=== PATIENT | female | born 1970 | race Hispanic/Latino ===

== ENCOUNTER 2024-06-09 23:19 | Emergency (ER) | payer MEDICAID ==
[~2024-06-09 23:19] MED LIST: ALBU6.7H14 IH; ASPI-1443 PO; ATOR40TA71 PO; BUPR-49 PO; CALC-1121 PO; CETI10TA57 PO; FENO145T26 PO; GABA-531 PO; GLIP5TAB15 PO; IBUP-2070 PO; LOSA50TA64 PO; METF-444 PO; NAPR-1192 PO; QUET300T19 PO
--- NOTE | 2024-06-09 23:28 | ERN ---
General Chief Complaint: Abdominal Pain Stated Complaint: ABDOMINAL PAIN, KNEE PAIN, ITCHING TO HANDS Time Seen by MD: 23:22 History of Present Illness Initial Comments 54F, hx HTN & obesity, presents for bilateral flank pain beginning 2 hours ago. She reports she has been in her normal state of health when she had sudden onset of left upper flank and right flank pain. She reports severe pain that is waxing and waning. She called EMS. EMS reports stable vital signs. Patient denies vomiting. She reports some recent loose stools without blood or mucus. No fevers. No chest pain or shortness of breath. She also reports that a few hours ago she had a fall onto her right knee. There is some pain but she is ambulatory. Neurovascularly intact. Allergies: Coded Allergies: No Known Drug Allergies (Verified Allergy, Severe, 01/05/16) Home Meds Reported Medications Calcium Carb/Magnesium Hydrox (Rolaids Chewable Tablet) 1 Each Tab.chew, 1 TAB PO TID PRN for INDIGESTION, TAB.CHEW 01/05/16 Naproxen (Naproxen) 375 Mg Tablet, 375 MG PO BID 01/05/16 Albuterol Sulfate (Proventil Hfa) 6.7 Gm Hfa.aer.ad, 2 PUFF IH Q6H 01/05/16 Quetiapine Fumarate (Quetiapine Fumarate) 300 Mg Tablet, 300 MG PO HS 01/05/16 Glipizide (Glipizide) 5 Mg Tablet, 5 MG PO ACBKFST 01/05/16 Cetirizine HCl (Cetirizine HCl) 10 Mg Tablet, 10 MG PO DAILY 01/05/16 Atorvastatin Calcium (Atorvastatin Calcium) 40 Mg Tablet, 40 MG PO DAILY 01/05/16 Metformin HCl (Metformin HCl) 500 Mg Tablet, 500 MG PO BIDMEALS 01/05/16 Bupropion HCl (Bupropion Xl) 150 Mg Tab.er.24h, 150 MG PO DAILY 01/05/16 Ibuprofen (Ibuprofen) 600 Mg Tablet, 600 MG PO Q6H PRN for PAIN 01/05/16 Fenofibrate Nanocrystallized (Fenofibrate) 145 Mg Tablet, 145 MG PO DAILY, TAB 01/05/16 Gabapentin (Gabapentin) 300 Mg Capsule, 300 MG PO BID 01/05/16 Aspirin (Aspirin EC) 81 Mg Tablet.dr, 81 MG PO DAILY 01/05/16 Losartan Potassium (Losartan Potassium) 50 Mg Tablet, 50 MG PO DAILY 01/05/16 Past Medical History Past Medical History: Diabetes-Type II, High Cholesterol, Hypertension Past Surgical History: None ROS Dictation CONSTITUTIONAL: No chills, no fever, no weakness, no diaphoresis, no malaise. HEAD/FACE: No signs of trauma. EENT: No eye pain, no blurred vision, no tearing, no double vision, no ear pain, no ear discharge, no nose pain, no nasal congestion, no throat pain, no throat swelling, no mouth pain. RESPIRATORY: No cough, no orthopnea, no SOB, no stridor, no wheezing. CARDIOVASCULAR: No chest pain, no edema, no palpitations, no syncope. GASTROINTESTINAL/ABDOMINAL: Abdominal pain GENITOURINARY: No abnormal discharge, no dysuria, no frequent urination, no hematuria. No complaints of pain in the genitals. MUSCULOSKELETAL: Right knee pain INTEGUMENTARY: No change in color, no change in hair/nails, no dryness, no lesion, no lumps, no rash. NEUROLOGICAL/PSYCH: No anxiety, not depressed, no emotional problem, no headache, no numbness, no pre-existing deficit, no history of seizures, no tremors, no weakness. HEMATOLOGIC/LYMPHATIC: Not anemic, no history of blood clots, no apparent b leeding, no bruising, glands not swollen. All Systems Negative, Except as Noted. Physical Exam Physical Exam Dictation VITAL SIGNS: Reviewed. GENERAL APPEARANCE: Alert, oriented x3, no acute distress, obese. HEAD AND FACE: Non-traumatic. EYES: PERRL, pink conjunctivas, eyelid no trauma, anterior chamber clear. EARS: Pinnas intact and no signs of trauma or erythema. Ear canals clear and no discharge. TMs no erythema. NOSE: No discharge, no bleeding. OROPHARYNX: Mouth normal, teeth no caries, tongue pink. Pharynx clear, no erythema. Tonsils no exudates, no abscesses noted. Mucous membrane moist. NECK: Supple, non-tender, no thyromegaly, no masses, no JVD, no bruits. BREAST: Deferred. CHEST: No tenderness, no crepitus, no paradoxical movement, no retractions. LUNGS: Clear, well-ventilated, symmetric, no rales, no wheezing, no rhonchi, no stridor, good breath sounds bilaterally. HEART: Regular rate, regular rhythm, no murmur, no gallops. VASCULAR: No peripheral edema. ABDOMEN: Soft, positive bowel sounds, nondistended, no guarding, nontender, no rebound, no masses no hepatomegaly, no splenomegaly, no Caceres's sign, no hernias. RECTAL: Deferred. GENITAL: Deferred. NEUROLOGICAL: Normal speech, gross motor function intact, gross sensory function intact. MUSCULOSKELETAL: Neck nontender, full range of motion, back nontender, full ra nge of motion. EXTREMITIES: Nontender, full range of motion. SKIN: Color pink, dry, no turgor, no rash, no lacerations, no abrasions, no contusions. LYMPHATICS: Deferred. Results Laboratory and Microbiology Lab and Micro Result Laboratory Tests Test 06/09/24 23:34 06/09/24 23:39 White Blood Count 8.5 K/uL (4.8-10.8) Red Blood Count 4.79 MIL/uL (4.00-5.50) Hemoglobin 14.0 g/dL (12.0-16.0) Hematocrit 42.7 % (36-48) Mean Corpuscular Volume 89.1 fL (79-99) Mean Corpuscular Hemoglobin 29.2 pg (27.0-33.0) Mean Corpuscular Hemoglobin Concent 32.8 g/dL (32.0-36.0) Red Cell Distribution Width 14.8 % (11.0-15.5) Platelet Count 245 K/uL (130-400) Mean Platelet Volume 10.0 fL (7.5-10.5) Immature Granulocyte % (Auto) 0.4 % (0-1) Neutrophils (%) (Auto) 60.8 % (40.0-77.0) Lymphocytes (%) (Auto) 30.1 % (21.0-51.0) Monocytes (%) (Auto) 6.4 % (3.0-13.0) Eosinophils (%) (Auto) 2.1 % (0.0-8.0) Basophils (%) (Auto) 0.2 % (0.0-5.0) Neutrophils # (Auto) 5.2 K/uL (1.8-7.7) Lymphocytes # (Auto) 2.6 K/uL (1.0-4.8) Monocytes # (Auto) 0.5 K/uL (0.1-1.0) Eosinophils # (Auto) 0.18 K/uL (0.00-0.70) Basophils # (Auto) 0.02 K/uL (0.00-0.20) Absolute Immature Granulocyte (auto 0.03 K/uL (0-1) Nucleated Red Blood Cells 0.0 % (0.0-0.19) Sodium Level 133 mmol/L (136-145) L Potassium Level 3.9 mmol/L (3.5-5.1) Chloride Level 99 mmol/L (101-111) L Carbon Dioxide Level 27 mmol/L (21-32) Blood Urea Nitrogen 14 mg/dL (7-18) Creatinine 0.7 mg/dL (0.5-1.0) Glomerular Filtration Rate Calc 101 mL/min (>90) Random Glucose 276 mg/dL (70-105) H Total Calcium 9.7 mg/dL (8.5-10.1) Total Bilirubin 0.3 mg/dL (0.2-1.0) Direct Bilirubin 0.1 mg/dL (0.0-0.3) Aspartate Amino Transf (AST/SGOT) 9 U/L (10-37) L Alanine Aminotransferase (ALT/SGPT) 21 U/L (12-78) Alkaline Phosphatase 99 U/L (50-136) Troponin I High Sensitivity 5 ng/L (4-50) Total Protein 7.2 g/dL (6.0-8.3) Albumin 3.2 g/dL (3.5-5.0) L Lipase 61 U/L (16-77) Urine Color COLORLESS (YELLOW) Urine Appearance CLEAR (CLEAR) Urine pH 6.0 (5.0-8.0) Urine Specific [place] 1.005 (1.001-1.031) Urine Protein NEGATIVE mg/dL (NEGATIVE) Urine Glucose (UA) 500 mg/dL (NEGATIVE) H Urine Ketones NEGATIVE mg/dL (NEGATIVE) Urine Occult Blood NEGATIVE (NEGATIVE) Urine Nitrate NEGATIVE (NEGATIVE) Urine Bilirubin NEGATIVE mg/dL (NEGATIVE) Urine Urobilinogen 0.2 mg/dL (0.2-1.0) Urine Leukocyte Esterase 500 Pennie/uL (NEGATIVE) H Urine RBC 2-5 /HPF (0-1) H Urine WBC 26-50 /HPF (0-1) H Urine Squamous Epithelial Cells RARE /HPF (0-2) Urine Bacteria FEW /HPF (None Seen) MDM CC: Flank pain bilaterally, lower abdominal pain Historian: Patient Comorbidities: Hypertension and obesity Limitations by social determinants of health: None Initial differential diagnosis: Pyelo Nephritis, kidney stones, UTI, AAA, other Vital signs: Stable, remains stable in ER. CBC normal. BMP normal. Liver function tests normal. Glucose mildly elevated 276. Lipase normal. Urinalysis: Glucose, leuk esterase, WBCs. Concerned for infection. CT abdomen and pelvis unremarkable. My interpretation. X-ray shows some degenerative changes per my interpretation. Otherwise normal. Patient received 1 g of Rocephin here in the ER. 1 L of normal saline. Dose of Reglan. We will discharge with antibiotics recommended PCP follow up. Very low suspicion for SIRS or sepsis or life threats. ED Course Orders Procedure Category Date Status Time Cbc With Differential LAB 06/09/24 Complete 23:22 Troponin I High LAB 06/09/24 Complete Sensitivity 23:22 Urinalysis Profile LAB 06/09/24 Complete 23:22 Ct Abdomen/Pelvis CT 06/09/24 Resulted W/Contrast 23:22 12 Lead Ekg Tracing- EKG 06/09/24 Complete Technical 23:22 0.9%Nacl 1000ml (Ns PHA 06/09/24 Complete 1000ml) 23:30 Lipase LAB 06/09/24 Complete 23:22 Basic Metabolic Panel LAB 06/09/24 Complete 23:22 Hepatic Function Panel LAB 06/09/24 Complete 23:22 Metoclopramide 10 PHA 06/09/24 Complete Mg/2 Ml Vial (Reglan 1 23:30 Knee 3vws Rt RAD 06/09/24 Resulted 23:28 Culture Urine TRAN 06/09/24 In Process 23:50 Iohexol (Omnipaque) PHA 06/10/24 Complete 00:30 Ceftriaxone 1g Vial PHA 06/10/24 Complete (Rocephine 1g Inj) 01:00 Current Medications Medications (Trade) Dose Ordered Sig/Zach Route PRN Reason Start Time Stop Time Status Last Admin Dose Admin Ceftriaxone Sodium (ROCEphine 1G INJ) 1 gm ONCE ONCE IVPB 06/10/24 01:00 06/10/24 01:01 DC 06/10/24 00:55 Iohexol (Omnipaque) 35,000 mg STK-MED ONCE IV 06/10/24 00:30 06/10/24 00:30 DC Metoclopramide HCl (regLAN 10MG IV) 10 mg ONCE ONCE IVP 06/09/24 23:30 06/09/24 23:31 DC 06/09/24 23:53 Sodium Chloride 1,000 ml @ 0 mls/hr ONCE ONCE IV 06/09/24 23:30 06/09/24 23:31 DC 06/09/24 23:53 Vital Signs Date Time Temp Pulse Resp B/P (MAP) Pulse Ox O2 Delivery O2 Flow Rate FiO2 06/09/24 23:40 98.1 85 20 177/77 97 Room Air* 0 21 06/09/24 23:20 98.2 79 16 127/59 98 Room Air 0 DX & DISP Disposition: Discharge Departure Impression: Primary Impression: UTI (urinary tract infection) Additional Impression: Knee osteoarthritis Condition: Stable Scripts Cefpodoxime Proxetil (Cefpodoxime Proxetil) 100 Mg Tablet 1 TAB PO BID for 7 Days, #14 TAB 0 Refills Prov: MARIA G NOLAN DO 06/10/24 Meloxicam (Meloxicam) 15 Mg Tablet 15 MG PO DAILY PRN for PAIN for 10 Days, #10 TAB Prov: MARIA G NOLAN DO 06/10/24 Additional Instructions: You have a urinary tract infection. This is likely causing your symptoms. You also have osteoarthritis in your right knee. This may be causing your symptoms. Your blood work (CBC, BMP, liver function tests, lipase urinalysis) shows urinary tract infection. You also have mildly elevated blood glucose. Otherwise your lab work is normal. The knee x-ray shows osteoarthritis or degenerative changes. The CT scan of the abdomen and pelvis is unremarkable. You received 1 g of Rocephin, which is an antibiotic, here in the emergency depa rtment. You also received IV fluids and Reglan for abdominal discomfort. I have prescribed cefpodoxime, which is an antibiotic. Please take as prescribed. I have prescribed meloxicam to use as needed for the arthritis in her right knee. You can also wrapped the knee and use ice as needed. I recommend he follow up with her primary doctor for re-evaluation later this week. Referrals: MICHELLE TOVAR MD (PCP) MARIA G NOLAN DO Jun 09, 2024 23:28
--- NOTE | 2024-06-09 23:40 | EKG ---
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
[2024-06-09 23:42] LABS: BASOPHILS # (AUTO) 0.02 K/uL (0.00-0.20); BASOPHILS % (AUTO) 0.2 % (0.0-5.0); EOSINOPHILS # (AUTO) 0.18 K/uL (0.00-0.70); EOSINOPHILS % (AUTO) 2.1 % (0.0-8.0); HEMATOCRIT 42.7 % (36-48); IMMATURE GRANULOCYTE ABSOLUTE 0.03 K/uL (0-1); LYMPHOCYTES # (AUTO) 2.6 K/uL (1.0-4.8); LYMPHOCYTES % (AUTO) 30.1 % (21.0-51.0); MEAN CORPUSCULAR HEMOGLOBIN 29.2 pg (27.0-33.0); MEAN CORPUSCULAR HGB CONC 32.8 g/dL (32.0-36.0); MEAN CORPUSCULAR VOLUME 89.1 fL (79-99); MONOCYTES # (AUTO) 0.5 K/uL (0.1-1.0); MONOCYTES % (AUTO) 6.4 % (3.0-13.0); NEUTROPHILS # (AUTO) 5.2 K/uL (1.8-7.7); NEUTROPHILS % (AUTO) 60.8 % (40.0-77.0); PLATELET COUNT (AUTO) 245 K/uL (130-400); RED BLOOD CELL COUNT(AUTO) 4.79 MIL/uL (4.00-5.50); RED CELL DISTRIBUTION WIDTH 14.8 % (11.0-15.5); WHITE BLOOD COUNT (AUTO) 8.5 K/uL (4.8-10.8)
[2024-06-09 23:49] LABS: APPEARANCE,URINE CLEAR (CLEAR); BILIRUBIN,URINE NEGATIVE (NEGATIVE); COLOR,URINE COLORLESS (YELLOW); GLUCOSE, URINE (UA) 500 mg/dL (NEGATIVE); KETONES,URINE NEGATIVE (NEGATIVE); LEUKOCYTE ESTERASE ,URINE 500 Leu/uL (NEGATIVE); NITRATE,URINE NEGATIVE (NEGATIVE); OCCULT BLOOD,URINE NEGATIVE (NEGATIVE); PROTEIN,URINE NEGATIVE (NEGATIVE); UROBILINOGEN,URINE 0.2 mg/dL (0.2-1.0)
[2024-06-09 23:50] LABS: ADD UA MICROSCOPIC YES
[2024-06-09] MEDS: metoCLOPRAmide 10 MG/2 ML VIAL IVP ONE (23:53)
[2024-06-09] MEDS: 0.9%NACL 1000ML 1,000 ML IV ONE (23:53)
[2024-06-09 23:56] LABS: BACTERIA,URINE FEW /HPF (None Seen); MUCUS,URINE RARE LPF (None Seen); SQUAMOUS EPITHELIAL CELL,UR RARE /HPF (0-2); WBC,URINE 26-50 /HPF (0-1)
[2024-06-10] LABS: ALBUMIN 3.2 g/dL (3.5-5.0); BILIRUBIN,DIRECT 0.1 mg/dL (0.0-0.3); BILIRUBIN,TOTAL 0.3 mg/dL (0.2-1.0); CREATININE 0.7 mg/dL (0.5-1.0); POTASSIUM 3.9 mmol/L (3.5-5.1); TOTAL PROTEIN, SERUM 7.2 g/dL (6.0-8.3)
--- NOTE | 2024-06-10 00:06 | HMCIMG ---
KNEE 3VWS RT HISTORY: Status post fall COMPARISON: None TECHNIQUE: 3 images of left knee were obtained. FINDINGS: There is no acute displaced fracture or dislocation. Mild degenerative changes are seen. IMPRESSION: 1. Findings as described above.
[2024-06-10] MEDS ORDERED: IOHEXOL 350 MG/ML 100ML INFUS..BTL IV ONE (00:30)
[2024-06-10] MEDS: cefTRIAXone 1G VIAL IVPB ONE (00:55)
--- NOTE | 2024-06-10 01:13 | HMCIMG ---
CT ABDOMEN/PELVIS W/CONTRAST HISTORY: Abdominal pain COMPARISON: 07/18/2016 TECHNIQUE: Multiple sequential axial images of the abdomen and pelvis were obtained from the dome of the diaphragm through symphysis pubis. Patient was given 100 cc of Omnipaque through intravenous route. Oral contrast was not given. FINDINGS: No pleural effusion is seen bilaterally. There is no evidence of parenchymal disease or pulmonary nodule of the visualized lower lungs. Degenerative changes of the thoracolumbar spine are present. The heart is not enlarged. Gallbladder is not seen. Liver is enlarged measuring 22 cm. The liver, spleen, adrenal glands and pancreas are unremarkable. There is no evidence of hydronephrosis bilaterally. No evidence of renal stone is seen. Fecal material is seen in the colon. There are normal size retroperitoneal and mesenteric lymph nodes. No ascites is seen. No CT evidence of acute appendicitis is seen. Pelvic sidewalls are symmetric bilaterally. Bladder is poorly distended. IMPRESSION: 1. No acute findings. CT was performed with one or more following dose reduction techniques: automated exposure control, adjustment of the mA and kv according to patient's size, or use of a iterative reconstruction technique.
[2024-06-10] MEDS ORDERED: MELO-108 PO (01:47)
[2024-06-10] MEDS ORDERED: CEFP100T9 PO (01:47)
[2024-06-10 01:57] VITALS: BP 116/66; PULSE 85; RESP 20; TEMP 98.1; O2SAT 98
== END 2024-06-10 02:10 | disposition home or self-care (01) ==
LOC: EDH 23:19
DX: N39.0 Urinary tract infection, site not specified (principal); M17.11 Unilateral primary osteoarthritis, right knee; E11.9 Type 2 diabetes mellitus without complications; E66.9 Obesity, unspecified; E78.00 Pure hypercholesterolemia, unspecified; I10 Essential (primary) hypertension; Z79.82 Long term (current) use of aspirin; Z79.899 Other long term (current) drug therapy
CPT/HCPCS: 99285; 74177; 96361; 96375; 80076; 84484; 80048; 83690; 85025; 87086; 81001; 36415; 73562; 93005; 96365; J7030; J2765; J0696; Q9967

== ENCOUNTER 2024-07-29 19:57 | Emergency (ER) | payer MEDICAID ==
[~2024-07-29] VITALS: Ht 157.5 cm; Wt 127.0 kg
[~2024-07-29 19:57] MED LIST changes: +CEFP100T9 PO; +MELO-108 PO
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
[2024-07-29] MEDS: acetaMINOPHEN 500 MG TABLET PO ONE (20:44)
--- NOTE | 2024-07-29 20:58 | HMCIMG ---
ANKLE COMP 3VWS RT HISTORY: Ankle pain COMPARISON: None TECHNIQUE: 3 images of right ankle were obtained. FINDINGS: There is no acute displaced fracture or dislocation. There is soft tissue swelling. There is a calcaneal spur. Degenerative changes are seen. IMPRESSION: 1. Findings as described above.
--- NOTE | 2024-07-29 21:55 | HMCIMG ---
ELBOW COMP 3+VWS LT HISTORY: Elbow pain COMPARISON: None TECHNIQUE: 3 images of left elbow were obtained. FINDINGS: There is no acute displaced fracture or dislocation. Degenerative changes are seen. The study is limited due to poor positioning. IMPRESSION: 1. Findings as described above.
[2024-07-29] MEDS: ketOROlac 30MG VIAL (30MG/ML) IM ONE (21:56)
[2024-07-29] MEDS ORDERED: DICL20GE TP (22:01)
[2024-07-29 23:00] VITALS: BP 122/74; PULSE 92; RESP 16; TEMP 98; O2SAT 99
== END 2024-07-29 23:14 | disposition home or self-care (01) ==
LOC: EDH 19:57
DX: G89.29 Other chronic pain (principal); M25.571 Pain in right ankle and joints of right foot; M25.722 Osteophyte, left elbow; E11.9 Type 2 diabetes mellitus without complications; E78.00 Pure hypercholesterolemia, unspecified; I10 Essential (primary) hypertension; Z79.82 Long term (current) use of aspirin; Z79.899 Other long term (current) drug therapy
CPT/HCPCS: 99284; 73610; 73080; 96372; J1885

== ENCOUNTER 2024-08-14 00:20 | Emergency (ER) | payer MEDICAID ==
[~2024-08-14 00:20] MED LIST changes: +DICL20GE TP
[2024-08-14 00:30] VITALS: TEMP 98.3
[2024-08-14 01:17] LABS: BASOPHILS # (AUTO) 0.03 K/uL (0.00-0.20); BASOPHILS % (AUTO) 0.4 % (0.0-5.0); EOSINOPHILS # (AUTO) 0.28 K/uL (0.00-0.70); EOSINOPHILS % (AUTO) 3.4 % (0.0-8.0); HEMATOCRIT 43.7 % (36-48); IMMATURE GRANULOCYTE ABSOLUTE 0.04 K/uL (0-1); LYMPHOCYTES # (AUTO) 3.1 K/uL (1.0-4.8); LYMPHOCYTES % (AUTO) 37.3 % (21.0-51.0); MEAN CORPUSCULAR HEMOGLOBIN 29.7 pg (27.0-33.0); MEAN CORPUSCULAR HGB CONC 32.7 g/dL (32.0-36.0); MEAN CORPUSCULAR VOLUME 90.7 fL (79-99); MONOCYTES # (AUTO) 0.6 K/uL (0.1-1.0); NEUTROPHILS # (AUTO) 4.3 K/uL (1.8-7.7); NEUTROPHILS % (AUTO) 51.4 % (40.0-77.0); PLATELET COUNT (AUTO) 250 K/uL (130-400); RED BLOOD CELL COUNT(AUTO) 4.82 MIL/uL (4.00-5.50); RED CELL DISTRIBUTION WIDTH 14.5 % (11.0-15.5); WHITE BLOOD COUNT (AUTO) 8.3 K/uL (4.8-10.8)
[2024-08-14] MEDS: 0.9%NACL 1000ML 1,000 ML IV ONE (01:22)
[2024-08-14] MEDS: INSULIN humuLIN R 100 UNIT/ML 3ML IV ONE (01:23)
[2024-08-14 01:26] LABS: APPEARANCE,URINE CLEAR (CLEAR); BILIRUBIN,URINE NEGATIVE (NEGATIVE); COLOR,URINE YELLOW (YELLOW); GLUCOSE, URINE (UA) >=1000 mg/dL (NEGATIVE); KETONES,URINE 5 mg/dL (NEGATIVE); LEUKOCYTE ESTERASE ,URINE 250 Leu/uL (NEGATIVE); MUCUS,URINE RARE LPF (None Seen); NITRATE,URINE NEGATIVE (NEGATIVE); OCCULT BLOOD,URINE NEGATIVE (NEGATIVE); PROTEIN,URINE NEGATIVE (NEGATIVE); SQUAMOUS EPITHELIAL CELL,UR FEW /HPF (0-2); UROBILINOGEN,URINE 0.2 mg/dL (0.2-1.0)
[2024-08-14 01:30] LABS: CREATININE 0.7 mg/dL (0.5-1.0); POTASSIUM 4.4 mmol/L (3.5-5.1)
--- NOTE | 2024-08-14 01:38 | ERN ---
ED Note History of Present Illness Stated Complaint: C/O RASH AND ITCHYING TO HANDS AND GROIN AREA Chief Complaint: Skin Rash/Abscess Time Seen by MD: 00:44 Time Seen by Midlevel: 00:44 Dictation: The patient is a 54-year-old female with a history of hypertension, diabetes, bipolar who presents to the emergency department with complaints of itchiness in between her fingers and in her groin area onset 7:00 p.m.. Patient reports itchiness stopped in the ambulance. Denies any known allergens. Allergies: Coded Allergies: No Known Drug Allergies (Verified Allergy, Severe, 01/05/16) Home Meds Active Scripts Diclofenac Sodium (Voltaren Arthritis Pain) 1 % Gel..gram., 20 GM TP BID for 10 Days, #1 TUBE Prov:SANGEETA GUILLAUME MD 07/29/24 Cefpodoxime Proxetil (Cefpodoxime Proxetil) 100 Mg Tablet, 1 TAB PO BID for 7 Days, #14 TAB 0 Refills Prov:MARIA G NOLAN DO 06/10/24 Meloxicam (Meloxicam) 15 Mg Tablet, 15 MG PO DAILY PRN for PAIN for 10 Days, #10 TAB Prov:MARIA G NOLAN DO 06/10/24 Reported Medications Calcium Carb/Magnesium Hydrox (Rolaids Chewable Tablet) 1 Each Tab.chew, 1 TAB PO TID PRN for INDIGESTION, TAB.CHEW 01/05/16 Naproxen (Naproxen) 375 Mg Tablet, 375 MG PO BID 01/05/16 Albuterol Sulfate (Proventil Hfa) 6.7 Gm Hfa.aer.ad, 2 PUFF IH Q6H 01/05/16 Quetiapine Fumarate (Quetiapine Fumarate) 300 Mg Tablet, 300 MG PO HS 01/05/16 Glipizide (Glipizide) 5 Mg Tablet, 5 MG PO ACBKFST 01/05/16 Cetirizine HCl (Cetirizine HCl) 10 Mg Tablet, 10 MG PO DAILY 01/05/16 Atorvastatin Calcium (Atorvastatin Calcium) 40 Mg Tablet, 40 MG PO DAILY 01/05/16 Metformin HCl (Metformin HCl) 500 Mg Tablet, 500 MG PO BIDMEALS 01/05/16 Bupropion HCl (Bupropion Xl) 150 Mg Tab.er.24h, 150 MG PO DAILY 01/05/16 Ibuprofen (Ibuprofen) 600 Mg Tablet, 600 MG PO Q6H PRN for PAIN 01/05/16 Fenofibrate Nanocrystallized (Fenofibrate) 145 Mg Tablet, 145 MG PO DAILY, TAB 01/05/16 Gabapentin (Gabapentin) 300 Mg Capsule, 300 MG PO BID 01/05/16 Aspirin (Aspirin EC) 81 Mg Tablet.dr, 81 MG PO DAILY 01/05/16 Losartan Potassium (Losartan Potassium) 50 Mg Tablet, 50 MG PO DAILY 01/05/16 Past Medical History Past Medical History: Bipolar, Diabetes-Type II, High Cholesterol, Hypertension Additional Past Medical Hx: INSOMNIA Surgical History: Other Surgical History Other: HERNIA REPAIR RN Note Reviewed/Agreed w/PFSH: Yes Review of System Dictation Constitutional: Negative for fever,chills, and weight loss Eyes: Negative for injury, pain,redness, and discharge ENT: Negative for injury,pain or swelling Cardiovascular: Negative for chest pain, palpitations, and edema Respiratory: Negative for shortness of breath, cough, and wheezing, Abdomen/GI: Negative for abdominal pain, nausea, vomiting, diarrhea, and constipation Back: Negative for injury and pain : Negative for injury, bleeding and discharge MS/Extremity: Negative for injury and deformity Skin: Negative for rash, and discoloration positive for itchiness Neuro: Negative for headache, weakness, numbness, tingling, and seizure Psych: Negative for suicide ideation, homicidal ideation, and hallucinations Initial Vital Sign VS Vital Signs Date Time Temp Pulse Resp B/P (MAP) Pulse Ox O2 Delivery O2 Flow Rate FiO2 08/14/24 00:30 98.2 87 18 130/75 97 Room Air 0 08/14/24 00:57 21 Physical Exam Dictation Vital Signs reviewed General Appearance: Alert, oriented x 3, no acute distress, well developed, nourished. Head and Face: non-traumatic. Eyes: PERRL, pink conjunctivas, eyelid no trauma, anterior chamber with arcus senilis. Ears: Pinnas intact and no signs of trauma or erythema ear canals clear and no discharge TM no erythema Nose: No discharge, no bleeding. Oropharynx: Mouth normal, tongue pink. pharynx clear,no erythema, tonsils no exudates, no abscesses noted, mucous membrane moist Neck: Supple, non-tender, no thyromegaly, no masses, no JVD, no bruits Breast:Deferred Chest:No tenderness, no crepitus, no paradoxical movement, no retractions Lungs:Clear, well-ventilated, symmetric, no rales, no wheezing, no rhonchi, no stridor, good breath sounds bilaterally Heart: Regular rate, regular rhythm, no murmur, no gallops Vascular: no peripheral edema, Abdomen: Soft, positive bowel sounds, nondistended, no guarding, nontender, no rebound, no masses no hepatomegaly, no splenomegaly, no Caceres's sign, no hernias. 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 Multiple scabs noted to upper extremities and lower extremities, no draining about 0.5 cm in diameter. No obvious wounds in between fingers Lymphatic: Deferred Results (Laboratory/Radiology) Laboratory/Radiology Laboratory Tests Test 08/14/24 00:47 08/14/24 00:48 08/14/24 01:05 Urine Color YELLOW (YELLOW) Urine Appearance CLEAR (CLEAR) Urine pH 6.0 (5.0-8.0) Urine Specific [place] 1.023 (1.001-1.031) Urine Protein NEGATIVE mg/dL (NEGATIVE) Urine Glucose (UA) >=1000 mg/dL (NEGATIVE) H Urine Ketones 5 mg/dL (NEGATIVE) H Urine Occult Blood NEGATIVE (NEGATIVE) Urine Nitrate NEGATIVE (NEGATIVE) Urine Bilirubin NEGATIVE mg/dL (NEGATIVE) Urine Urobilinogen 0.2 mg/dL (0.2-1.0) Urine Leukocyte Esterase 250 Pennie/uL (NEGATIVE) H Urine RBC 2-5 /HPF (0-1) H Urine WBC 6-10 /HPF (0-1) H Urine Squamous Epithelial Cells FEW /HPF (0-2) Urine Bacteria None /HPF (None Seen) Whole Blood Glucose 326 MG/DL (70-110) H White Blood Count 8.3 K/uL (4.8-10.8) Red Blood Count 4.82 MIL/uL (4.00-5.50) Hemoglobin 14.3 g/dL (12.0-16.0) Hematocrit 43.7 % (36-48) Mean Corpuscular Volume 90.7 fL (79-99) Mean Corpuscular Hemoglobin 29.7 pg (27.0-33.0) Mean Corpuscular Hemoglobin Concent 32.7 g/dL (32.0-36.0) Red Cell Distribution Width 14.5 % (11.0-15.5) Platelet Count 250 K/uL (130-400) Mean Platelet Volume 10.4 fL (7.5-10.5) Immature Granulocyte % (Auto) 0.5 % (0-1) Neutrophils (%) (Auto) 51.4 % (40.0-77.0) Lymphocytes (%) (Auto) 37.3 % (21.0-51.0) Monocytes (%) (Auto) 7.0 % (3.0-13.0) Eosinophils (%) (Auto) 3.4 % (0.0-8.0) Basophils (%) (Auto) 0.4 % (0.0-5.0) Neutrophils # (Auto) 4.3 K/uL (1.8-7.7) Lymphocytes # (Auto) 3.1 K/uL (1.0-4.8) Monocytes # (Auto) 0.6 K/uL (0.1-1.0) Eosinophils # (Auto) 0.28 K/uL (0.00-0.70) Basophils # (Auto) 0.03 K/uL (0.00-0.20) Absolute Immature Granulocyte (auto 0.04 K/uL (0-1) Nucleated Red Blood Cells 0.0 % (0.0-0.19) Sodium Level 136 mmol/L (136-145) Potassium Level 4.4 mmol/L (3.5-5.1) Chloride Level 101 mmol/L (101-111) Carbon Dioxide Level 28 mmol/L (21-32) Blood Urea Nitrogen 19 mg/dL (7-18) H Creatinine 0.7 mg/dL (0.5-1.0) Glomerular Filtration Rate Calc 101 mL/min (>90) Random Glucose 343 mg/dL (70-105) H Total Calcium 9.2 mg/dL (8.5-10.1) Total Bilirubin 0.4 mg/dL (0.2-1.0) Direct Bilirubin 0.1 mg/dL (0.0-0.3) Aspartate Amino Transf (AST/SGOT) 12 U/L (10-37) Alanine Aminotransferase (ALT/SGPT) 26 U/L (12-78) Alkaline Phosphatase 92 U/L (50-136) Troponin I High Sensitivity 6 ng/L (4-50) Total Protein 6.5 g/dL (6.0-8.3) Albumin 3.1 g/dL (3.5-5.0) L Lipase 47 U/L (16-77) Labs Reviewed?: Yes EKG: (+) NSR, (+) rhythm (Sinus rhythm) EKG Comment: EKG 08/14/2024 0156 ventricular rate 80, regular rate and rhythm, normal sinus rhythm, no STEMI, low voltage ED Course ED Course Orders Procedure Category Date Status Time Cbc With Differential LAB 08/14/24 Complete 00:59 0.9%Nacl 1000ml (Ns PHA 08/14/24 Complete 1000ml) 01:00 Basic Metabolic Panel LAB 08/14/24 Complete 00:59 Insulin Regular, PHA 08/14/24 Complete Human 3ml (Humulin R 01:00 Pelvic Exam Set Up CPOE 08/14/24 Transmitted (Er) 00:59 Urinalysis LAB 08/14/24 Complete W/Microscopic 00:47 Culture Urine TRAN 08/14/24 In Process 01:26 Diphenhydramine Hcl PHA 08/14/24 Complete (Benadryl Inj) 02:00 Ceftriaxone 1g Vial PHA 08/14/24 Complete (Rocephine 1g Inj) 02:00 12 Lead Ekg Tracing- EKG 08/14/24 Logged Technical 01:52 Acetaminophen 500mg PHA 08/14/24 Complete Tab (Tylenol 500mg T 02:00 Lipase LAB 08/14/24 Complete 01:52 Hepatic Function Panel LAB 08/14/24 Complete 01:52 Troponin I High LAB 08/14/24 Complete Sensitivity 01:52 Famotidine 20mg Vial PHA 08/14/24 Complete (Pepcid 20mg Vial) 02:00 Current Medications Medications (Trade) Dose Ordered Sig/Zach Route PRN Reason Start Time Stop Time Status Last Admin Dose Admin Acetaminophen (TYLenol 500MG TAB) 1,000 mg ONCE ONCE PO 08/14/24 02:00 08/14/24 02:01 DC 12/12/24 02:19 Ceftriaxone Sodium (ROCEphine 1G INJ) 1 gm ONCE ONCE IVPB 08/14/24 02:00 08/14/24 02:01 DC 08/14/24 02:15 Diphenhydramine HCl (BENAdryl INJ) 25 mg ONCE ONCE IV 08/14/24 02:00 08/14/24 02:01 DC 08/14/24 02:17 Famotidine (Pepcid 20mg Vial) 20 mg ONCE ONCE IV 08/14/24 02:00 08/14/24 02:01 DC 08/14/24 02:14 Insulin Human Regular (humuLIN R 100 UNIT/ML 3ML) 5 unit ONCE ONCE IV 08/14/24 01:00 08/14/24 01:02 DC 08/14/24 01:23 Sodium Chloride 1,000 ml @ 0 mls/hr ONCE ONCE IV 08/14/24 01:00 08/14/24 01:02 DC 08/14/24 01:22 Vital Signs Date Time Temp Pulse Resp B/P (MAP) Pulse Ox O2 Delivery O2 Flow Rate FiO2 08/14/24 00:57 84 18 129/70 97 Room Air* 0 21 08/14/24 00:30 98.2 87 18 130/75 97 Room Air 0 Medical Decision Making MDM The patient is a 54-year-old female with a history of hypertension, diabetes, bipolar who presents to the emergency department with complaints of itchiness in between her fingers and in her groin area onset 7:00 p.m.. Patient reports itchiness stopped in the ambulance. Denies any known allergens. Upon exami nation of pelvic exam patient reported she has mid right and left side abdominal pain that is worse with movement. Patient inconsistent with the history reports that is has been going on for a month. Reports occasional nonbloody diarrhea. Denies any nausea, vomiting, chest pain. CBC showed no leukocytosis, no anemia, chemistry showed hyperglycemia with no DKA. Patient was treated with the insulin and fluids, negative lipase, normal liver enzymes, negative troponin, normal renal function, urinalysis positive for UTI. Patient was treated with the Rocephin. Patient continues in no distress. On physical examination abdomen is soft and nontender to palpation. Patient will be discharged to follow up with PCP. Differential diagnosis: UTI, pancreatitis, gastroenteritis, scabies, hives, ACS, allergic reaction Need for hospitalization: Patient does not meet criteria for hospitalization. There are no social concerns with this patient. DX & DISP Disposition: Discharge Departure Impression: Primary Impression: Scabies Additional Impressions: UTI (urinary tract infection), Uncontrolled diabetes mellitus with hyperglycemia, Abdominal pain, Diarrhea Condition: Stable Scripts Permethrin (Permethrin) 5 % Cream..g. 1 APPL TP ONCE for 1 Day, #60 GM 0 Refills massage into skin from head to soles of feet one time, leave on for 8-14 hours then remove by thorough washing Prov: NIDIA GONZALES 08/14/24 Nitrofurantoin Monohyd/M-Cryst (Macrobid 100 mg Capsule) 100 Mg Capsule 1 CAP PO BID for 5 Days, #10 CAP 0 Refills Prov: NIDIA GONZALES 08/14/24 Additional Instructions: Please follow up with pcp in 1-2 days, take medications as prescribed. If symptoms worsen or dont improve please return to ER or visit PCP for possible dermatology referral. FOLLOW-UP WITH PRIMARY CARE PROVIDER IN 1 TO 2 DAYS. TAKE MEDICATIONS D IRECTED HERE IN THE EMERGENCY ROOM. OKAY TO CONTINUE HOME MEDICATIONS UNLESS OTHERWISE DISCUSSED DURING YOUR VISIT IN THE EMERGENCY ROOM TODAY. RETURN TO YOUR NEAREST EMERGENCY ROOM IF SYMPTOMS WORSEN OR IF THERE IS NO IMPROVEMENT. CALL 911 IF YOU NEED IMMEDIATE ASSISTANCE. TAKE TYLENOL OR MOTRIN [id number] NEEDED AND IF NO CONTRAINDICATIONS ARE PRESENT. INCREASE ORAL HYDRATION. A WOUND CULTURE OR URINE CULTURE WAS ORDERED HERE IN THE EMERGENCY ROOM DEPARTMENT PLEASE FOLLOW-UP WITH PRIMARY CARE PROVIDER AND ADVISE THEM TO GET REPEAT PORTS FROM OUR FACILITY. IF YOU HAD ANY JENNIE WRAP/SPLINTS THAT WERE APPLIED HERE, PLEASE DO NOT REMOVE THEM UNTIL YOU SEE YOUR PRIMARY CARE OR SPECIALTY. Referrals: JAKE CASON MD (PCP) Time of Disposition: 02:41 I have reviewed the case, and I agree with, Diagnosis and Plan CHRISTIANNIDIA COPE Aug 14, 2024 01:38
[2024-08-14] MEDS: FAMOTIDINE 20MG VIAL IV ONE (02:14)
[2024-08-14] MEDS: cefTRIAXone 1G VIAL IVPB ONE (02:15)
[2024-08-14] MEDS: DiphenhydrAMINE HCL 50 MG/ML VIAL IV ONE (02:17)
[2024-08-14] MEDS: acetaMINOPHEN 500 MG TABLET PO ONE (02:19)
[2024-08-14 02:27] LABS: ALBUMIN 3.1 g/dL (3.5-5.0); BILIRUBIN,DIRECT 0.1 mg/dL (0.0-0.3); BILIRUBIN,TOTAL 0.4 mg/dL (0.2-1.0); TOTAL PROTEIN, SERUM 6.5 g/dL (6.0-8.3)
[2024-08-14] MEDS ORDERED: PERM60CR4 TP (02:48)
[2024-08-14] MEDS ORDERED: NITR100C4 PO (02:48)
[2024-08-14 03:09] VITALS: BP 129/72; PULSE 79; RESP 18; O2SAT 96
--- NOTE | 2024-08-14 07:43 | EKG ---
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
== END 2024-08-14 03:52 | disposition home or self-care (01) ==
LOC: EDH 00:20
DX: B86 Scabies (principal); E11.65 Type 2 diabetes mellitus with hyperglycemia; N39.0 Urinary tract infection, site not specified; Z98.890 Other specified postprocedural states; E78.00 Pure hypercholesterolemia, unspecified; I10 Essential (primary) hypertension; F31.9 Bipolar disorder, unspecified; Z79.1 Long term (current) use of non-steroidal anti-inflammatories (NSAID); Z79.82 Long term (current) use of aspirin; Z79.899 Other long term (current) drug therapy; R19.7 Diarrhea, unspecified
CPT/HCPCS: 99284; 96365; 96375; 96361; 80076; 84484; 80048; 83690; 85025; 87086; 82948 ×2; 81001; 36415; 93005; J1815; J1200; J3490; J7030; J0696

== ENCOUNTER 2024-10-13 03:43 | Emergency (ER) | payer MEDICAID ==
[~2024-10-13] VITALS: Ht 157.5 cm; Wt 140.2 kg
[~2024-10-13 03:43] MED LIST changes: +NITR100C4 PO; +PERM60CR4 TP
--- NOTE | 2024-10-13 03:58 | ERN ---
ED Note History of Present Illness Stated Complaint: ABDOMINAL PAIN Chief Complaint: Abdominal Pain Time Seen by MD: 03:49 Dictation: This is a 54-year-old extremely obese female who came in via EMS for abdominal pain she stated that it started around midnight mostly in the upper abdomen throughout. She complains of nausea but no vomitings diarrhea hematemesis or melena. Her last bowel movement was earlier today. Stated that she did not eat anything because of the pain and she has not slept all night. No other family members are sick she denied any fevers chills or rigors. Temperature 98.2 pulse 87 respirations 16 blood pressure 119/55 with a pulse oximetry of 94% on room air Her chronic medical problems include diabetes mellitus type 2, hypertension, hypercholesterolemia and bipolar disorder Allergies: Coded Allergies: No Known Drug Allergies (Verified Allergy, Severe, 01/05/16) Home Meds Active Scripts Permethrin (Permethrin) 5 % Cream..g., 1 APPL TP ONCE for 1 Day, #60 GM 0 Refills massage into skin from head to soles of feet one time, leave on for 8-14 hours then remove by thorough washing Prov:NIDIA GONZALES [facility] 08/14/24 Nitrofurantoin Monohyd/M-Cryst (Macrobid 100 mg Capsule) 100 Mg Capsule, 1 CAP PO BID for 5 Days, #10 CAP 0 Refills Prov:NIDIA GONZALES [facility] 08/14/24 Diclofenac Sodium (Voltaren Arthritis Pain) 1 % Gel..gram., 20 GM TP BID for 10 Days, #1 TUBE Prov:SANGEETA GUILLAUME MD 07/29/24 Cefpodoxime Proxetil (Cefpodoxime Proxetil) 100 Mg Tablet, 1 TAB PO BID for 7 Days, #14 TAB 0 Refills Prov:MARIA G NOLAN DO 06/10/24 Meloxicam (Meloxicam) 15 Mg Tablet, 15 MG PO DAILY PRN for PAIN for 10 Days, #10 TAB Prov:MARIA G NOLAN DO 06/10/24 Reported Medications Calcium Carb/Magnesium Hydrox (Rolaids Chewable Tablet) 1 Each Tab.chew, 1 TAB PO TID PRN for INDIGESTION, TAB.CHEW 01/05/16 Naproxen (Naproxen) 375 Mg Tablet, 375 MG PO BID 01/05/16 Albuterol Sulfate (Proventil Hfa) 6.7 Gm Hfa.aer.ad, 2 PUFF IH Q6H 01/05/16 Quetiapine Fumarate (Quetiapine Fumarate) 300 Mg Tablet, 300 MG PO HS 01/05/16 Glipizide (Glipizide) 5 Mg Tablet, 5 MG PO ACBKFST 01/05/16 Cetirizine HCl (Cetirizine HCl) 10 Mg Tablet, 10 MG PO DAILY 01/05/16 Atorvastatin Calcium (Atorvastatin Calcium) 40 Mg Tablet, 40 MG PO DAILY 01/05/16 Metformin HCl (Metformin HCl) 500 Mg Tablet, 500 MG PO BIDMEALS 01/05/16 Bupropion HCl (Bupropion Xl) 150 Mg Tab.er.24h, 150 MG PO DAILY 01/05/16 Ibuprofen (Ibuprofen) 600 Mg Tablet, 600 MG PO Q6H PRN for PAIN 01/05/16 Fenofibrate Nanocrystallized (Fenofibrate) 145 Mg Tablet, 145 MG PO DAILY, TAB 01/05/16 Gabapentin (Gabapentin) 300 Mg Capsule, 300 MG PO BID 01/05/16 Aspirin (Aspirin EC) 81 Mg Tablet.dr, 81 MG PO DAILY 01/05/16 Losartan Potassium (Losartan Potassium) 50 Mg Tablet, 50 MG PO DAILY 01/05/16 Past Medical History Past Medical History: Bipolar, Diabetes-Type II, High Cholesterol, Hypertension Additional Past Medical Hx: INSOMNIA Surgical History: Other Surgical History Other: HERNIA REPAIR Family History: Negative Social History: Smokers (Half a pack per day) History: Not Applicable RN Note Reviewed/Agreed w/PFSH: Yes Review of System Dictation Constitutional: Negative for fever,chills, and weight loss Eyes: Negative for injury, pain,redness, and discharge ENT: Negative for injury,pain or swelling Cardiovascular: Negative for chest pain, palpitations, and edema Respiratory: Negative for shortness of breath, cough, and wheezing, Abdomen/GI: Positive for abdominal pain, nausea, denied vomiting, diarrhea, and constipation Back: Negative for injury and pain : Negative for injury, bleeding and discharge MS/Extremity: Negative for injury and deformity Skin: Negative for rash, and discoloration Neuro: Negative for headache, weakness, numbness, tingling, and seizure Psych: Negative for suicide ideation, homicidal ideation, and hallucinations Initial Vital Sign VS Vital Signs Date Time Temp Pulse Resp B/P (MAP) Pulse Ox O2 Delivery O2 Flow Rate FiO2 10/13/24 03:44 98.2 87 16 119/55 94 Room Air 0 10/13/24 04:48 21 Physical Exam Dictation General: awake, alert, NAD extremely obese Head/Face: Normocephalic, atraumatic Eyes: PERRL, EOMI, vision at baseline ENT: oral cavity clear, TMs clear, no signs of infection Neck: Trachea midline, supple, no nuchal rigidity Cardiovascular: RRR, normal S1/S2, No MRGs, no JVD Respiratory: CTAB, no respiratory distress, No rales or wheezes Abdomen: Soft, mild tenderness in the upper abdomen r, very obese, normal bowel sounds, no guarding or rebound. Skin: Warm, dry, normal turgor, no rash MS/Extremity: Pulses equal, no cyanosis, neurovascular intact, FROM Neuro: COAx4, GCS 15, strength 5/5, CN 2-12 intact, normal cerebellar exam, normal gait, Psych: Normal behavior, mood, and affect normal Extremities-trace edema without any palpable cords, Homans sign is negative Results (Laboratory/Radiology) Laboratory/Radiology Laboratory Tests Test 10/13/24 04:48 10/13/24 05:04 10/13/24 05:44 White Blood Count 8.3 K/uL (4.8-10.8) Red Blood Count 5.07 MIL/uL (4.00-5.50) Hemoglobin 15.4 g/dL (12.0-16.0) Hematocrit 45.0 % (36-48) Mean Corpuscular Volume 88.8 fL (79-99) Mean Corpuscular Hemoglobin 30.4 pg (27.0-33.0) Mean Corpuscular Hemoglobin Concent 34.2 g/dL (32.0-36.0) Red Cell Distribution Width 14.0 % (11.0-15.5) Platelet Count 248 K/uL (130-400) Mean Platelet Volume 10.6 fL (7.5-10.5) H Immature Granulocyte % (Auto) 0.4 % (0-1) Neutrophils (%) (Auto) 63.4 % (40.0-77.0) Lymphocytes (%) (Auto) 28.3 % (21.0-51.0) Monocytes (%) (Auto) 5.7 % (3.0-13.0) Eosinophils (%) (Auto) 2.0 % (0.0-8.0) Basophils (%) (Auto) 0.2 % (0.0-5.0) Neutrophils # (Auto) 5.3 K/uL (1.8-7.7) Lymphocytes # (Auto) 2.4 K/uL (1.0-4.8) Monocytes # (Auto) 0.5 K/uL (0.1-1.0) Eosinophils # (Auto) 0.17 K/uL (0.00-0.70) Basophils # (Auto) 0.02 K/uL (0.00-0.20) Absolute Immature Granulocyte (auto 0.03 K/uL (0-1) Nucleated Red Blood Cells 0.0 % (0.0-0.19) Sodium Level 138 mmol/L (136-145) Potassium Level 4.0 mmol/L (3.5-5.1) Chloride Level 100 mmol/L (101-111) L Carbon Dioxide Level 26 mmol/L (21-32) Blood Urea Nitrogen 8 mg/dL (7-18) Creatinine 0.5 mg/dL (0.5-1.0) Glomerular Filtration Rate Calc 110 mL/min (>90) Random Glucose 318 mg/dL (70-105) H Total Calcium 8.8 mg/dL (8.5-10.1) Lipase 22 U/L (16-77) Urine Color YELLOW (YELLOW) Urine Appearance CLOUDY (CLEAR) H Urine pH 5.5 (5.0-8.0) Urine Specific [place] 1.041 (1.001-1.031) Urine Protein 10 mg/dL (NEGATIVE) H Urine Glucose (UA) >=1000 mg/dL (NEGATIVE) H Urine Ketones 40 mg/dL (NEGATIVE) H Urine Occult Blood MODERATE (NEGATIVE) H Urine Nitrate NEGATIVE (NEGATIVE) Urine Bilirubin NEGATIVE mg/dL (NEGATIVE) Urine Urobilinogen 0.2 mg/dL (0.2-1.0) Urine Leukocyte Esterase 500 Pennie/uL (NEGATIVE) H Urine RBC 51-100 /HPF (0-1) H Urine WBC 51-100 /HPF (0-1) H Urine Squamous Epithelial Cells FEW /HPF (0-2) Urine Bacteria MANY /HPF (None Seen) Whole Blood Glucose 347 MG/DL (70-110) H Labs Reviewed?: Yes CT Scan Comment: CT ABDOMEN AND PELVIS WITHOUT CONTRAST THE LIVER SPLEEN AND PANCREAS AND RIGHT KIDNEY ARE NORMAL WITH THE EXCEPTION OF A MALROTATED RIGHT KIDNEY, NONOBSTRUCTIVE MICRO NEPHROLITHIASIS NOTED LEFT KIDNEY, PROBABLE BILATERAL ADRENAL ADENOMA PRESENT MEASURING UP TO 2.2 CM ON THE LEFT, STATUS POST CHOLECYSTECTOMY, SMALL AND LARGE BOWEL AND THE APPENDIX ARE NORMAL, ED Course ED Course Orders Procedure Category Date Status Time Cbc With Differential LAB 10/13/24 Complete 03:59 Urinalysis Profile LAB 10/13/24 Complete 03:59 Morphine 4mg Syg PHA 10/13/24 Complete (Morphine 4mg Syg) 04:00 Ondansetron 4mg Inj PHA 10/13/24 Complete (Zofran 4mg Inj) 04:00 Famotidine 20mg Vial PHA 10/13/24 Complete (Pepcid 20mg Vial) 04:00 Lipase LAB 10/13/24 Complete 03:59 Basic Metabolic Panel LAB 10/13/24 Complete 03:59 Insulin Regular, PHA 10/13/24 Complete Human 3ml (Humulin R 06:00 Ct Abdomen/Pelvis W/O CT 10/13/24 Taken Contrast 05:44 Culture Urine TRAN 10/13/24 In Process 05:53 Ketorolac PHA 10/13/24 Complete Tromethamine 15mg/Ml 08:30 Nystatin 15 Gm Powder PHA 10/13/24 Complete (Nystop 15 Gm Powd 08:30 Current Medications Medications (Trade) Dose Ordered Sig/Zach Route PRN Reason Start Time Stop Time Status Last Admin Dose Admin Famotidine (Pepcid 20mg Vial) 20 mg ONCE ONCE IV 10/13/24 04:00 10/13/24 04:03 DC 10/13/24 04:54 Insulin Human Regular (humuLIN R 100 UNIT/ML 3ML) 12 unit ONCE ONCE SQ 10/13/24 06:00 10/13/24 06:01 DC 10/13/24 05:51 Ketorolac Tromethamine (toRADol) 15 mg ONCE ONCE IV 10/13/24 08:30 10/13/24 08:31 DC 10/13/24 08:09 Morphine Sulfate (morPHINE 4MG SYG) 4 mg ONCE ONCE IVP 10/13/24 04:00 10/13/24 04:03 DC 10/13/24 04:55 Nystatin (NystOP 15 GM POWDER) 1 APPLICATION ONCE ONCE TP 10/13/24 08:30 10/13/24 08:31 DC Ondansetron HCl (zoFRAN 4MG INJ) 4 mg ONCE ONCE IVP 10/13/24 04:00 10/13/24 04:03 DC 10/13/24 04:54 Vital Signs Date Time Temp Pulse Resp B/P (MAP) Pulse Ox O2 Delivery O2 Flow Rate FiO2 10/13/24 08:13 98.1 82 18 131/80 98 Room Air* 0 21 10/13/24 05:55 70 17 118/76 95 Room Air* 0 21 10/13/24 04:48 98.4 77 18 125/72 94 Room Air* 0 21 10/13/24 03:44 98.2 87 16 119/55 94 Room Air 0 We will perform diagnostic labs, advanced imaging and administer medications according to the patient's complaint. Once the results are available, will review and personally interpreted the labs to rule out any acute life- threatening emergency the trach require immediate intervention and treatment. I will then re-evaluate the patient after treatment and diagnostic exams have return to determine whether the patient requires any further testing, can safely be discharged home or need further admission to hospital for additional t reatment and evaluation. Medical Decision Making MDM MDM: DIFFERENTIAL DIAGNOSIS: ABDOMINAL PAIN, HYPERGLYCEMIA, GASTRITIS, GASTROENTERITIS, APPENDICITIS PATIENT IS A 54-YEAR-OLD FEMALE COMING IN TO BE EVALUATED FOR ABDOMINAL PAIN. LABORATORY WORKUP POSITIVE FOR ELEVATED GLUCOSE. CT DID NOT DISCLOSE ACUTE FINDINGS. WILL BE DISCHARGED STABLE CONDITION PAIN-FREE Problem List Problem List: (1) Abdominal pain (2) Uncontrolled diabetes mellitus with hyperglycemia DX & DISP Disposition: Discharge Departure Impression: Primary Impression: Abdominal pain Additional Impression: Uncontrolled diabetes mellitus with hyperglycemia Condition: Stable Additional Instructions: Patient and the caregiver have been informed of all the diagnostic tests and the imaging conducted during the today's visit to the emergency room and has verbalized understanding of the results I have personally reviewed and interpreted all diagnostic exams performed here in the ER today as well as the vital signs documented by the nursing staff. The patient is now being discharged to home and should follow up with the primary care physician or the specialist as directed by the ER staff. Follow-up with primary care provider in 1 to 2 days. Take medications as directed here in the emergency room. Okay to continue home medications unless otherwise discussed during your visit in the emergency room today. Return to your nearest emergency room if symptoms worsen or if there is no improvement. Call 911 if you need immediate assistance. Take Tylenol or Motrin over-the- counter as needed and if no contraindications are present. Increase oral hydration. A wound culture or urine culture was ordered here in the emergency room department please follow-up with primary care provider and advise them to get repeat ports from our facility. If you had any [place] wrap/splints that were applied here, please do not remove them until you see your primary care or specialty. Referrals: JAKE CASON MD (PCP) Time of Disposition: 09:06 ORLIN REDMAN MD Oct 13, 2024 03:57 SANGEETA GUILLAUME MD Oct 13, 2024 09:07
--- NOTE | 2024-10-13 04:43 | NUR ---
PT CARE ASSUMED AT THIS TIME
[2024-10-13] MEDS: ondanSETRON 4MG INJ IVP ONE (04:54)
[2024-10-13] MEDS: FAMOTIDINE 20MG VIAL IV ONE (04:54)
[2024-10-13] MEDS: morPHINE 4 MG SYG IVP ONE (04:55)
[2024-10-13 05:00] LABS: BASOPHILS # (AUTO) 0.02 K/uL (0.00-0.20); BASOPHILS % (AUTO) 0.2 % (0.0-5.0); EOSINOPHILS # (AUTO) 0.17 K/uL (0.00-0.70); IMMATURE GRANULOCYTE ABSOLUTE 0.03 K/uL (0-1); LYMPHOCYTES # (AUTO) 2.4 K/uL (1.0-4.8); LYMPHOCYTES % (AUTO) 28.3 % (21.0-51.0); MEAN CORPUSCULAR HEMOGLOBIN 30.4 pg (27.0-33.0); MEAN CORPUSCULAR HGB CONC 34.2 g/dL (32.0-36.0); MEAN CORPUSCULAR VOLUME 88.8 fL (79-99); MONOCYTES # (AUTO) 0.5 K/uL (0.1-1.0); MONOCYTES % (AUTO) 5.7 % (3.0-13.0); NEUTROPHILS # (AUTO) 5.3 K/uL (1.8-7.7); NEUTROPHILS % (AUTO) 63.4 % (40.0-77.0); PLATELET COUNT (AUTO) 248 K/uL (130-400); RED BLOOD CELL COUNT(AUTO) 5.07 MIL/uL (4.00-5.50); WHITE BLOOD COUNT (AUTO) 8.3 K/uL (4.8-10.8)
[2024-10-13 05:31] LABS: CREATININE 0.5 mg/dL (0.5-1.0)
[2024-10-13 05:49] LABS: APPEARANCE,URINE CLOUDY (CLEAR); BILIRUBIN,URINE NEGATIVE (NEGATIVE); COLOR,URINE YELLOW (YELLOW); GLUCOSE, URINE (UA) >=1000 mg/dL (NEGATIVE); KETONES,URINE 40 mg/dL (NEGATIVE); LEUKOCYTE ESTERASE ,URINE 500 Leu/uL (NEGATIVE); NITRATE,URINE NEGATIVE (NEGATIVE); OCCULT BLOOD,URINE MODERATE (NEGATIVE); PH,URINE 5.5 (5.0-8.0); PROTEIN,URINE 10 mg/dL (NEGATIVE); UROBILINOGEN,URINE 0.2 mg/dL (0.2-1.0)
[2024-10-13] MEDS: INSULIN humuLIN R 100 UNIT/ML 3ML SQ ONE (05:51)
[2024-10-13 05:53] LABS: ADD UA MICROSCOPIC YES
[2024-10-13 05:57] LABS: BACTERIA,URINE MANY /HPF (None Seen); MUCUS,URINE RARE LPF (None Seen); RBC,URINE 51-100 /HPF (0-1); SQUAMOUS EPITHELIAL CELL,UR FEW /HPF (0-2); WBC,URINE 51-100 /HPF (0-1)
--- NOTE | 2024-10-13 06:04 | NUR ---
PT LEFT TO CT AT THIS TIME. PT SHOWS NO SIGNS OF DISTRESS.
--- NOTE | 2024-10-13 06:25 | NUR ---
PT BACK FROM CT AT THIS TIME
--- NOTE | 2024-10-13 07:09 | NUR ---
REPORT GIVEN TO CHRISTOPHER GRAHAM AT THIS TIME
[2024-10-13] MEDS: ketOROlac 15MG/ML VIAL (15MG/ML) IV ONE (08:09)
[2024-10-13 08:13] VITALS: BP 131/80; PULSE 82; RESP 18; TEMP 98.1; O2SAT 98
[2024-10-13] MEDS ORDERED: CEPH500B PO (09:47)
[2024-10-13] MEDS: NYSTatin 15 GM POWDER TP ONE ×2 (09:56→09:57)
[2024-10-13] MEDS: cePHALexin 500 MG CAPSULE PO ONE (10:05)
--- NOTE | 2024-10-13 10:10 | HMCIMG ---
CT ABDOMEN/PELVIS W/O CONTRAST HISTORY: Diffuse abdominal pain COMPARISON: 06/10/2024 TECHNIQUE: Multiple sequential axial images of the abdomen and pelvis were obtained from the dome of the diaphragm through symphysis pubis. Patient was not given contrast through intravenous route. Oral contrast was not given. FINDINGS: No pleural effusion is seen bilaterally. There is no evidence of parenchymal disease or pulmonary nodule of the visualized lower lungs. Degenerative changes of the thoracolumbar spine are present. The heart is not enlarged. Liver measured 22 cm. Postcholecystectomy changes are seen. There is right adrenal adenoma measuring 14 mm. There is left adrenal adenoma measuring 11 mm. The liver, spleen, pancreas are unremarkable. There is no evidence of hydronephrosis bilaterally. Small bilateral renal pelvic stones with the largest measuring 3 mm. Fecal material is seen in the colon. There are normal size retroperitoneal and mesenteric lymph nodes. No ascites is seen. No CT evidence of acute appendicitis seen. Pelvic sidewalls are symmetric bilaterally. Bladder is moderately distended. IMPRESSION: 1. Bilateral adrenal adenoma. Bilateral renal pelvic stones without hydronephrosis. No ascites. CT was performed with one or more following dose reduction techniques: automated exposure control, adjustment of the mA and kv according to patient's size, or use of a iterative reconstruction technique.
== END 2024-10-13 10:13 | disposition home or self-care (01) ==
LOC: EDH 03:43
DX: R10.84 Generalized abdominal pain (principal); E11.65 Type 2 diabetes mellitus with hyperglycemia; E78.00 Pure hypercholesterolemia, unspecified; F17.210 Nicotine dependence, cigarettes, uncomplicated; I10 Essential (primary) hypertension; F31.9 Bipolar disorder, unspecified; Z79.1 Long term (current) use of non-steroidal anti-inflammatories (NSAID); Z79.82 Long term (current) use of aspirin; Z79.899 Other long term (current) drug therapy; Z98.890 Other specified postprocedural states
CPT/HCPCS: 99285; 74176; 96374; 96375; 80048; 83690; 85025; 87086; 82948; 81001; 36415; 96372; J1815; J1885; J3490; J2405; J2270

== ENCOUNTER 2024-10-16 23:33 | Inpatient (IN) | payer MEDICAID ==
[~2024-10-16] VITALS: Ht 157.5 cm; Wt 136.1 kg
[~2024-10-16 23:33] MED LIST changes: +CEPH500B PO
--- NOTE | 2024-10-16 23:42 | ERN ---
ED Note History of Present Illness Stated Complaint: NAUSEA/VOMITING/ DIARRHEA Chief Complaint: Nausea,Vomiting,Diarrhea Time Seen by MD: 23:39 Dictation: This is a 54-year-old extremely obese female who came in via EMS for abdominal pain She complains of nausea vomitings diarrhea denies hematemesis or melena. Her last bowel movement was earlier today. She was seen in the emergency room on 10/13/2024 for same complaints due to extreme obesity suboptimal exam a CT scan of the abdomen and pelvis was done. This showed small nonobstructing renal pelvic stones but no bowel abnormalities. No other family members are sick she denied any fevers chills or rigors. Temperature 98 pulse 83 respirations 16 blood pressure 142/75 with a pulse oximetry of 95% on room air Her chronic medical problems include diabetes mellitus type 2, hypertension, hypercholesterolemia and bipolar disorder Allergies: Coded Allergies: No Known Drug Allergies (Verified Allergy, Severe, 01/05/16) Home Meds Active Scripts Cephalexin Monohydrate (Keflex) 500 Mg Cap, 1 CAP PO BID for 10 Days, #20 CAP 0 Refills Prov:SANGEETA GUILLAUME MD 10/13/24 Permethrin (Permethrin) 5 % Cream..g., 1 APPL TP ONCE for 1 Day, #60 GM 0 Refills massage into skin from head to soles of feet one time, leave on for 8-14 hours then remove by thorough washing Prov:NIDIA GONZALES [facility] 08/14/24 Nitrofurantoin Monohyd/M-Cryst (Macrobid 100 mg Capsule) 100 Mg Capsule, 1 CAP PO BID for 5 Days, #10 CAP 0 Refills Prov:NIDIA GONZALES [employer] 08/14/24 Diclofenac Sodium (Voltaren Arthritis Pain) 1 % Gel..gram., 20 GM TP BID for 10 Days, #1 TUBE Prov:SANGEETA GUILLAUME MD 07/29/24 Cefpodoxime Proxetil (Cefpodoxime Proxetil) 100 Mg Tablet, 1 TAB PO BID for 7 Days, #14 TAB 0 Refills Prov:MARIA G NOLAN DO 06/10/24 Meloxicam (Meloxicam) 15 Mg Tablet, 15 MG PO DAILY PRN for PAIN for 10 Days, #10 TAB Prov:MARIA G NOLAN DO 06/10/24 Reported Medications Calcium Carb/Magnesium Hydrox (Rolaids Chewable Tablet) 1 Each Tab.chew, 1 TAB PO TID PRN for INDIGESTION, TAB.CHEW 01/05/16 Naproxen (Naproxen) 375 Mg Tablet, 375 MG PO BID 01/05/16 Albuterol Sulfate (Proventil Hfa) 6.7 Gm Hfa.aer.ad, 2 PUFF IH Q6H 01/05/16 Quetiapine Fumarate (Quetiapine Fumarate) 300 Mg Tablet, 300 MG PO HS 01/05/16 Glipizide (Glipizide) 5 Mg Tablet, 5 MG PO ACBKFST 01/05/16 Cetirizine HCl (Cetirizine HCl) 10 Mg Tablet, 10 MG PO DAILY 01/05/16 Atorvastatin Calcium (Atorvastatin Calcium) 40 Mg Tablet, 40 MG PO DAILY 01/05/16 Metformin HCl (Metformin HCl) 500 Mg Tablet, 500 MG PO BIDMEALS 01/05/16 Bupropion HCl (Bupropion Xl) 150 Mg Tab.er.24h, 150 MG PO DAILY 01/05/16 Ibuprofen (Ibuprofen) 600 Mg Tablet, 600 MG PO Q6H PRN for PAIN 01/05/16 Fenofibrate Nanocrystallized (Fenofibrate) 145 Mg Tablet, 145 MG PO DAILY, TAB 01/05/16 Gabapentin (Gabapentin) 300 Mg Capsule, 300 MG PO BID 01/05/16 Aspirin (Aspirin EC) 81 Mg Tablet.dr, 81 MG PO DAILY 01/05/16 Losartan Potassium (Losartan Potassium) 50 Mg Tablet, 50 MG PO DAILY 01/05/16 Past Medical History Past Medical History: Bipolar, Diabetes-Type II, High Cholesterol, Hypertension Additional Past Medical Hx: INSOMNIA Surgical History: Other Surgical History Other: HERNIA REPAIR Family History: Negative Social History: Smokers History: Not Applicable RN Note Reviewed/Agreed w/PFSH: Yes Review of System Dictation Constitutional: Negative for fever,chills, and weight loss Eyes: Negative for injury, pain,redness, and discharge ENT: Negative for injury,pain or swelling Cardiovascular: Negative for chest pain, palpitations, and edema Respiratory: Negative for shortness of breath, cough, and wheezing, Abdomen/GI: Positive for abdominal pain, nausea, vomiting, diarrhea, denies constipation Back: Negative for injury and pain : Negative for injury, bleeding and discharge MS/Extremity: Negative for injury and deformity Skin: Negative for rash, and discoloration Neuro: Negative for headache, weakness, numbness, tingling, and seizure Psych: Negative for suicide ideation, homicidal ideation, and hallucinations Initial Vital Sign VS Vital Signs Date Time Temp Pulse Resp B/P (MAP) Pulse Ox O2 Delivery O2 Flow Rate FiO2 10/16/24 23:34 98.1 83 16 142/75 95 Room Air 0 Physical Exam Dictation General: awake, alert, NAD elderly obese lady Head/Face: Normocephalic, atraumatic Eyes: PERRL, EOMI, vision at baseline ENT: oral cavity clear, TMs clear, no signs of infection Neck: Trachea midline, supple, no nuchal rigidity Cardiovascular: RRR, normal S1/S2, No MRGs, no JVD Respiratory: CTAB, no respiratory distress, No rales or wheezes Abdomen: Soft, obese diffusely tender, normal bowel sounds, no guarding or rebound. Skin: Warm, dry, normal turgor, no rash MS/Extremity: Pulses equal, no cyanosis, neurovascular intact, FROM Neuro: COAx4, GCS 15, strength 5/5, CN 2-12 intact, normal cerebellar exam, normal gait, Psych: Normal behavior, mood, and affect normal Extremities-trace edema without any palpable cords, Homans sign is negative Results (Laboratory/Radiology) Laboratory/Radiology Laboratory Tests Test 10/17/24 00:35 White Blood Count 6.4 K/uL (4.8-10.8) Red Blood Count 5.27 MIL/uL (4.00-5.50) Hemoglobin 15.9 g/dL (12.0-16.0) Hematocrit 47.5 % (36-48) Mean Corpuscular Volume 90.1 fL (79-99) Mean Corpuscular Hemoglobin 30.2 pg (27.0-33.0) Mean Corpuscular Hemoglobin Concent 33.5 g/dL (32.0-36.0) Red Cell Distribution Width 14.2 % (11.0-15.5) Platelet Count 197 K/uL (130-400) Mean Platelet Volume 10.5 fL (7.5-10.5) Immature Granulocyte % (Auto) 0.5 % (0-1) Neutrophils (%) (Auto) 54.9 % (40.0-77.0) Lymphocytes (%) (Auto) 32.7 % (21.0-51.0) Monocytes (%) (Auto) 10.2 % (3.0-13.0) Eosinophils (%) (Auto) 1.4 % (0.0-8.0) Basophils (%) (Auto) 0.3 % (0.0-5.0) Neutrophils # (Auto) 3.5 K/uL (1.8-7.7) Lymphocytes # (Auto) 2.1 K/uL (1.0-4.8) Monocytes # (Auto) 0.7 K/uL (0.1-1.0) Eosinophils # (Auto) 0.09 K/uL (0.00-0.70) Basophils # (Auto) 0.02 K/uL (0.00-0.20) Absolute Immature Granulocyte (auto 0.03 K/uL (0-1) Nucleated Red Blood Cells 0.0 % (0.0-0.19) Sodium Level 133 mmol/L (136-145) L Potassium Level 4.4 mmol/L (3.5-5.1) Chloride Level 99 mmol/L (101-111) L Carbon Dioxide Level 25 mmol/L (21-32) Blood Urea Nitrogen 9 mg/dL (7-18) Creatinine 0.5 mg/dL (0.5-1.0) Glomerular Filtration Rate Calc 110 mL/min (>90) Random Glucose 309 mg/dL (70-105) H Total Calcium 8.4 mg/dL (8.5-10.1) L Labs Reviewed?: Yes CT Scan Comment: PATIENT: CHANELL FAIR MR#: [id number] : 1970 SEX: F AGE: 54 LOCATION: [facility] ORDER 3 STATUS: REG REPORT#: [id number] SERVICE 3 REASON: diffuse abdominal pain ORDERING PHYSICIAN: ORLIN REDMAN MD PROCEDURE: ABD PEL WO - CT ABDOMEN/PELVIS W/O CONTRAST CT ABDOMEN/PELVIS W/O CONTRAST HISTORY: Diffuse abdominal pain COMPARISON: 06/10/2024 TECHNIQUE: Multiple sequential axial images of the abdomen and pelvis were obtained from the dome of the diaphragm through symphysis pubis. Patient was not given contrast through intravenous route. Oral contrast was not given. FINDINGS: No pleural effusion is seen bilaterally. There is no evidence of parenchymal disease or pulmonary nodule of the visualized lower lungs. Degenerative changes of the thoracolumbar spine are present. The heart is not enlarged. Liver measured 22 cm. Postcholecystectomy changes are seen. There is right adrenal adenoma measuring 14 mm. There is left adrenal adenoma measuring 11 mm. The liver, spleen, pancreas are unremarkable. There is no evidence of hydronephrosis bilaterally. Small bilateral renal pelvic stones with the largest measuring 3 mm. Fecal material is seen in the colon. There are normal size retroperitoneal and mesenteric lymph nodes. No ascites is seen. No CT evidence of acute appendicitis seen. Pelvic sidewalls are symmetric bilaterally. Bladder is moderately distended. IMPRESSION: 1. Bilateral adrenal adenoma. Bilateral renal pelvic stones without hydronephrosis. No ascites. CT was performed with one or more following dose reduction techniques: automated exposure control, adjustment of the mA and kv according to patient's size, or use of a iterative reconstruction technique. DICTATED BY: VIRGEN RODRIGUEZ MD DATE: 10/13/24 0817 ELECTRONICALLY SIGNED BY: VIRGEN RODRIGUEZ MD DATE: 10/13/24 1010 ED Course ED Course Orders Procedure Category Date Status Time Ondansetron 4mg Inj PHA 10/17/24 Complete (Zofran 4mg Inj) 00:00 Ketorolac PHA 10/17/24 Complete Tromethamine 30mg/Ml 00:00 Cbc With Differential LAB 10/17/24 Complete 00:37 Basic Metabolic Panel LAB 10/17/24 Complete 00:37 Edm Admit Bridge Order ADM 10/17/24 Transmitted 01:09 Admit Orders ADM 10/17/24 Transmitted 01:09 Ceftriaxone 1g Vial PHA 10/17/24 Transmitted (Rocephine 1g Inj) 01:30 Current Medications Medications (Trade) Dose Ordered Sig/Zach Route PRN Reason Start Time Stop Time Status Last Admin Dose Admin Ketorolac Tromethamine (toRADol) 30 mg ONCE ONCE IVP 10/17/24 00:00 10/17/24 00:01 DC 10/17/24 00:39 Ondansetron HCl (zoFRAN 4MG INJ) 4 mg ONCE ONCE IVP 10/17/24 00:00 10/17/24 00:01 DC 10/17/24 00:39 Vital Signs Date Time Temp Pulse Resp B/P (MAP) Pulse Ox O2 Delivery O2 Flow Rate FiO2 10/16/24 23:34 98.1 83 16 142/75 95 Room Air 0 We will administer medications according to the patient's complaint. Once the results are available, will review and personally interpreted the labs to rule out any acute life-threatening emergency the trach require immediate intervention and treatment. I will then re-evaluate the patient after treatment and diagnostic exams have return to determine whether the patient requires any further testing, can safely be discharged home or need further admission to hospital for additional treatment and evaluation. With ongoing symptoms, UTI, recommended that she be admitted to the hospital for a GI evaluation. She is agreeable 1:15 a.m.-patient accepted by [facility]-level provider for hospitalist group to be admitted to Dr. Olson Medical Decision Making MDM MDM: Differential diagnosis: Ongoing abdominal pain diffusely, nausea vomitings and diarrhea--diabetic gastroparesis, gastritis, medication related side effects Rationale: Tests considered and ordered secondary to shared decision making include: labs, ECG and radiology Previous outside records reviewed: Old ER visits. Risk of complication and/or morbidity or mortality of patient management: None Medications-Per medication reconciliation Need for hospitalization: Patient does meet criteria for hospitalization. Need for emergency major/minor surgery: No There are no social concerns with this patient. Prescription drug management Prescriptions will include symptomatic care Patient's prior external medical records from other ER visits were reviewed by me as indicated. Prior testing and results from previous visits were reviewed. Prior tests were taken into account with medical decision making and resource utilization, independent historian/historians were used to obtain complete medical history. I independently interpreted the test that were performed, results were reviewed by me and considered findings on radiology if ordered. Medical management and examination interpretation discussions were had by me with other qualified healthcare professionals as indicated for the patient's care. Problem List Problem List: (1) Abdominal pain (2) Uncontrolled diabetes mellitus with hyperglycemia (3) UTI (urinary tract infection) (4) Nausea vomiting and diarrhea DX & DISP Disposition: Inpatient Decision to Admit Time: 00:15 Departure Impression: Primary Impression: Abdominal pain Additional Impressions: Uncontrolled diabetes mellitus with hyperglycemia, UTI (urinary tract infection), Nausea vomiting and diarrhea Condition: Stable Additional Instructions: Patient and the caregiver have been informed of all the diagnostic tests and the imaging conducted during the today's visit to the emergency room and has verbalized understanding of the results I have personally reviewed and interpreted all diagnostic exams performed here in the ER today as well as the vital signs documented by the nursing staff. The patient is now being discharged to home and should follow up with the primary care physician or the specialist as directed by the ER staff. Follow-up with primary care provider in 1 to 2 days. Take medications as directed here in the emergency room. Okay to continue home medications unless otherwise discussed during your visit in the emergency room today. Return to your nearest emergency room if symptoms worsen or if there is no improvement. Call 911 if you need immediate assistance. Take Tylenol or Motrin [id number] nter as needed and if no contraindications are present. Increase oral hydration. A wound culture or urine culture was ordered here in the emergency room department please follow-up with primary care provider and advise them to get repeat ports from our facility. If you had any [place] wrap/splints that were applied here, please do not remove them until you see your primary care or s ty. Referrals: JAKE CASON MD (PCP) ORLIN REDMAN MD Oct 16, 2024 23:42
[2024-10-17] VITALS (13 sets, daily range): BP systolic 114–157; BP diastolic 54–82; PULSE 66–92; RESP 17–22; TEMP 97.6–98.3; O2SAT 93–97
[2024-10-17] MEDS: ketOROlac 30MG VIAL (30MG/ML) IVP ONE (00:39)
[2024-10-17] MEDS: ondanSETRON 4MG INJ IVP ONE (00:39)
[2024-10-17 00:43] LABS: BASOPHILS # (AUTO) 0.02 K/uL (0.00-0.20); BASOPHILS % (AUTO) 0.3 % (0.0-5.0); EOSINOPHILS # (AUTO) 0.09 K/uL (0.00-0.70); EOSINOPHILS % (AUTO) 1.4 % (0.0-8.0); HEMATOCRIT 47.5 % (36-48); IMMATURE GRANULOCYTE ABSOLUTE 0.03 K/uL (0-1); LYMPHOCYTES # (AUTO) 2.1 K/uL (1.0-4.8); LYMPHOCYTES % (AUTO) 32.7 % (21.0-51.0); MEAN CORPUSCULAR HEMOGLOBIN 30.2 pg (27.0-33.0); MEAN CORPUSCULAR HGB CONC 33.5 g/dL (32.0-36.0); MEAN CORPUSCULAR VOLUME 90.1 fL (79-99); MONOCYTES # (AUTO) 0.7 K/uL (0.1-1.0); MONOCYTES % (AUTO) 10.2 % (3.0-13.0); NEUTROPHILS # (AUTO) 3.5 K/uL (1.8-7.7); NEUTROPHILS % (AUTO) 54.9 % (40.0-77.0); PLATELET COUNT (AUTO) 197 K/uL (130-400); RED BLOOD CELL COUNT(AUTO) 5.27 MIL/uL (4.00-5.50); RED CELL DISTRIBUTION WIDTH 14.2 % (11.0-15.5); WHITE BLOOD COUNT (AUTO) 6.4 K/uL (4.8-10.8)
[2024-10-17 01:04] LABS: CREATININE 0.5 mg/dL (0.5-1.0); POTASSIUM 4.4 mmol/L (3.5-5.1)
[2024-10-17] MEDS: cefTRIAXone 1G VIAL IVPB ONE (02:32)
[2024-10-17] MEDS: 0.9%NACL 1000ML 1,000 ML IV SCH (02:32)
--- NOTE | 2024-10-17 02:51 | HP ---
[facility] HISTORY [facility] PHYSICAL Date of Service: Oct 17, 2024 Time of Service: 02:09 PCP: Kurt Woods HISTORY OF PRESENT ILLNESS: This is 54 years old female with past medical history of diabetes, hypertension, bipolar disorder and hyperlipidemia who was brought by EMS to the ED for complaints of abdominal pain associated with nausea,vomiting and diarrhea.which started yesterday.Patient also reports she has dark vomitus and her stool is very watery and she started having subjective fever and chills today.Patient al so reports she is unable to keep anything down so she decided to come to the ED .Patent reports she was here last 10/13 2024 for complaints of abdominal; painand was found she has UTI and was sent home on Antibiotic. Seen and examined patient in the ER awake,alert and coherent.Patient continue to complain of abdominal pain7/10 pain level.Patient denies sore throat,cough,chest pain,palpitation and shortness of breath. Latest vital signs temperature 98.1, heart rate 76, respiration 22, blood pressure 124/41 saturation 96% on room air. Labs: CBC is normal. Sodium 133, potassium 4.4 chloride 99, glucose 309 total calcium 8.4. There was a CT abdomen and pelvis without contrast done on October 13, 2024 which revealed bilateral adrenal adenoma. Bilateral renal pelvic stones without hydronephrosis. No ascites. While in the ER patient received Rocephin 1 g IV, Toradol 30 mg IV and Zofran 4 mg IV. We will admit patient for further medical management. REVIEW OF SYSTEMS CONSTITUTIONAL: Complained of fever and chills Denies fevers, chills, or night sweats. No unintentional weight loss reported. NEUROLOGICAL: Denies headache, amaurosis fugax, motor weakness, sensory def icit, vertigo/spinning sensation, gait abnormalities, or tremors. ENT: No hearing loss, otalgia, otorrhea, rhinitis, rhinorrhea, hoarseness, or sore throat. CARDIOVASCULAR: Denies any exertional angina, dyspnea on exertion, orthopnea, paroxysmal nocturnal dyspnea, palpitations, life-threatening arrhythmias, claudication. PULMONARY: Denies any shortness of breath, cough, phlegm/sputum, hemoptysis, pleuritic chest pain. SLEEP: Denies morning headaches, daytime somnolence or napping. Denies difficulty falling asleep, staying asleep, waking from sleep. Denies knowledge of snoring. GASTROINTESTINAL: Complained of abdominal pain, nausea and vomiting and diarrhea Denies any type of dysphagia to either liquids or solids. Denies pyrosis, early satiety, constipation, or changes in stool consistency or caliber. Denies coffee-ground emesis, hematemesis, hematochezia, or melanotic stools. GENITOURINARY: Denies frequency, urgency, nocturia, hematuria or incontinence (Storage/Irritative symptoms.) Low urinary stream, straining to void, urinary intermittency or hesitancy, splitting of the voiding stream, terminal dribbling. ENDOCRINOLOGIC: Denies polyuria, polydipsia, polyphagia or heat/cold intolerances. HEMATOLOGIC: Denies thrombophilia/previous clots, or coagulopathy/bleeding disorders. ONCOLOGIC: Denies personal history of malignancy. DERMATOLOGIC: Denies rashes or pruritus. PSYCHIATRIC: Denies any suicidal or homicidal ideation. Denies hallucinations. PAST MEDICAL HISTORY: [ diabetes, hypertension, bipolar disorder and hyperlipidemia] PAST SURGICAL HISTORY: [ Umbilical hernia repair and hysterectomy ] PAST SOCIAL HISTORY: [ Patient lives alone. Patient denies alcohol tobacco and recreational drug use ] FAMILY HISTORY: [ Stroke, hypertension and diabetes ] Coded Allergies: No Known Drug Allergies (Verified Allergy, Severe, 01/05/16) PHYSICAL EXAM GENERAL APPEARANCE: The patient is awake, alert, and oriented, in no acute cardiopulmonary distress. NEUROLOGICAL: Cranial nerves II-XII grossly intact. Motor is 5/5 in bilateral upper and lower extremities proximal to distal. No sensory deficits. HEENT: Face is symmetric. Pupils are equal and reactive. Extraocular movements are intact. NECK: Supple. No JVD. No thyromegaly. No submental, submandibular, pre- /postauricular, occipital or supraclavicular lymphadenopathy. CHEST: Normal chest expansion. No Telemetry. LUNGS: Absence of any rales, rhonchi or any wheezing. CARDIOVASCULAR: Regular. S1 and S2 normal. No appreciable rubs, murmurs or gallops. ABDOMEN: Abdominal tenderness around mid abdomen on palpation Soft and nondistended. There is no rebound, voluntary guarding, or rigidity. : Deferred. No Smith. EXTREMITIES: Non-edematous and not cyanotic. No clubbing. Good capillary refill. SKIN: No skin breakdown. Vital Sign (Last 24 Hours) 2/13/25 23:55 Temp 98.1 Pulse 76 Resp 22 B/P (MAP) 124/41 Pulse Ox 96 O2 Delivery Room Air* O2 Flow Rate 0 FiO2 21 LABS: Laboratory: Test 10/17/24 00:35 Range/Units White Blood Count 6.4 4.8-10.8 K/uL Red Blood Count 5.27 4.00-5.50 MIL/uL Hemoglobin 15.9 12.0-16.0 g/dL Hematocrit 47.5 36-48 % Mean Corpuscular Volume 90.1 79-99 fL Mean Corpuscular Hemoglobin 30.2 27.0-33.0 pg Mean Corpuscular Hemoglobin Concent 33.5 32.0-36.0 g/dL Red Cell Distribution Width 14.2 11.0-15.5 % Platelet Count 197 130-400 K/uL Mean Platelet Volume 10.5 7.5-10.5 fL Immature Granulocyte % (Auto) 0.5 0-1 % Neutrophils (%) (Auto) 54.9 40.0-77.0 % Lymphocytes (%) (Auto) 32.7 21.0-51.0 % Monocytes (%) (Auto) 10.2 3.0-13.0 % Eosinophils (%) (Auto) 1.4 0.0-8.0 % Basophils (%) (Auto) 0.3 0.0-5.0 % Neutrophils # (Auto) 3.5 1.8-7.7 K/uL Lymphocytes # (Auto) 2.1 1.0-4.8 K/uL Monocytes # (Auto) 0.7 0.1-1.0 K/uL Eosinophils # (Auto) 0.09 0.00-0.70 K/uL Basophils # (Auto) 0.02 0.00-0.20 K/uL Absolute Immature Granulocyte (auto 0.03 0-1 K/uL Nucleated Red Blood Cells 0.0 0.0-0.19 % Sodium Level 133 L 136-145 mmol/L Potassium Level 4.4 3.5-5.1 mmol/L Chloride Level 99 L 101-111 mmol/L Carbon Dioxide Level 25 21-32 mmol/L Blood Urea Nitrogen 9 7-18 mg/dL Creatinine 0.5 0.5-1.0 mg/dL Glomerular Filtration Rate Calc 110 >90 mL/min Random Glucose 309 H 70-105 mg/dL Total Calcium 8.4 L 8.5-10.1 mg/dL DIAGNOSTICS / RADIOLOGY: [ ] ASSESSMENT: Hyperglycemia secondary to uncontrolled diabetesPOA Acute urinary tract infection POA Suspected Diabetic gastroparesis POA Hyponatremia POA Morbid obesity POA Hypertension POA Hyperlipidemia POA PLAN: We will admit patient in medical surgical floor We will keep patient nothing by mouth We will start NS @ 75 ml / hr x1 bag and re evaluate We will start patient on Rocephin 1 g IV b.i.d. for empiric coverage We will start on Protonix 40 mg IV daily for GI prophylaxis We will replace electrolytes as needed per protocol We will start on insulin sliding scale AC & HS with hypoglycemia protocol We will add prn medication for fever,pain,cough and nausea We will reconcile home meds once medlist available We will seek gastroenterology consultation We will request stool panel and fecal occult blood We will request labs in am Further orders to follow depending on above results Case discussed with attending physician and came up with above treatment and plan of care. ADVANCED CARE PLANNING 1. Which of the following were discussed? Hospice Care - No Therapeutic options - Yes Advance Directives - No Other discussions - 2. Discussed with who? Patient 3. Voluntary nature of this service was explained to the patient? Yes 4. Amount of time spent - ___22____ 5. Reviewed by Physician? (if this service was performed by NPP) Yes Patient seen and examined by me. Agree with note by [employer] VAULT CLERK SEE ADDITIONAL ORDERS PER CHART DISCUSSED WITH NURSING STAFF MILAD GARCIA Oct 17, 2024 02:51
[2024-10-17] MEDS ORDERED: PoTASSium chloRIDE 20MEQ/100ML 100 ML IV PRN ×2 (03:00→22:30)
[2024-10-17] MEDS ORDERED: GLUCAGON 1MG KIT 1 MG ML IM PRN (03:00)
[2024-10-17] MEDS ORDERED: MAGNESIUM 2GM PREMIX 50ML 50 ML IV PRN ×2 (03:00→15:00)
[2024-10-17] MEDS ORDERED: DEXTROSE 50%-WATER 50 ML DISP.SYRIN IV PRN (03:00)
[2024-10-17] MEDS ORDERED: METF750T46 PO (03:50)
[2024-10-17] MEDS ORDERED: ESCI20TA38 PO (03:50)
[2024-10-17] MEDS ORDERED: ATOR10TA69 PO (03:50)
[2024-10-17] MEDS ORDERED: TRIA1CAP88 PO (03:50)
[2024-10-17] MEDS ORDERED: TRAZ-185 PO (03:50)
[2024-10-17] MEDS ORDERED: QUET400T13 PO (03:50)
[2024-10-17] MEDS ORDERED: GLIM4TAB36 PO (03:50)
[2024-10-17] MEDS ORDERED: PIOG45TA64 PO (03:50)
--- NOTE | 2024-10-17 03:57 | NUR ---
REPORT GIVEN TO VANESSA GRAHAM
[2024-10-17] MEDS: ketOROlac 15MG/ML VIAL (15MG/ML) IV ONE (04:15)
[2024-10-17] MEDS: INSULIN humuLIN R 100 UNIT/ML 3ML SQ SCH ×3 (04:16→23:47)
--- NOTE | 2024-10-17 04:30 | NUR ---
NEW ADMISSION ADMITTED A 54 YR OLD FEMALE FOR UNCONTROLLED DM AND ABDOMINAL PAIN. ALERT AND ORIENTED X 3, LIVES BY HERSELF, STATED THAT SHE GETS PROVIDED SERVICES 3 HRS PER DAY TO HELP HER WITH BATHS, HOUSE CLEANING AND COOKING. ALSO STATED THAT SHE HASN'T TAKEN HER MEDS FOR 2 MONTHS NOW. PT WITH BIPOLAR DISORDER. SOME ANXIETY UPON ADMISSION. REINFORCED INSTRUCTIONS ON THE NEED TO COLLECT STOOLS FOR CULTURE, CDIFF PLUS PCR, VERBALIZED UNDERSTANDING. REINFORCED NPO STATUS AND PENDING CONSULT WITH GI MD, DR. PEREZ FOR THE ABDOMINAL ISSUES. STARTED WITH IVF OF NS INFUSED AT 75 CC/HR PER ORDER. BLOOD SUGAR AT 279, COVERED WITH 6 UNITS OF REGULAR INSULIN. NO ABDOMINAL PAIN AT THIS TIME, NO NAUSEA AND VOMITING. VITAL SIGNS STABLE. HOME MEDS RECONCILED.
[2024-10-17 06:32] LABS: BASOPHILS # (AUTO) 0.01 K/uL (0.00-0.20); BASOPHILS % (AUTO) 0.2 % (0.0-5.0); EOSINOPHILS # (AUTO) 0.11 K/uL (0.00-0.70); EOSINOPHILS % (AUTO) 2.2 % (0.0-8.0); HEMATOCRIT 44.9 % (36-48); IMMATURE GRANULOCYTE ABSOLUTE 0.02 K/uL (0-1); LYMPHOCYTES # (AUTO) 2.2 K/uL (1.0-4.8); LYMPHOCYTES % (AUTO) 45.3 % (21.0-51.0); MEAN CORPUSCULAR HEMOGLOBIN 29.6 pg (27.0-33.0); MEAN CORPUSCULAR HGB CONC 32.7 g/dL (32.0-36.0); MEAN CORPUSCULAR VOLUME 90.3 fL (79-99); MONOCYTES # (AUTO) 0.6 K/uL (0.1-1.0); MONOCYTES % (AUTO) 11.5 % (3.0-13.0); NEUTROPHILS % (AUTO) 40.4 % (40.0-77.0); PLATELET COUNT (AUTO) 211 K/uL (130-400); RED BLOOD CELL COUNT(AUTO) 4.97 MIL/uL (4.00-5.50); RED CELL DISTRIBUTION WIDTH 14.2 % (11.0-15.5)
[2024-10-17 06:54] LABS: ALBUMIN 2.8 g/dL (3.5-5.0); BILIRUBIN,DIRECT 0.1 mg/dL (0.0-0.3); BILIRUBIN,TOTAL 0.3 mg/dL (0.2-1.0); CREATININE 0.5 mg/dL (0.5-1.0); POTASSIUM 3.6 mmol/L (3.5-5.1); THYROID STIMULATING HORMONE 2.66 uIU/mL (0.36-3.74); TOTAL PROTEIN, SERUM 6.1 g/dL (6.0-8.3)
[2024-10-17] MEDS ORDERED: INSULIN humuLIN R 100 UNIT/ML 3ML SQ SCH ×2 (07:30→21:00)
[2024-10-17 07:58] LABS: HEMOGLOBIN A1C 10.7 % (4.0-6.0)
[2024-10-17] MEDS: PANTOPrazole 40 MG/VIAL IVP SCH (08:16)
[2024-10-17] MEDS: cefTRIAXone 1G VIAL IVPB SCH (08:17)
--- NOTE | 2024-10-17 08:20 | CONS ---
GASTROENTEROLOGY CONSULTATION NOTE Date of Consultation: Oct 17, 2024 Time of Consultation: 08:20 History of Present Illness: [ ] This is a 54-year-old female who is known to services with past medical history of diabetes, hypertension, bipolar disorder, hyperlipidemia who was brought in due to abdominal pain, nausea, vomiting and diarrhea. Patient does have a history of diarrhea which she underwent colonoscopy many years ago which was negative. She is pending stool panel here. CT abdomen and pelvis with fecal material in the colon. She had a KUB today revealing mild small bowel dilation. Review of Systems: CONSTITUTIONAL: No malaise or change in sensation of wellbeing. ENMT: No rhinorrhea, otorrhea, sinus pain, ear ache. CARDIOVASCULAR: No angina, palpitations, orthopnea or paroxysmal dyspnea. RESPIRATORY: No SOB. GASTROINTESTINAL: No abdominal pain, nausea, vomiting, diarrhea, hematemesis, melena or change in the patient's habitual bowel movements consistency/number. GENITOURINARY: No dysuria, hematuria or change in bladder continence. MUSCULOSKELETAL: No new muscle pain or decrease in muscular strength. No new joint swelling, redness or tenderness. SKIN: No new rash. Past Medical History: PAST MEDICAL HISTORY: [ diabetes, hypertension, bipolar disorder and hyperlipidemia] PAST SURGICAL HISTORY: [ Umbilical hernia repair and hysterectomy ] PAST SOCIAL HISTORY: [ Patient lives alone. Patient denies alcohol tobacco and recreational drug use ] FAMILY HISTORY: [ Stroke, hypertension and diabetes ] Coded Allergies: No Known Drug Allergies (Verified Allergy, Severe, 01/05/16) Coded Allergies: No Known Drug Allergies (Verified Allergy, Severe, 01/05/16) Physical Exam: GEN: Awake, alert, oriented in person, time and place, and in no acute distress. HEENT: No sinus tenderness. Tympanic membranes were not examined. No rhinorrhea. Oral pharyngeal mucosa is pink, moist and within normal limits. Neck is supple with no cervical lymphadenopathy, thyromegaly or JVD. CHEST: Inspection, palpation and percussion of the chest were unremarkable. Lung auscultation revealed normal breath sounds bilaterally. CARDIAC: PMI is within normal limits. Heart sounds are regular. Normal S1, S2. No gallop or murmur. ABD: Soft, non-tender and not distended. No peritoneal signs on palpation. No organomegaly. Normal bowel sounds. EXT: No cyanosis or clubbing. No edema. SKIN: Intact. No rashes. JOINTS: No evidence of synovitis or acute arthritis. NEURO: Alert and oriented to name, place and person. Cranial nerve examination is unremarkable. No focal motor deficits. Normal speech. Gait is normal. Strength is normal. Vital Sign (Last 24 Hours) 10/17/24 10/17/24 05:00 08:13 Temp 98.2 Pulse 74 Resp 22 B/P (MAP) 114/61 Pulse Ox 93 O2 Delivery Room Air* O2 Flow Rate 0 FiO2 21 Intake & Output (last 24hrs) 10/16/24 10/16/24 10/17/24 15:00 23:00 07:00 Intake Total 400.0 ml Balance 400.0 ml Laboratory: [ ] Laboratory: Test 10/17/24 06:26 10/17/24 06:01 10/17/24 04:15 Range/Units White Blood Count 5.0 4.8-10.8 K/uL Red Blood Count 4.97 4.00-5.50 MIL/uL Hemoglobin 14.7 12.0-16.0 g/dL Hematocrit 44.9 36-48 % Mean Corpuscular Volume 90.3 79-99 fL Mean Corpuscular Hemoglobin 29.6 27.0-33.0 pg Mean Corpuscular Hemoglobin Concent 32.7 32.0-36.0 g/dL Red Cell Distribution Width 14.2 11.0-15.5 % Platelet Count 211 130-400 K/uL Mean Platelet Volume 10.0 7.5-10.5 fL Immature Granulocyte % (Auto) 0.4 0-1 % Neutrophils (%) (Auto) 40.4 40.0-77.0 % Lymphocytes (%) (Auto) 45.3 21.0-51.0 % Monocytes (%) (Auto) 11.5 3.0-13.0 % Eosinophils (%) (Auto) 2.2 0.0-8.0 % Basophils (%) (Auto) 0.2 0.0-5.0 % Neutrophils # (Auto) 2.0 1.8-7.7 K/uL Lymphocytes # (Auto) 2.2 1.0-4.8 K/uL Monocytes # (Auto) 0.6 0.1-1.0 K/uL Eosinophils # (Auto) 0.11 0.00-0.70 K/uL Basophils # (Auto) 0.01 0.00-0.20 K/uL Absolute Immature Granulocyte (auto 0.02 0-1 K/uL Nucleated Red Blood Cells 0.0 0.0-0.19 % Sodium Level 136 136-145 mmol/L Potassium Level 3.6 3.5-5.1 mmol/L Chloride Level 100 L 101-111 mmol/L Carbon Dioxide Level 28 21-32 mmol/L Blood Urea Nitrogen 11 7-18 mg/dL Creatinine 0.5 0.5-1.0 mg/dL Glomerular Filtration Rate Calc 110 >90 mL/min Random Glucose 275 H 70-105 mg/dL Hemoglobin A1c 10.7 H 4.0-6.0 % Estimated Average Glucose (eAG) 260 H 70-126 mg/dL Total Calcium 8.2 L 8.5-10.1 mg/dL Total Bilirubin 0.3 0.2-1.0 mg/dL Direct Bilirubin 0.1 0.0-0.3 mg/dL Aspartate Amino Transf (AST/SGOT) 21 10-37 U/L Alanine Aminotransferase (ALT/SGPT) 34 12-78 U/L Alkaline Phosphatase 93 50-136 U/L Total Protein 6.1 6.0-8.3 g/dL Albumin 2.8 L 3.5-5.0 g/dL Triglycerides Level 111 30-200 mg/dL Cholesterol Level 108 <200 mg/dL LDL Cholesterol 60 0-99 mg/dL HDL Cholesterol 38 35-85 mg/dL Thyroid Stimulating Hormone (TSH) 2.66 0.36-3.74 uIU/mL Whole Blood Glucose 297 H 70-110 MG/DL Stool Occult Blood NEGATIVE NEGATIVE Current Medications Medications (Trade) Dose Ordered Sig/Zach Route PRN Reason Start Time Stop Time Status Last Admin Dose Admin Ceftriaxone Sodium 1 gm/ Sodium Chloride 50 ml @ 100 mls/hr BID IV 10/17/24 09:00 10/17/24 02:26 DC Ceftriaxone Sodium (ROCEphine 1G INJ) 1 gm BID IVPB 10/17/24 09:00 10/27/24 08:59 10/17/24 08:17 1 GM Dextrose (D50w) 50 ml AD PRN IV HYPOGLYCEMIA PROTOCOL 10/17/24 03:00 11/16/24 02:59 Glucagon (Glucagon 1mg Kit) 1 mg AD PRN IM HYPOGLYCEMIA PROTOCOL 10/17/24 03:00 11/16/24 02:59 Insulin Human Regular (humuLIN R 100 UNIT/ML 3ML) INSULIN SLIDING SCAL... ACHS SQ 10/17/24 04:30 11/16/24 04:29 10/17/24 06:47 6 UNIT Insulin Human Regular (humuLIN R 100 UNIT/ML 3ML) INSULIN SLIDING SCAL... ACHS SQ 10/17/24 07:30 10/17/24 04:08 DC Magnesium Sulfate 50 ml @ 0 mls/hr PROTOCOL PRN IV OTHER [SEE ORDER COMMENTS] 10/17/24 03:00 11/16/24 02:59 Ondansetron HCl (zoFRAN 4MG INJ) 4 mg Q6H PRN IV NAUSEA/VOMITING 10/17/24 02:30 11/16/24 02:29 Pantoprazole Sodium (PROTonix 40MG INJ) 40 mg DAILY IVP 10/17/24 09:00 11/16/24 08:59 10/17/24 08:16 40 MG Potassium Chloride 100 ml @ 50 mls/hr AD PRN IV POTASSIUM PROTOCOL 10/17/24 03:00 11/16/24 02:59 Sodium Chloride 1,000 ml @ 75 mls/hr [id number] IV 10/17/24 02:30 11/16/24 02:29 10/17/24 02:32 75 MLS/HR Diagnostics / Radiology: [COPY/PASTE HERE IF NO REPORTS PLEASE DELETE SECTION] Assessment: Diarrhea Abdominal pain Abnormal imaging revealing small bowel dilation Plan: Patient has long-standing hx of diarrhea with negative workup Diarrhea likely related to bile-acid diarrhea Start trial of cholestyramine if diarrhea persists; however, monitor kub first due to concern for small bowel dilation Consider surgery consult Daily kub Continue GI prophylaxis Avoid NSAIDs Antireflux measures Monitor H&H and transfuse as needed Call with questions, concerns or change in clinical status Patient to follow-up at clinic post discharge Thank you for this consult FADI BECKER Oct 17, 2024 08:20
[2024-10-17] MEDS ORDERED: cefTRIAXone 1G VIAL 1 GM in 0.9%NACL 50ML 50 ML IV SCH (09:00)
--- NOTE | 2024-10-17 09:16 | NUR ---
SPOKE WITH RN, CESARIO WILL CALL WHEN PT READY FOR CT
[2024-10-17] MEDS ORDERED: IOHEXOL 350 MG/ML 100ML INFUS..BTL IV ONE (09:49)
--- NOTE | 2024-10-17 11:04 | HMCIMG ---
CT ABDOMEN/PELVIS W/WO CONTRAS HISTORY: Diarrhea COMPARISON: 10/13/2024 TECHNIQUE: Multiple sequential axial images of the abdomen and pelvis were obtained from the dome of the diaphragm through symphysis pubis. Patient was given 100 cc of Omnipaque through intravenous route. Oral contrast was not given. FINDINGS: No pleural effusion is seen bilaterally. There is no evidence of parenchymal disease or pulmonary nodule of the visualized lower lungs. Degenerative changes of the thoracolumbar spine are present. The heart is not enlarged. Liver measured 22 cm. Spleen measured 12 cm. Postcholecystectomy changes are seen. The liver, spleen, adrenal glands and pancreas are unremarkable. There is no evidence of hydronephrosis bilaterally. No evidence of renal stone is seen. Fecal material is seen in the colon. There are normal size retroperitoneal and mesenteric lymph nodes. No ascites is seen. Atherosclerotic changes are present. Pelvic sidewalls are symmetric bilaterally. Bladder is poorly distended. IMPRESSION: 1. No acute findings. CT was performed with one or more following dose reduction techniques: automated exposure control, adjustment of the mA and kv according to patient's size, or use of a iterative reconstruction technique.
--- NOTE | 2024-10-17 14:18 | NUR ---
This greeting card writer has a conversation about her recent bowel habits. According to her she had loose stools before coming to the hospital. As of Sunday she has not had a bowel movement. This greeting card writer updated Dr. Jonas [phone] of this update. Iv fluids will discntinued and the diet may be advanced as tolerated. He is also planing an starting PO Tylenol for pain, no NSAIDs.
--- NOTE | 2024-10-17 14:29 | PN ---
[facility] PROGRESS NOTE Date of Service: Oct 17, 2024 Time of Service: 14:23 SUBJECTIVE: This is 54 years old female with past medical history of diabetes, hypertension, bipolar disorder and hyperlipidemia who was brought by EMS to the ED for complaints of abdominal pain associated with nausea,vomiting and diarrhea.which started yesterday.Patient also reports she has dark vomitus and her stool is very watery and she started having subjective fever and chills today.Patient also reports she is unable to keep anything down so she decided to come to the ED .Patent reports she was here last 10/13 2024 for complaints of abdominal; painand was found she has UTI and was sent home on Antibiotic. Seen and examined patient in the ER awake,alert and coherent.Patient continue to complain of abdominal pain7/10 pain level.Patient denies sore throat,cough,chest pain,palpitation and shortness of breath. Latest vital signs temperature 98.1, heart rate 76, respiration 22, blood pressure 124/41 saturation 96% on room air. Labs: CBC is normal. Sodium 133, potassium 4.4 chloride 99, glucose 309 total calcium 8.4. There was a CT abdomen and pelvis without contrast done on October 13, 2024 which revealed bilateral adrenal adenoma. Bilateral renal pelvic stones without hydronephrosis. No ascites. While in the ER patient received Rocephin 1 g IV, Toradol 30 mg IV and Zofran 4 mg IV. We will admit patient for further medical management. 10/17/2024 The patient is a poor historian and provides an inconsistent account of symptoms. She initially reports persistent diarrhea for a few weeks but later states she sometimes does not have a bowel movement for up to 6 days before. Also endorses unintentional weight loss and poor oral intake over the past several weeks. On bedside examination the patient states that her abdominal discomfort slightly improved. But stools have early satiety nausea vomiting. On physical examination her blood pressure is 157/82 mmHg. The patient appears ill and dehydrated. And the abdominal examination has mild diffuse tenderness. Her electrolytes revealed a chloride of 100 that is slow and a glucose 2that is increased and HbA1c is 10.7 elevated stool occult blood test is negative and CT abdomen pelvis no acute findings. The patient is closely monitored and endocrinology gastroenterology consult has been placed and a nuclear emptying gastric emptying study has been ordered to evaluate for gastroparesis based on her chronic diabetes mellitus and poor management.Abdominal x-ray revealed mild small bowel dilation. REVIEW OF SYSTEMS CONSTITUTIONAL: Complained of fever and chills Denies fevers, chills, or night sweats. No unintentional weight loss reported. NEUROLOGICAL: Denies headache, amaurosis fugax, motor weakness, sensory deficit, vertigo/spinning sensation, gait abnormalities, or tremors. ENT: No hearing loss, otalgia, otorrhea, rhinitis, rhinorrhea, hoarseness, or sore throat. CARDIOVASCULAR: Denies any exertional angina, dyspnea on exertion, orthopnea, paroxysmal nocturnal dyspnea, palpitations, life-threatening arrhythmias, claudication. PULMONARY: Denies any shortness of breath, cough, phlegm/sputum, hemoptysis, pleuritic chest pain. SLEEP: Denies morning headaches, daytime somnolence or napping. Denies difficulty falling asleep, staying asleep, waking from sleep. Denies knowledge of snoring. GASTROINTESTINAL: Complained of abdominal pain, nausea and vomiting and diarrhea Denies any type of dysphagia to either liquids or solids. Denies pyrosis, early satiety, constipation, or changes in stool consistency or caliber. Denies coffee-ground emesis, hematemesis, hematochezia, or melanotic stools. GENITOURINARY: Denies frequency, urgency, nocturia, hematuria or incontinence (Storage/Irritative symptoms.) Low urinary stream, straining to void, urinary intermittency or hesitancy, splitting of the voiding stream, terminal dribbling. ENDOCRINOLOGIC: Denies polyuria, polydipsia, polyphagia or heat/cold intolerances. HEMATOLOGIC: Denies thrombophilia/previous clots, or coagulopathy/bleeding disorders. ONCOLOGIC: Denies personal history of malignancy. DERMATOLOGIC: Denies rashes or pruritus. PSYCHIATRIC: Denies any suicidal or homicidal ideation. Denies hallucinations. PHYSICAL EXAM GENERAL APPEARANCE: The patient is awake, alert, and oriented, in no acute cardiopulmonary distress. NEUROLOGICAL: Cranial nerves II-XII grossly intact. Motor is 5/5 in bilateral upper and lower extremities proximal to distal. No sensory deficits. HEENT: Face is symmetric. Pupils are equal and reactive. Extraocular movements are intact. NECK: Supple. No JVD. No thyromegaly. No submental, submandibular, pre- /postauricular, occipital or supraclavicular lymphadenopathy. CHEST: Normal chest expansion. No Telemetry. LUNGS: Absence of any rales, rhonchi or any wheezing. CARDIOVASCULAR: Regular. S1 and S2 normal. No appreciable rubs, murmurs or gallops. ABDOMEN: Abdominal tenderness around mid abdomen on palpation Soft and nondistended. There is no rebound, voluntary guarding, or rigidity. : Deferred. No Smith. EXTREMITIES: Non-edematous and not cyanotic. No clubbing. Good capillary refill. SKIN: No skin breakdown. Vital Signs (last 8hr) Date Time Temp Pulse Resp B/P (MAP) Pulse Ox O2 Delivery O2 Flow Rate FiO2 10/17/24 12:12 97.5 66 17 157/82 93 Room Air 10/17/24 08:13 98.2 74 22 114/61 93 LABS: Laboratory: Test 10/17/24 11:50 10/17/24 06:26 10/17/24 04:15 Range/Units Whole Blood Glucose 216 H 70-110 MG/DL White Blood Count 5.0 4.8-10.8 K/uL Red Blood Count 4.97 4.00-5.50 MIL/uL Hemoglobin 14.7 12.0-16.0 g/dL Hematocrit 44.9 36-48 % Mean Corpuscular Volume 90.3 79-99 fL Mean Corpuscular Hemoglobin 29.6 27.0-33.0 pg Mean Corpuscular Hemoglobin Concent 32.7 32.0-36.0 g/dL Red Cell Distribution Width 14.2 11.0-15.5 % Platelet Count 211 130-400 K/uL Mean Platelet Volume 10.0 7.5-10.5 fL Immature Granulocyte % (Auto) 0.4 0-1 % Neutrophils (%) (Auto) 40.4 40.0-77.0 % Lymphocytes (%) (Auto) 45.3 21.0-51.0 % Monocytes (%) (Auto) 11.5 3.0-13.0 % Eosinophils (%) (Auto) 2.2 0.0-8.0 % Basophils (%) (Auto) 0.2 0.0-5.0 % Neutrophils # (Auto) 2.0 1.8-7.7 K/uL Lymphocytes # (Auto) 2.2 1.0-4.8 K/uL Monocytes # (Auto) 0.6 0.1-1.0 K/uL Eosinophils # (Auto) 0.11 0.00-0.70 K/uL Basophils # (Auto) 0.01 0.00-0.20 K/uL Absolute Immature Granulocyte (auto 0.02 0-1 K/uL Nucleated Red Blood Cells 0.0 0.0-0.19 % Sodium Level 136 136-145 mmol/L Potassium Level 3.6 3.5-5.1 mmol/L Chloride Level 100 L 101-111 mmol/L Carbon Dioxide Level 28 21-32 mmol/L Blood Urea Nitrogen 11 7-18 mg/dL Creatinine 0.5 0.5-1.0 mg/dL Glomerular Filtration Rate Calc 110 >90 mL/min Random Glucose 275 H 70-105 mg/dL Hemoglobin A1c 10.7 H 4.0-6.0 % Estimated Average Glucose (eAG) 260 H 70-126 mg/dL Total Calcium 8.2 L 8.5-10.1 mg/dL Total Bilirubin 0.3 0.2-1.0 mg/dL Direct Bilirubin 0.1 0.0-0.3 mg/dL Aspartate Amino Transf (AST/SGOT) 21 10-37 U/L Alanine Aminotransferase (ALT/SGPT) 34 12-78 U/L Alkaline Phosphatase 93 50-136 U/L Total Protein 6.1 6.0-8.3 g/dL Albumin 2.8 L 3.5-5.0 g/dL Triglycerides Level 111 30-200 mg/dL Cholesterol Level 108 <200 mg/dL LDL Cholesterol 60 0-99 mg/dL HDL Cholesterol 38 35-85 mg/dL Thyroid Stimulating Hormone (TSH) 2.66 0.36-3.74 uIU/mL Stool Occult Blood NEGATIVE NEGATIVE Current Medications Medications (Trade) Dose Ordered Sig/Zach Route PRN Reason Start Time Stop Time Status Last Admin Dose Admin Ceftriaxone Sodium 1 gm/ Sodium Chloride 50 ml @ 100 mls/hr BID IV 10/17/24 09:00 10/17/24 02:26 DC Ceftriaxone Sodium (ROCEphine 1G INJ) 1 gm BID IVPB 10/17/24 09:00 10/27/24 08:59 10/17/24 08:17 1 GM Dextrose (D50w) 50 ml AD PRN IV HYPOGLYCEMIA PROTOCOL 10/17/24 03:00 11/16/24 02:59 Glucagon (Glucagon 1mg Kit) 1 mg AD PRN IM HYPOGLYCEMIA PROTOCOL 10/17/24 03:00 11/16/24 02:59 Insulin Human Regular (humuLIN R 100 UNIT/ML 3ML) INSULIN SLIDING SCAL... ACHS SQ 10/17/24 04:30 11/16/24 04:29 10/17/24 12:27 3 UNIT Insulin Human Regular (humuLIN R 100 UNIT/ML 3ML) INSULIN SLIDING SCAL... ACHS SQ 10/17/24 07:30 10/17/24 04:08 DC Magnesium Sulfate 50 ml @ 0 mls/hr PROTOCOL PRN IV OTHER [SEE ORDER COMMENTS] 10/17/24 03:00 11/16/24 02:59 Ondansetron HCl (zoFRAN 4MG INJ) 4 mg Q6H PRN IV NAUSEA/VOMITING 10/17/24 02:30 11/16/24 02:29 Pantoprazole Sodium (PROTonix 40MG INJ) 40 mg DAILY IVP 10/17/24 09:00 11/16/24 08:59 10/17/24 08:16 40 MG Potassium Chloride 100 ml @ 50 mls/hr AD PRN IV POTASSIUM PROTOCOL 10/17/24 03:00 11/16/24 02:59 Sodium Chloride 1,000 ml @ 75 mls/hr [id number] IV 10/17/24 02:30 11/16/24 02:29 10/17/24 02:32 75 MLS/HR DIAGNOSTICS / RADIOLOGY: [ ] PATIENT: CHANELL FAIR MR#: [id number] : 1970 SEX: F AGE: 54 LOCATION: [facility] ORDER [id number] STATUS: ADM IN REPORT#: [id number] SERVICE [id number] REASON: diarrhea ORDERING PHYSICIAN: FADI BECKER PROCEDURE: ABD PELWWO - CT ABDOMEN/PELVIS W/WO CONTRAS CT ABDOMEN/PELVIS W/WO CONTRAS HISTORY: Diarrhea COMPARISON: 10/13/2024 TECHNIQUE: Multiple sequential axial images of the abdomen and pelvis were obtained from the dome of the diaphragm through symphysis pubis. Patient was given 100 cc of Omnipaque through intravenous route. Oral contrast was not given. FINDINGS: No pleural effusion is seen bilaterally. There is no evidence of parenchymal disease or pulmonary nodule of the visualized lower lungs. Degenerative changes of the thoracolumbar spine are present. The heart is not enlarged. Liver measured 22 cm. Spleen measured 12 cm. Postcholecystectomy changes are seen. The liver, spleen, adrenal glands and pancreas are unremarkable. There is no evidence of hydronephrosis bilaterally. No evidence of renal stone is seen. Fecal material is seen in the colon. There are normal size retroperitoneal and mesenteric lymph nodes. No ascites is seen. Atherosclerotic changes are present. Pelvic sidewalls are symmetric bilaterally. Bladder is poorly distended. IMPRESSION: 1. No acute findings. ASSESSMENT: Hyperglycemia secondary to uncontrolled diabetesPOA Acute urinary tract infection POA Suspected Diabetic gastroparesis POA Partial small bowel obstruction SBO, POA Acute gastrointestinal dysmotility POA UNINTENTIONAL WEIGHT LOSS POA Hyponatremia POA Morbid obesity POA Hypertension POA Hyperlipidemia POA PLAN: We will admit patient in medical surgical floor We will keep patient nothing by mouth Sliding scale insulin a.c. and HS Gastric emptying study for delayed motility. Endocrinology consult has been placed for additional workup and poorly controlled diabetes mellitus. Zofran4 mg IV q.8h p.r.n. for nausea. Monitor sodium q.12h for electrolyte management. Electrolyte replacement per protocol. Stool studies for ova parasites C diff and occult blood has been ordered. Abdominal x-ray to evaluate for ileus. We will start NS @ 75 ml / hr x1 bag and re evaluate We will start patient on Rocephin 1 g IV b.i.d. for empiric coverage Repeat urine culture and sensitivity. We will start on Protonix 40 mg IV daily for GI prophylaxis Repeat abdominal x-ray in 12-24 hours to assess for progression of SBO. Serial abdominal exams q.4h and monitor for worsening pain, distention and peritoneal signs. We will add prn medication for fever,pain,cough and nausea Reconciled home medication. We will seek gastroenterology consultation Tylenol IV p.r.n. is being administered for patient's pain We will request labs in am Further orders to follow depending on above results Case discussed with attending physician and came up with above treatment and plan of care. ATTESTATION BY PHYSICIAN I have seen and examined the patient. I reviewed the documentation, medical decision making, and treatment plan as noted by the mid-level provider above. I agree with the findings and plan of care. Garrick Menjivar MD, RAGHAVA R MD Oct 17, 2024 14:29
[2024-10-17] MEDS ORDERED: ALBUTEROL SULFATE IH SCH (15:00)
[2024-10-17] MEDS ORDERED: CALCIUM CARB 500MG CHEW TAB PO PRN (15:00)
[2024-10-17] MEDS ORDERED: ALBUTEROL 0.083% 2.5 MG/3 ML INH IH SCH (15:00)
--- NOTE | 2024-10-17 15:42 | HMCIMG ---
ABD 1VW HISTORY: Gastroparesis COMPARISON: None FINDINGS: A frontal projection of the abdomen was obtained. Mild small bowel dilatation is seen. Fecal material is seen in the colon. Degenerative changes of the thoracolumbar spine are noted. IMPRESSION: 1. Mild small bowel dilatation.
[2024-10-17 16:17] LABS: BASOPHILS # (AUTO) 0.02 K/uL (0.00-0.20); BASOPHILS % (AUTO) 0.4 % (0.0-5.0); EOSINOPHILS # (AUTO) 0.14 K/uL (0.00-0.70); EOSINOPHILS % (AUTO) 2.7 % (0.0-8.0); HEMATOCRIT 43.6 % (36-48); IMMATURE GRANULOCYTE ABSOLUTE 0.02 K/uL (0-1); LYMPHOCYTES # (AUTO) 2.2 K/uL (1.0-4.8); LYMPHOCYTES % (AUTO) 41.8 % (21.0-51.0); MEAN CORPUSCULAR HEMOGLOBIN 29.6 pg (27.0-33.0); MEAN CORPUSCULAR HGB CONC 32.3 g/dL (32.0-36.0); MEAN CORPUSCULAR VOLUME 91.4 fL (79-99); MONOCYTES # (AUTO) 0.5 K/uL (0.1-1.0); MONOCYTES % (AUTO) 10.2 % (3.0-13.0); NEUTROPHILS # (AUTO) 2.3 K/uL (1.8-7.7); NEUTROPHILS % (AUTO) 44.5 % (40.0-77.0); PLATELET COUNT (AUTO) 186 K/uL (130-400); RED BLOOD CELL COUNT(AUTO) 4.77 MIL/uL (4.00-5.50); RED CELL DISTRIBUTION WIDTH 14.1 % (11.0-15.5); WHITE BLOOD COUNT (AUTO) 5.2 K/uL (4.8-10.8)
[2024-10-17 16:36] LABS: ALBUMIN 2.6 g/dL (3.5-5.0); BILIRUBIN,TOTAL 0.2 mg/dL (0.2-1.0); CREATININE 0.6 mg/dL (0.5-1.0); POTASSIUM 3.6 mmol/L (3.5-5.1); TOTAL PROTEIN, SERUM 5.9 g/dL (6.0-8.3)
--- NOTE | 2024-10-17 16:45 | NUR ---
DCP Pt awake, alert, oriented x3 lives alone in an apartment and has ramp available. Pt uses a walker when ambulating and has provider services and goes to [facility]. She anticipates discharge is for home Addendum: 10/17/24 at 1648 by EDDY ANAND RN CM Amended: Links added.
[2024-10-17] MEDS: ALBUTEROL 0.083% 2.5 MG/3 ML INH IH SCH (18:47)
[2024-10-17] MEDS: atorVAStatin 10 MG TABLET PO SCH (21:10)
[2024-10-17] MEDS: GABAPENTIN 300 MG CAPSULE PO SCH (21:10)
[2024-10-17] MEDS: trAZOdone HCL 50 MG TAB PO SCH (21:10)
[2024-10-17] MEDS: queTIAPine fuMARate 100 MG TAB PO SCH (21:11)
[2024-10-17] MEDS: PoTASSium chloRIDE 20MEQ ER 20 MEQ ERTAB PO ONE (22:29)
[2024-10-17] MEDS ORDERED: PoTASSium chl 10% ELIXIR 20MEQ 20 MEQ/15 ML UDCUP PO PRN (22:30)
[2024-10-17] MEDS: PoTASSium chloRIDE 20MEQ ER 20 MEQ ERTAB PO PRN (23:57)
[2024-10-18] VITALS (13 sets, daily range): BP systolic 106–139; BP diastolic 56–67; PULSE 61–83; RESP 16–22; TEMP 97.4–98.9; O2SAT 95–98
[2024-10-18 06:37] LABS: BASOPHILS # (AUTO) 0.01 K/uL (0.00-0.20); BASOPHILS % (AUTO) 0.2 % (0.0-5.0); EOSINOPHILS # (AUTO) 0.17 K/uL (0.00-0.70); EOSINOPHILS % (AUTO) 3.7 % (0.0-8.0); HEMATOCRIT 44.1 % (36-48); IMMATURE GRANULOCYTE ABSOLUTE 0.01 K/uL (0-1); LYMPHOCYTES # (AUTO) 2.3 K/uL (1.0-4.8); LYMPHOCYTES % (AUTO) 50.9 % (21.0-51.0); MEAN CORPUSCULAR HEMOGLOBIN 29.6 pg (27.0-33.0); MEAN CORPUSCULAR HGB CONC 32.4 g/dL (32.0-36.0); MEAN CORPUSCULAR VOLUME 91.3 fL (79-99); MONOCYTES # (AUTO) 0.4 K/uL (0.1-1.0); MONOCYTES % (AUTO) 9.7 % (3.0-13.0); NEUTROPHILS # (AUTO) 1.6 K/uL (1.8-7.7); NEUTROPHILS % (AUTO) 35.3 % (40.0-77.0); PLATELET COUNT (AUTO) 200 K/uL (130-400); RED BLOOD CELL COUNT(AUTO) 4.83 MIL/uL (4.00-5.50); RED CELL DISTRIBUTION WIDTH 14.2 % (11.0-15.5); WHITE BLOOD COUNT (AUTO) 4.5 K/uL (4.8-10.8)
[2024-10-18 06:53] LABS: ALBUMIN 2.6 g/dL (3.5-5.0); BILIRUBIN,TOTAL 0.3 mg/dL (0.2-1.0); CREATININE 0.4 mg/dL (0.5-1.0); POTASSIUM 3.9 mmol/L (3.5-5.1); TOTAL PROTEIN, SERUM 5.7 g/dL (6.0-8.3)
--- NOTE | 2024-10-18 07:04 | CONS ---
CONSULT NOTE: endocrinology consult chief complaint: nausea and vomiting reason for consult: uncontrolled dm-2 Date of Service: Oct 18, 2024 HISTORY OF PRESENT ILLNESS: This is 54 years old female with past medical history of diabetes, hypertension, bipolar disorder and hyperlipidemia who was brought by EMS to the ED for complaints of abdominal pain associated with nausea,vomiting and diarrhea. Patient also reports she has dark vomitus and her stool is very watery and she started having subjective fever and chills today.Patient also reports she is unable to keep anything down so she decided to come to the ED .Patent reports she was here last 10/13 2024 for complaints of abdominal; pain and was found she has UTI and was sent home on Antibiotic. Latest vital signs temperature 98.1, heart rate 76, respiration 22, blood pressure 124/41 saturation 96% on room air. Labs: CBC is normal. Sodium 133, potassium 4.4 chloride 99, glucose 309 total calcium 8.4. There was a CT abdomen and pelvis without contrast done on October 13, 2024 which revealed bilateral adrenal adenoma. Bilateral renal pelvic stones without hydronephrosis. No ascites. hba1c 10.7%, she has dm-2 for many years. she takes only metformin 1000 mg bid at home. REVIEW OF SYSTEMS CONSTITUTIONAL: Complained of fever and chills Denies fevers, chills, or night sweats. No unintentional weight loss reported. NEUROLOGICAL: Denies headache, amaurosis fugax, motor weakness, sensory deficit, vertigo/spinning sensation, gait abnormalities, or tremors. ENT: No hearing loss, otalgia, otorrhea, rhinitis, rhinorrhea, hoarseness, or sore throat. CARDIOVASCULAR: Denies any exertional angina, dyspnea on exertion, orthopnea, paroxysmal nocturnal dyspnea, palpitations, life-threatening arrhythmias, c laudication. PULMONARY: Denies any shortness of breath, cough, phlegm/sputum, hemoptysis, pleuritic chest pain. SLEEP: Denies morning headaches, daytime somnolence or napping. Denies difficulty falling asleep, staying asleep, waking from sleep. Denies knowledge of snoring. GASTROINTESTINAL: Complained of abdominal pain, nausea and vomiting and diarrhea Denies any type of dysphagia to either liquids or solids. Denies pyrosis, early satiety, constipation, or changes in stool consistency or caliber. Denies coffee-ground emesis, hematemesis, hematochezia, or melanotic stools. GENITOURINARY: Denies frequency, urgency, nocturia, hematuria or incontinence (Storage/Irritative symptoms.) Low urinary stream, straining to void, urinary intermittency or hesitancy, splitting of the voiding stream, terminal dribbling. ENDOCRINOLOGIC: Denies polyuria, polydipsia, polyphagia or heat/cold intolerances. HEMATOLOGIC: Denies thrombophilia/previous clots, or coagulopathy/bleeding disorders. ONCOLOGIC: Denies personal history of malignancy. DERMATOLOGIC: Denies rashes or pruritus. PSYCHIATRIC: Denies any suicidal or homicidal ideation. Denies hallucinations. PAST MEDICAL HISTORY: [ diabetes, hypertension, bipolar disorder and hyperlipidemia] PAST SURGICAL HISTORY: [ Umbilical hernia repair and hysterectomy ] PAST SOCIAL HISTORY: [ Patient lives alone. Patient denies alcohol tobacco and recreational drug use ] FAMILY HISTORY: [ Stroke, hypertension and diabetes ] Coded Allergies: No Known Drug Allergies (Verified Allergy, Severe, 01/05/16) PHYSICAL EXAM GENERAL APPEARANCE: The patient is awake, alert, and oriented, in no acute cardiopulmonary distress. NEUROLOGICAL: Cranial nerves II-XII grossly intact. Motor is 5/5 in bilateral upper and lower extremities proximal to distal. No sensory deficits. HEENT: Face is symmetric. Pupils are equal and reactive. Extraocular movements are intact. NECK: Supple. No JVD. No thyromegaly. No submental, submandibular, pre- /postauricular, occipital or supraclavicular lymphadenopathy. CHEST: Normal chest expansion. No Telemetry. LUNGS: Absence of any rales, rhonchi or any wheezing. CARDIOVASCULAR: Regular. S1 and S2 normal. No appreciable rubs, murmurs or gallops. ABDOMEN: Soft and nondistended. There is no rebound, voluntary guarding, or rigidity. : Deferred. No Smith. EXTREMITIES: Non-edematous and not cyanotic. No clubbing. Good capillary ref ill. SKIN: No skin breakdown. ASSESSMENT: Hyperglycemia secondary to uncontrolled diabetes POA hba1c 10.7% hba1c 10.7%, she has dm-2 for many years. she takes only metformin 1000 mg bid at home. glucose runs greater than 200 mg/dl. Acute urinary tract infection POA Suspected Diabetic gastroparesis POA Hyponatremia POA Morbid obesity POA Hypertension POA Hyperlipidemia POA PLAN: start lantus 25 units daily start regular insulin 5 units qac before meals start medium dose ssi monitor glucose qx6 hourly patient will need insulin at discharge. thanks for allowing me to particpate in patient care and will continue fo follow up. Vital Signs 10/17/24 10/17/24 10/18/24 20:00 23:28 03:41 Temp 97.9 Pulse 83 Resp 22 B/P (MAP) 115/67 Pulse Ox 93 O2 Delivery Room Air O2 Flow Rate 0 FiO2 21 Hematology Labs: Test 10/18/24 06:12 Range/Units White Blood Count 4.5 L 4.8-10.8 K/uL Red Blood Count 4.83 4.00-5.50 MIL/uL Hemoglobin 14.3 12.0-16.0 g/dL Hematocrit 44.1 36-48 % Mean Corpuscular Volume 91.3 79-99 fL Mean Corpuscular Hemoglobin 29.6 27.0-33.0 pg Mean Corpuscular Hemoglobin Concent 32.4 32.0-36.0 g/dL Red Cell Distribution Width 14.2 11.0-15.5 % Platelet Count 200 130-400 K/uL Mean Platelet Volume 10.1 7.5-10.5 fL Immature Granulocyte % (Auto) 0.2 0-1 % Neutrophils (%) (Auto) 35.3 L 40.0-77.0 % Lymphocytes (%) (Auto) 50.9 21.0-51.0 % Monocytes (%) (Auto) 9.7 3.0-13.0 % Eosinophils (%) (Auto) 3.7 0.0-8.0 % Basophils (%) (Auto) 0.2 0.0-5.0 % Neutrophils # (Auto) 1.6 L 1.8-7.7 K/uL Lymphocytes # (Auto) 2.3 1.0-4.8 K/uL Monocytes # (Auto) 0.4 0.1-1.0 K/uL Eosinophils # (Auto) 0.17 0.00-0.70 K/uL Basophils # (Auto) 0.01 0.00-0.20 K/uL Absolute Immature Granulocyte (auto 0.01 0-1 K/uL Nucleated Red Blood Cells 0.0 0.0-0.19 % Chemistry Labs: Test 10/18/24 06:12 10/18/24 05:14 10/17/24 06:26 Range/Units Sodium Level 143 136-145 mmol/L Potassium Level 3.9 3.5-5.1 mmol/L Chloride Level 109 101-111 mmol/L Carbon Dioxide Level 28 21-32 mmol/L Blood Urea Nitrogen 7 7-18 mg/dL Creatinine 0.4 L 0.5-1.0 mg/dL Glomerular Filtration Rate Calc 116 >90 mL/min Random Glucose 235 H 70-105 mg/dL Total Calcium 8.4 L 8.5-10.1 mg/dL Magnesium Level 2.00 1.80-2.40 mg/dL Total Bilirubin 0.3 # 0.2-1.0 mg/dL Aspartate Amino Transf (AST/SGOT) 24 10-37 U/L Alanine Aminotransferase (ALT/SGPT) 31 12-78 U/L Alkaline Phosphatase 87 50-136 U/L Total Protein 5.7 L 6.0-8.3 g/dL Albumin 2.6 L 3.5-5.0 g/dL Whole Blood Glucose 227 H 70-110 MG/DL Hemoglobin A1c 10.7 H 4.0-6.0 % Estimated Average Glucose (eAG) 260 H 70-126 mg/dL Direct Bilirubin 0.1 0.0-0.3 mg/dL Triglycerides Level 111 30-200 mg/dL Cholesterol Level 108 <200 mg/dL LDL Cholesterol 60 0-99 mg/dL HDL Cholesterol 38 35-85 mg/dL Thyroid Stimulating Hormone (TSH) 2.66 0.36-3.74 uIU/mL Current Medications Medications (Trade) Dose Ordered Sig/Zach Route Start Time Stop Time Status Last Admin Dose Admin Albuterol Sulfate (Proventil 0.083% 2.5mg/3ml) 2.5 mg Q6H IH 10/17/24 15:00 10/17/24 15:47 DC Albuterol Sulfate (Proventil 0.083% 2.5mg/3ml) 2.5 mg [id number] IH 10/17/24 18:00 11/16/24 14:59 10/17/24 23:25 2.5 MG Aspirin (Aspirin 81mg Ec Tab) 81 mg DAILY PO 10/18/24 09:00 11/17/24 08:59 Atorvastatin Calcium (LIPItor 10MG) 40 mg HS PO 2/14/25 21:00 11/16/24 20:59 10/17/24 21:10 40 MG Ceftriaxone Sodium 1 gm/ Sodium Chloride 50 ml @ 100 mls/hr BID IV 10/17/24 09:00 10/17/24 02:26 DC Ceftriaxone Sodium (ROCEphine 1G INJ) 1 gm BID IVPB 10/17/24 09:00 10/27/24 08:59 10/17/24 21:10 1 GM Citalopram Hydrobromide (CeleXA 20MG TAB) 40 mg DAILY PO 10/18/24 09:00 11/17/24 08:59 Gabapentin (NEURontin 300 MG CAP) 300 mg BID PO 10/17/24 21:00 11/16/24 20:59 10/17/24 21:10 300 MG Insulin Human Regular (humuLIN R 100 UNIT/ML 3ML) INSULIN SLIDING SCAL... ACHS SQ 10/17/24 04:30 10/17/24 19:21 DC 10/17/24 16:31 7 UNIT Insulin Human Regular (humuLIN R 100 UNIT/ML 3ML) INSULIN SLIDING SCAL... ACHS SQ 10/17/24 07:30 10/17/24 04:08 DC Insulin Human Regular (humuLIN R 100 UNIT/ML 3ML) INSULIN SLIDING SCAL... ACHS SQ 10/17/24 16:30 10/17/24 19:16 DC 10/17/24 16:35 7 UNIT Insulin Human Regular (humuLIN R 100 UNIT/ML 3ML) INSULIN SLIDING SCAL... ACHS SQ 10/17/24 21:00 10/17/24 21:52 DC Insulin Human Regular (humuLIN R 100 UNIT/ML 3ML) INSULIN SLIDING SCAL... ACHS SQ 10/18/24 07:30 10/17/24 22:49 DC Insulin Human Regular (humuLIN R 100 UNIT/ML 3ML) INSULIN SLIDING SCAL... Q6H6 SQ 10/18/24 00:00 10/17/24 22:49 DC Insulin Human Regular (humuLIN R 100 UNIT/ML 3ML) INSULIN SLIDING SCAL... Q6H6 SQ 10/18/24 00:00 11/16/24 20:59 10/18/24 06:00 6 UNIT Losartan Potassium (CozAAR 50 mg TAB) 50 mg DAILY PO 10/18/24 09:00 11/17/24 08:59 Miscellaneous Medication (Albuterol Sulfate (Proventil Hfa)) 2 puff Q6H IH 10/17/24 15:00 10/17/24 14:49 DC Pantoprazole Sodium (PROTonix 40MG INJ) 40 mg DAILY IVP 10/17/24 09:00 11/16/24 08:59 10/17/24 08:16 40 MG Quetiapine Fumarate (SEROquel 100 mg TAB) 400 mg HS PO 10/17/24 21:00 11/16/24 20:59 10/17/24 21:11 400 MG Sodium Chloride 1,000 ml @ 75 mls/hr [id number] IV 10/17/24 02:30 11/16/24 02:29 10/17/24 23:46 75 MLS/HR Trazodone HCl (DesyREL/OlepTRO) 50 mg HS PO 10/17/24 21:00 11/16/24 20:59 10/17/24 21:10 50 MG DEEPTHI REICH MD Oct 18, 2024 07:04
--- NOTE | 2024-10-18 07:10 | NUR ---
The patient si received with report. She is in no distress and is resting in bed with IV fluids infusing by PIV. The call edgar is left in reach and the bed is in a low position. She is encouraged to call for any of her needs.
[2024-10-18] MEDS ORDERED: INSULIN humuLIN R 100 UNIT/ML 3ML SQ SCH ×2 (07:30)
[2024-10-18] MEDS: INSULIN humuLIN R 100 UNIT/ML 3ML SQ SCH (07:30)
--- NOTE | 2024-10-18 08:56 | HMCIMG ---
Exam Type: ABD 1VW Clinical Information: Small-bowel obstruction Comparison: None Findings: Abdomen demonstrates no evidence of pathologic calcification or soft tissue mass. There are no radiopacities to suggest calculous disease. The intestinal gas pattern is within normal limits without evidence of dilatation to suggest obstruction or adynamic ileus. The bony structures are unremarkable. IMPRESSION: Normal abdomen.
[2024-10-18] MEDS: ASPIRIN 81 MG EC TAB PO SCH (09:00)
[2024-10-18] MEDS: citaLOPram 20 MG TABLET PO SCH (09:00)
[2024-10-18] MEDS: LoSARTan 50 MG TABLET PO SCH (09:00)
[2024-10-18] MEDS: INSULIN GLARgine 100 UNITS/ML 10 ML VIAL SQ SCH (09:08)
--- NOTE | 2024-10-18 16:15 | PN ---
[facility] PROGRESS NOTE Date of Service: Oct 18, 2024 Time of Service: 16:14 SUBJECTIVE: This is 54 years old female with past medical history of diabetes, hypertension, bipolar disorder and hyperlipidemia who was brought by EMS to the ED for complaints of abdominal pain associated with nausea,vomiting and diarrhea.which started yesterday.Patient also reports she has dark vomitus and her stool is very watery and she started having subjective fever and chills today.Patient also reports she is unable to keep anything down so she decided to come to the ED .Patent reports she was here last 10/13 2024 for complaints of abdominal; painand was found she has UTI and was sent home on Antibiotic. Seen and examined patient in the ER awake,alert and coherent.Patient continue to complain of abdominal pain7/10 pain level.Patient denies sore throat,cough,chest pain,palpitation and shortness of breath. Latest vital signs temperature 98.1, heart rate 76, respiration 22, blood pressure 124/41 saturation 96% on room air. Labs: CBC is normal. Sodium 133, potassium 4.4 chloride 99, glucose 309 total calcium 8.4. There was a CT abdomen and pelvis without contrast done on October 13, 2024 which revealed bilateral adrenal adenoma. Bilateral renal pelvic stones without hydronephrosis. No ascites. While in the ER patient received Rocephin 1 g IV, Toradol 30 mg IV and Zofran 4 mg IV. We will admit patient for further medical management. 10/17/2024 The patient is a poor historian and provides an inconsistent account of symptoms. She initially reports persistent diarrhea for a few weeks but later states she sometimes does not have a bowel movement for up to 6 days before. Also endorses unintentional weight loss and poor oral intake over the past several weeks. On bedside examination the patient states that her abdominal discomfort slightly improved. But stools have early satiety nausea vomiting. On physical examination her blood pressure is 157/82 mmHg. The patient appears ill and dehydrated. And the abdominal examination has mild diffuse tenderness. Her electrolytes revealed a chloride of 100 that is slow and a glucose 2that is increased and HbA1c is 10.7 elevated stool occult blood test is negative and CT abdomen pelvis no acute findings. The patient is closely monitored and endocrinology gastroenterology consult has been placed and a nuclear emptying gastric emptying study has been ordered to evaluate for gastroparesis based on her chronic diabetes mellitus and poor management.Abdominal x-ray revealed mild small bowel dilation. 10/18/24 patient reports improvement in her nausea. She is down for her gastric emptying study today. She does report some constipation and p.r.n. laxatives will be used. We will recheck her labs REVIEW OF SYSTEMS CONSTITUTIONAL: Complained of fever and chills Denies fevers, chills, or night sweats. No unintentional weight loss reported. NEUROLOGICAL: Denies headache, amaurosis fugax, motor weakness, sensory deficit, vertigo/spinning sensation, gait abnormalities, or tremors. ENT: No hearing loss, otalgia, otorrhea, rhinitis, rhinorrhea, hoarseness, or sore throat. CARDIOVASCULAR: Denies any exertional angina, dyspnea on exertion, orthopnea, paroxysmal nocturnal dyspnea, palpitations, life-threatening arrhythmias, claudication. PULMONARY: Denies any shortness of breath, cough, phlegm/sputum, hemoptysis, pleuritic chest pain. SLEEP: Denies morning headaches, daytime somnolence or napping. Denies difficulty falling asleep, staying asleep, waking from sleep. Denies knowledge of snoring. GASTROINTESTINAL: Complained of abdominal pain, nausea and vomiting and diarrhea Denies any type of dysphagia to either liquids or solids. Denies pyrosis, early satiety, constipation, or changes in stool consistency or caliber. Denies coffee-ground emesis, hematemesis, hematochezia, or melanotic stools. GENITOURINARY: Denies frequency, urgency, nocturia, hematuria or incontinence (Storage/Irritative symptoms.) Low urinary stream, straining to void, urinary intermittency or hesitancy, splitting of the voiding stream, terminal dribbling. ENDOCRINOLOGIC: Denies polyuria, polydipsia, polyphagia or heat/cold intolerances. HEMATOLOGIC: Denies thrombophilia/previous clots, or coagulopathy/bleeding disorders. ONCOLOGIC: Denies personal history of malignancy. DERMATOLOGIC: Denies rashes or pruritus. PSYCHIATRIC: Denies any suicidal or homicidal ideation. Denies hallucinations. PHYSICAL EXAM GENERAL APPEARANCE: The patient is awake, alert, and oriented, in no acute cardiopulmonary distress. NEUROLOGICAL: Cranial nerves II-XII grossly intact. Motor is 5/5 in bilateral upper and lower extremities proximal to distal. No sensory deficits. HEENT: Face is symmetric. Pupils are equal and reactive. Extraocular movements are intact. NECK: Supple. No JVD. No thyromegaly. No submental, submandibular, pre- /postauricular, occipital or supraclavicular lymphadenopathy. CHEST: Normal chest expansion. No Telemetry. LUNGS: Absence of any rales, rhonchi or any wheezing. CARDIOVASCULAR: Regular. S1 and S2 normal. No appreciable rubs, murmurs or gallops. ABDOMEN: Abdominal tenderness around mid abdomen on palpation Soft and nondistended. There is no rebound, voluntary guarding, or rigidity. : Deferred. No Smith. EXTREMITIES: Non-edematous and not cyanotic. No clubbing. Good capillary refill. SKIN: No skin breakdown. Vital Signs (last 8hr) Date Time Temp Pulse Resp B/P (MAP) Pulse Ox O2 Delivery O2 Flow Rate FiO2 10/18/24 16:03 99.0 74 17 139/58 96 Room Air 10/18/24 11:46 97.3 61 17 116/61 95 Room Air 10/18/24 11:21 65 18 10/18/24 10:12 97 Room Air* 0 21 LABS: Laboratory: Test 10/18/24 16:06 10/18/24 06:12 10/17/24 06:26 10/17/24 04:15 Range/Units Whole Blood Glucose 188 H 70-110 MG/DL White Blood Count 4.5 L 4.8-10.8 K/uL Red Blood Count 4.83 4.00-5.50 MIL/uL Hemoglobin 14.3 12.0-16.0 g/dL Hematocrit 44.1 36-48 % Mean Corpuscular Volume 91.3 79-99 fL Mean Corpuscular Hemoglobin 29.6 27.0-33.0 pg Mean Corpuscular Hemoglobin Concent 32.4 32.0-36.0 g/dL Red Cell Distribution Width 14.2 11.0-15.5 % Platelet Count 200 130-400 K/uL Mean Platelet Volume 10.1 7.5-10.5 fL Immature Granulocyte % (Auto) 0.2 0-1 % Neutrophils (%) (Auto) 35.3 L 40.0-77.0 % Lymphocytes (%) (Auto) 50.9 21.0-51.0 % Monocytes (%) (Auto) 9.7 3.0-13.0 % Eosinophils (%) (Auto) 3.7 0.0-8.0 % Basophils (%) (Auto) 0.2 0.0-5.0 % Neutrophils # (Auto) 1.6 L 1.8-7.7 K/uL Lymphocytes # (Auto) 2.3 1.0-4.8 K/uL Monocytes # (Auto) 0.4 0.1-1.0 K/uL Eosinophils # (Auto) 0.17 0.00-0.70 K/uL Basophils # (Auto) 0.01 0.00-0.20 K/uL Absolute Immature Granulocyte (auto 0.01 0-1 K/uL Nucleated Red Blood Cells 0.0 0.0-0.19 % Sodium Level 143 136-145 mmol/L Potassium Level 3.9 3.5-5.1 mmol/L Chloride Level 109 101-111 mmol/L Carbon Dioxide Level 28 21-32 mmol/L Blood Urea Nitrogen 7 7-18 mg/dL Creatinine 0.4 L 0.5-1.0 mg/dL Glomerular Filtration Rate Calc 116 >90 mL/min Random Glucose 235 H 70-105 mg/dL Total Calcium 8.4 L 8.5-10.1 mg/dL Magnesium Level 2.00 1.80-2.40 mg/dL Total Bilirubin 0.3 # 0.2-1.0 mg/dL Aspartate Amino Transf (AST/SGOT) 24 10-37 U/L Alanine Aminotransferase (ALT/SGPT) 31 12-78 U/L Alkaline Phosphatase 87 50-136 U/L Total Protein 5.7 L 6.0-8.3 g/dL Albumin 2.6 L 3.5-5.0 g/dL Hemoglobin A1c 10.7 H 4.0-6.0 % Estimated Average Glucose (eAG) 260 H 70-126 mg/dL Direct Bilirubin 0.1 0.0-0.3 mg/dL Triglycerides Level 111 30-200 mg/dL Cholesterol Level 108 <200 mg/dL LDL Cholesterol 60 0-99 mg/dL HDL Cholesterol 38 35-85 mg/dL Thyroid Stimulating Hormone (TSH) 2.66 0.36-3.74 uIU/mL Stool Occult Blood NEGATIVE NEGATIVE Current Medications Medications (Trade) Dose Ordered Sig/Zach Route PRN Reason Start Time Stop Time Status Last Admin Dose Admin Albuterol Sulfate (Proventil 0.083% 2.5mg/3ml) 2.5 mg Q6H IH 10/17/24 15:00 10/17/24 15:47 DC Albuterol Sulfate (Proventil 0.083% 2.5mg/3ml) 2.5 mg [id number] IH 10/17/24 18:00 11/16/24 14:59 10/18/24 11:21 2.5 MG Aspirin (Aspirin 81mg Ec Tab) 81 mg DAILY PO 10/18/24 09:00 11/17/24 08:59 Atorvastatin Calcium (LIPItor 10MG) 40 mg HS PO 10/17/24 21:00 11/16/24 20:59 10/17/24 21:10 40 MG Calcium Carbonate (Tums 500 Mg Chew Tab) 1 tab TID PRN PO INDIGESTION 10/17/24 15:00 11/16/24 14:59 Ceftriaxone Sodium 1 gm/ Sodium Chloride 50 ml @ 100 mls/hr BID IV 10/17/24 09:00 10/17/24 02:26 DC Ceftriaxone Sodium (ROCEphine 1G INJ) 1 gm BID IVPB 10/17/24 09:00 10/27/24 08:59 10/18/24 09:00 1 GM Citalopram Hydrobromide (CeleXA 20MG TAB) 40 mg DAILY PO 10/18/24 09:00 11/17/24 08:59 Dextrose (D50w) 50 ml AD PRN IV HYPOGLYCEMIA PROTOCOL 10/17/24 03:00 11/16/24 02:59 Gabapentin (NEURontin 300 MG CAP) 300 mg BID PO 10/17/24 21:00 11/16/24 20:59 10/17/24 21:10 300 MG Glucagon (Glucagon 1mg Kit) 1 mg AD PRN IM HYPOGLYCEMIA PROTOCOL 10/17/24 03:00 11/16/24 02:59 Insulin Glargine (LANtus 100 UNITS/ML 10 ML VIAL) 25 units DAILY SQ 10/18/24 09:00 11/17/24 08:59 10/18/24 09:08 25 UNITS Insulin Human Regular (humuLIN R 100 UNIT/ML 3ML) 5 unit TIDAC SQ 10/18/24 07:30 11/17/24 07:29 Insulin Human Regular (humuLIN R 100 UNIT/ML 3ML) INSULIN SLIDING SCAL... ACHS SQ 10/17/24 04:30 10/17/24 19:21 DC 10/17/24 16:31 7 UNIT Insulin Human Regular (humuLIN R 100 UNIT/ML 3ML) INSULIN SLIDING SCAL... ACHS SQ 10/17/24 07:30 10/17/24 04:08 DC Insulin Human Regular (humuLIN R 100 UNIT/ML 3ML) INSULIN SLIDING SCAL... ACHS SQ 10/17/24 16:30 10/17/24 19:16 DC 10/17/24 16:35 7 UNIT Insulin Human Regular (humuLIN R 100 UNIT/ML 3ML) INSULIN SLIDING SCAL... ACHS SQ 10/17/24 21:00 10/17/24 21:52 DC Insulin Human Regular (humuLIN R 100 UNIT/ML 3ML) INSULIN SLIDING SCAL... ACHS SQ 10/18/24 07:30 10/17/24 22:49 DC Insulin Human Regular (humuLIN R 100 UNIT/ML 3ML) INSULIN SLIDING SCAL... Q6H6 SQ 10/18/24 00:00 10/17/24 22:49 DC Insulin Human Regular (humuLIN R 100 UNIT/ML 3ML) INSULIN SLIDING SCAL... Q6H6 SQ 10/18/24 00:00 11/16/24 20:59 10/18/24 12:24 6 UNIT Losartan Potassium (CozAAR 50 mg TAB) 50 mg DAILY PO 10/18/24 09:00 11/17/24 08:59 Magnesium Sulfate 50 ml @ 0 mls/hr PROTOCOL PRN IV OTHER [SEE ORDER COMMENTS] 10/17/24 03:00 11/16/24 02:59 Magnesium Sulfate 50 ml @ 0 mls/hr PROTOCOL PRN IV Diarrhea 10/17/24 15:00 11/16/24 14:59 Miscellaneous Medication (Albuterol Sulfate (Proventil Hfa)) 2 puff Q6H IH 10/17/24 15:00 10/17/24 14:49 DC Ondansetron HCl (zoFRAN 4MG INJ) 4 mg Q6H PRN IV NAUSEA/VOMITING 10/17/24 02:30 11/16/24 02:29 Pantoprazole Sodium (PROTonix 40MG INJ) 40 mg DAILY IVP 10/17/24 09:00 11/16/24 08:59 10/18/24 10:07 40 MG Polyethylene Glycol (MIRalax 3350 17 GM POWD.PACK) 17 gm DAILY PO 10/19/24 09:00 11/18/24 08:59 Potassium Chloride 100 ml @ 50 mls/hr AD PRN IV POTASSIUM PROTOCOL 10/17/24 03:00 11/16/24 02:59 Potassium Chloride 100 ml @ 100 mls/hr AD PRN IV POTASSIUM PROTOCOL 10/17/24 22:30 11/16/24 22:29 Potassium Chloride (K-Dur/Klor-Con 20meq) 20 meq AD PRN PO POTASSIUM PROTOCOL 10/17/24 22:30 11/16/24 22:29 10/17/24 23:57 20 MEQ Potassium Chloride (KCl 10% Elixir 20meq/15ml) 20 meq AD PRN PO POTASSIUM PROTOCOL 10/17/24 22:30 11/16/24 22:29 Quetiapine Fumarate (SEROquel 100 mg TAB) 400 mg HS PO 10/17/24 21:00 11/16/24 20:59 10/17/24 21:11 400 MG Sodium Chloride 1,000 ml @ 75 mls/hr [id number] IV 10/17/24 02:30 11/16/24 02:29 10/17/24 23:46 75 MLS/HR Trazodone HCl (DesyREL/OlepTRO) 50 mg HS PO 10/17/24 21:00 11/16/24 20:59 10/17/24 21:10 50 MG DIAGNOSTICS / RADIOLOGY: [ ] ASSESSMENT: Hyperglycemia secondary to uncontrolled diabetesPOA Acute urinary tract infection POA Suspected Diabetic gastroparesis POA Partial small bowel obstruction SBO, POA Acute gastrointestinal dysmotility POA UNINTENTIONAL WEIGHT LOSS POA Hyponatremia POA Morbid obesity POA Hypertension POA Hyperlipidemia POA PLAN: We will admit patient in medical surgical floor We will keep patient nothing by mouth Sliding scale insulin a.c. and HS Gastric emptying study for delayed motility. Endocrinology consult has been placed for additional workup and poorly controlled diabetes mellitus. Zofran4 mg IV q.8h p.r.n. for nausea. Monitor sodium q.12h for electrolyte management. Electrolyte replacement per protocol. Stool studies for ova parasites C diff and occult blood has been ordered. Abdominal x-ray to evaluate for ileus. We will start NS @ 75 ml / hr x1 bag and re evaluate We will start patient on Rocephin 1 g IV b.i.d. for empiric coverage Repeat urine culture and sensitivity. We will start on Protonix 40 mg IV daily for GI prophylaxis Repeat abdominal x-ray in 12-24 hours to assess for progression of SBO. Serial abdominal exams q.4h and monitor for worsening pain, distention and peritoneal signs. We will add prn medication for fever,pain,cough and nausea Reconciled home medication. We will seek gastroenterology consultation Tylenol IV p.r.n. is being administered for patient's pain We will request labs in am Further orders to follow depending on above results Case discussed with attending physician and came up with above treatment and plan of care. ZARA ESCUDERO MD Oct 18, 2024 16:15
[2024-10-18] MEDS ORDERED: LACTULOSE 20 GM/30 ML UDCUP PO PRN (19:00)
--- NOTE | 2024-10-18 21:48 | HMCIMG ---
NM GASTRIC EMPTYING STUDY HISTORY: Diabetic gastroparesis TECHNIQUE: 1.5 mCi of technetium 99 sulfur colloid was administered with scrambled egg.Sequential images were obtained and the gastric emptying calculated. FINDINGS: There is physiologic radiotracer activity in the stomach. Radiotracer activity is also seen in the small bowel. The linear fit T1/2 is 72 minutes. (Normal T1/2 is 90 min or less). IMPRESSION: No evidence of gastroparesis.
[2024-10-19] VITALS (12 sets, daily range): BP systolic 114–125; BP diastolic 55–65; PULSE 60–81; RESP 18–20; TEMP 97.3–98.1; O2SAT 95–97
[2024-10-19] MEDS: ondanSETRON 4MG INJ IV PRN (03:18)
[2024-10-19] MEDS: INSULIN humuLIN R 100 UNIT/ML 3ML SQ SCH ×2 (07:30→19:51)
[2024-10-19] MEDS: polyETHYLene GLYCol 3350 17 GM POWD.PACK PO SCH (08:31)
[2024-10-19] MEDS: INSULIN GLARgine 100 UNITS/ML 10 ML VIAL SQ SCH (08:43)
[2024-10-19 14:39] LABS: BASOPHILS # (AUTO) 0.01 K/uL (0.00-0.20); BASOPHILS % (AUTO) 0.2 % (0.0-5.0); EOSINOPHILS # (AUTO) 0.19 K/uL (0.00-0.70); EOSINOPHILS % (AUTO) 3.4 % (0.0-8.0); HEMATOCRIT 40.6 % (36-48); IMMATURE GRANULOCYTE ABSOLUTE 0.01 K/uL (0-1); LYMPHOCYTES # (AUTO) 2.6 K/uL (1.0-4.8); MEAN CORPUSCULAR HEMOGLOBIN 29.7 pg (27.0-33.0); MONOCYTES # (AUTO) 0.4 K/uL (0.1-1.0); MONOCYTES % (AUTO) 7.2 % (3.0-13.0); NEUTROPHILS # (AUTO) 2.5 K/uL (1.8-7.7); PLATELET COUNT (AUTO) 202 K/uL (130-400); RED BLOOD CELL COUNT(AUTO) 4.51 MIL/uL (4.00-5.50); RED CELL DISTRIBUTION WIDTH 14.1 % (11.0-15.5); WHITE BLOOD COUNT (AUTO) 5.7 K/uL (4.8-10.8)
[2024-10-19 14:52] LABS: ALBUMIN 2.6 g/dL (3.5-5.0); BILIRUBIN,TOTAL 0.2 mg/dL (0.2-1.0); CREATININE 0.6 mg/dL (0.5-1.0); POTASSIUM 3.7 mmol/L (3.5-5.1); TOTAL PROTEIN, SERUM 5.5 g/dL (6.0-8.3)
--- NOTE | 2024-10-19 15:31 | PN ---
endocrinology progress note Date of Service: Oct 19, 2024 subjective: glucose runs greater than 200 mg/dl hba1c 10.7%, she has dm-2 for many years. she takes only metformin 1000 mg bid at home. PAST MEDICAL HISTORY: [ diabetes, hypertension, bipolar disorder and hyperlipidemia] PAST SURGICAL HISTORY: [ Umbilical hernia repair and hysterectomy ] PAST SOCIAL HISTORY: [ Patient lives alone. Patient denies alcohol tobacco and recreational drug use ] FAMILY HISTORY: [ Stroke, hypertension and diabetes ] Coded Allergies: No Known Drug Allergies (Verified Allergy, Severe, 01/05/16) ASSESSMENT: Hyperglycemia secondary to uncontrolled diabetes POA hba1c 10.7% hba1c 10.7%, she has dm-2 for many years. she takes only metformin 1000 mg bid at home. glucose runs greater than 200 mg/dl. Acute urinary tract infection POA Suspected Diabetic gastroparesis POA Hyponatremia POA Morbid obesity POA Hypertension POA Hyperlipidemia POA PLAN: increase lantus to 30 units daily increase regular insulin to 10 units qac before meals continue medium dose ssi monitor glucose qx6 hourly patient will need insulin at discharge. Vitals/Labs Vital Signs Date Time Temp Pulse Resp B/P (MAP) Pulse Ox O2 Delivery O2 Flow Rate FiO2 10/19/24 11:33 64 18 10/19/24 11:21 97.7 125/59 94 Room Air 10/19/24 08:00 0 21 Laboratory Tests 10/19/24 14:13 10/19/24 14:35 Medications Current Medications Ondansetron HCl 4 mg ONCE ONCE IVP Last administered on 10/17/24at 00:39; Start 10/17/24 at 00:00; Stop 10/17/24 at 00:01; Status DC Ketorolac Tromethamine 30 mg ONCE ONCE IVP Last administered on 10/17/24at 00:39; Start 10/17/24 at 00:00; Stop 10/17/24 at 00:01; Status DC Ceftriaxone Sodium 1 gm ONCE ONCE IVPB Last administered on 10/17/24at 02:32; Start 10/17/24 at 01:30; Stop 10/17/24 at 01:31; Status DC Ondansetron HCl 4 mg Q6H PRN IV Last administered on 10/19/24at 03:18; Start 10/17/24 at 02:30; Stop 11/16/24 at 02:29 Sodium Chloride 1,000 ml @ 75 mls/hr [id number] IV Last administered on 10/17/24at 23:46; Start 10/17/24 at 02:30; Stop 10/18/24 at 19:36; Status DC Ceftriaxone Sodium 1 gm/ Sodium Chloride 50 ml @ 100 mls/hr BID IV; Start 10/17/24 at 09:00; Stop 10/17/24 at 02:26; Status DC Ceftriaxone Sodium 1 gm BID IVPB Last administered on 10/19/24at 08:32; Start 10/17/24 at 09:00; Stop 10/27/24 at 08:59 Pantoprazole Sodium 40 mg DAILY IVP Last administered on 10/19/24at 08:32; Start 10/17/24 at 09:00; Stop 11/16/24 at 08:59 Insulin Human Regular INSULIN SLIDING SCAL... ACHS SQ; Start 10/17/24 at 07:30; Stop 10/17/24 at 04:08; Status DC Dextrose 50 ml AD PRN IV; Start 10/17/24 at 03:00; Stop 11/16/24 at 02:59 Glucagon 1 mg AD PRN IM; Start 10/17/24 at 03:00; Stop 11/16/24 at 02:59 Magnesium Sulfate 50 ml @ 0 mls/hr PROTOCOL PRN IV; Start 10/17/24 at 03:00; Stop 11/16/24 at 02:59 Potassium Chloride 100 ml @ 50 mls/hr AD PRN IV; Start 10/17/24 at 03:00; Stop 11/16/24 at 02:59 Insulin Human Regular INSULIN SLIDING SCAL... ACHS SQ Last administered on 10/17/24at 16:31; Start 10/17/24 at 04:30; Stop 10/17/24 at 19:21; Status DC Ketorolac Tromethamine 15 mg ONCE ONCE IV Last administered on 10/17/24at 04:15; Start 10/17/24 at 04:30; Stop 10/17/24 at 04:32; Status DC Iohexol 35,000 mg STK-MED ONCE IV; Start 10/17/24 at 09:49; Stop 10/17/24 at 09:50; Status DC Insulin Human Regular INSULIN SLIDING SCAL... ACHS SQ Last administered on 10/17/24at 16:35; Start 10/17/24 at 16:30; Stop 10/17/24 at 19:16; Status DC Magnesium Sulfate 50 ml @ 0 mls/hr PROTOCOL PRN IV; Start 10/17/24 at 15:00; Stop 11/16/24 at 14:59 Aspirin 81 mg DAILY PO Last administered on 10/19/24at 08:30; Start 10/18/24 at 09:00; Stop 11/17/24 at 08:59 Atorvastatin Calcium 40 mg HS PO Last administered on 10/18/24at 20:30; Start 10/17/24 at 21:00; Stop 11/16/24 at 20:59 Gabapentin 300 mg BID PO Last administered on 10/19/24at 08:30; Start 10/17/24 at 21:00; Stop 11/16/24 at 20:59 Losartan Potassium 50 mg DAILY PO Last administered on 10/19/24at 08:31; Start 10/18/24 at 09:00; Stop 11/17/24 at 08:59 Trazodone HCl 50 mg HS PO Last administered on 10/18/24at 20:29; Start 10/17/24 at 21:00; Stop 11/16/24 at 20:59 Miscellaneous Medication 2 puff Q6H IH; Start 10/17/24 at 15:00; Stop 10/17/24 at 14:49; Status DC Calcium Carbonate 1 tab TID PRN PO; Start 10/17/24 at 15:00; Stop 11/16/24 at 14:59 Citalopram Hydrobromide 40 mg DAILY PO Last administered on 10/19/24at 08:30; Start 10/18/24 at 09:00; Stop 11/17/24 at 08:59 Quetiapine Fumarate 400 mg HS PO Last administered on 10/18/24at 20:29; Start 10/17/24 at 21:00; Stop 11/16/24 at 20:59 Albuterol Sulfate 2.5 mg Q6H IH; Start 10/17/24 at 15:00; Stop 10/17/24 at 15:47; Status DC Albuterol Sulfate 2.5 mg [id number] IH Last administered on 10/19/24at 11:33; Start 10/17/24 at 18:00; Stop 11/16/24 at 14:59 Insulin Human Regular INSULIN SLIDING SCAL... ACHS SQ; Start 10/17/24 at 21:00; Stop 10/17/24 at 21:52; Status DC Insulin Human Regular INSULIN SLIDING SCAL... Q6H6 SQ Last administered on 10/19/24at 12:04; Start 10/18/24 at 00:00; Stop 11/16/24 at 20:59 Potassium Chloride 100 ml @ 100 mls/hr AD PRN IV; Start 10/17/24 at 22:30; Stop 11/16/24 at 22:29 Potassium Chloride 20 meq AD PRN PO; Start 10/17/24 at 22:30; Stop 11/16/24 at 22:29 Potassium Chloride 20 meq AD PRN PO Last administered on 10/17/24at 23:57; Start 10/17/24 at 22:30; Stop 11/16/24 at 22:29 Potassium Chloride 20 meq STK-MED ONCE PO Last administered on 10/17/24at 22:29; Start 10/17/24 at 22:09; Stop 10/17/24 at 22:10; Status DC Insulin Human Regular INSULIN SLIDING SCAL... ACHS SQ; Start 10/18/24 at 07:30; Stop 10/17/24 at 22:49; Status DC Insulin Human Regular INSULIN SLIDING SCAL... Q6H6 SQ; Start 10/18/24 at 00:00; Stop 10/17/24 at 22:49; Status DC Insulin Glargine 25 units DAILY SQ Last administered on 10/18/24at 09:08; Start 10/18/24 at 09:00; Stop 10/19/24 at 06:45; Status DC Insulin Human Regular 5 unit TIDAC SQ Last administered on 10/19/24at 06:02; Start 10/18/24 at 07:30; Stop 10/19/24 at 06:45; Status DC Polyethylene Glycol 17 gm DAILY PO Last administered on 10/19/24at 08:31; Start 10/19/24 at 09:00; Stop 11/18/24 at 08:59 Lactulose 20 gm BID PRN PO; Start 10/18/24 at 19:00; Stop 11/17/24 at 18:59 Insulin Glargine 30 units DAILY SQ Last administered on 10/19/24at 08:43; Start 10/19/24 at 09:00; Stop 11/18/24 at 08:59 Insulin Human Regular 7 unit TIDAC SQ Last administered on 10/19/24at 12:03; Start 10/19/24 at 07:30; Stop 11/18/24 at 07:29 DEEPTHI REICH MD Oct 19, 2024 15:31
--- NOTE | 2024-10-19 16:37 | PN ---
[facility] PROGRESS NOTE Date of Service: Oct 19, 2024 Time of Service: 16:36 SUBJECTIVE: This is 54 years old female with past medical history of diabetes, hypertension, bipolar disorder and hyperlipidemia who was brought by EMS to the ED for complaints of abdominal pain associated with nausea,vomiting and diarrhea.which started yesterday.Patient also reports she has dark vomitus and her stool is very watery and she started having subjective fever and chills today.Patient also reports she is unable to keep anything down so she decided to come to the ED .Patent reports she was here last 10/13 2024 for complaints of abdominal; painand was found she has UTI and was sent home on Antibiotic. Seen and examined patient in the ER awake,alert and coherent.Patient continue to complain of abdominal pain7/10 pain level.Patient denies sore throat,cough,chest pain,palpitation and shortness of breath. Latest vital signs temperature 98.1, heart rate 76, respiration 22, blood pressure 124/41 saturation 96% on room air. Labs: CBC is normal. Sodium 133, potassium 4.4 chloride 99, glucose 309 total calcium 8.4. There was a CT abdomen and pelvis without contrast done on October 13, 2024 which revealed bilateral adrenal adenoma. Bilateral renal pelvic stones without hydronephrosis. No ascites. While in the ER patient received Rocephin 1 g IV, Toradol 30 mg IV and Zofran 4 mg IV. We will admit patient for further medical management. 10/17/2024 The patient is a poor historian and provides an inconsistent account of symptoms. She initially reports persistent diarrhea for a few weeks but later states she sometimes does not have a bowel movement for up to 6 days before. Also endorses unintentional weight loss and poor oral intake over the past several weeks. On bedside examination the patient states that her abdominal discomfort slightly improved. But stools have early satiety nausea vomiting. On physical examination her blood pressure is 157/82 mmHg. The patient appears ill and dehydrated. And the abdominal examination has mild diffuse tenderness. Her electrolytes revealed a chloride of 100 that is slow and a glucose 2that is increased and HbA1c is 10.7 elevated stool occult blood test is negative and CT abdomen pelvis no acute findings. The patient is closely monitored and endocrinology gastroenterology consult has been placed and a nuclear emptying gastric emptying study has been ordered to evaluate for gastroparesis based on her chronic diabetes mellitus and poor management.Abdominal x-ray revealed mild small bowel dilation. 10/18/24 patient reports improvement in her nausea. She is down for her gastric emptying study today. She does report some constipation and p.r.n. laxatives will be used. We will recheck her labs 10/19/24 patient is seen and examined. Case discussed with RN. She has abdominal pain and nausea today REVIEW OF SYSTEMS CONSTITUTIONAL: Complained of fever and chills Denies fevers, chills, or night sweats. No unintentional weight loss reported. NEUROLOGICAL: Denies headache, amaurosis fugax, motor weakness, sensory deficit, vertigo/spinning sensation, gait abnormalities, or tremors. ENT: No hearing loss, otalgia, otorrhea, rhinitis, rhinorrhea, hoarseness, or sore throat. CARDIOVASCULAR: Denies any exertional angina, dyspnea on exertion, orthopnea, paroxysmal nocturnal dyspnea, palpitations, life-threatening arrhythmias, claudication. PULMONARY: Denies any shortness of breath, cough, phlegm/sputum, hemoptysis, pleuritic chest pain. SLEEP: Denies morning headaches, daytime somnolence or napping. Denies difficulty falling asleep, staying asleep, waking from sleep. Denies knowledge of snoring. GASTROINTESTINAL: Complained of abdominal pain, nausea and vomiting and diarrh ea Denies any type of dysphagia to either liquids or solids. Denies pyrosis, early satiety, constipation, or changes in stool consistency or caliber. Denies coffee-ground emesis, hematemesis, hematochezia, or melanotic stools. GENITOURINARY: Denies frequency, urgency, nocturia, hematuria or incontinence (Storage/Irritative symptoms.) Low urinary stream, straining to void, urinary intermittency or hesitancy, splitting of the voiding stream, terminal dribbling. ENDOCRINOLOGIC: Denies polyuria, polydipsia, polyphagia or heat/cold intolerances. HEMATOLOGIC: Denies thrombophilia/previous clots, or coagulopathy/bleeding disorders. ONCOLOGIC: Denies personal history of malignancy. DERMATOLOGIC: Denies rashes or pruritus. PSYCHIATRIC: Denies any suicidal or homicidal ideation. Denies hallucinations. PHYSICAL EXAM GENERAL APPEARANCE: The patient is awake, alert, and oriented, in no acute cardiopulmonary distress. NEUROLOGICAL: Cranial nerves II-XII grossly intact. Motor is 5/5 in bilateral upper and lower extremities proximal to distal. No sensory deficits. HEENT: Face is symmetric. Pupils are equal and reactive. Extraocular movements are intact. NECK: Supple. No JVD. No thyromegaly. No submental, submandibular, pre- /postauricular, occipital or supraclavicular lymphadenopathy. CHEST: Normal chest expansion. No Telemetry. LUNGS: Absence of any rales, rhonchi or any wheezing. CARDIOVASCULAR: Regular. S1 and S2 normal. No appreciable rubs, murmurs or gallops. ABDOMEN: Abdominal tenderness around mid abdomen on palpation Soft and nondistended. There is no rebound, voluntary guarding, or rigidity. : Deferred. No Smith. EXTREMITIES: Non-edematous and not cyanotic. No clubbing. Good capillary re fill. SKIN: No skin breakdown. Vital Signs (last 8hr) Date Time Temp Pulse Resp B/P (MAP) Pulse Ox O2 Delivery O2 Flow Rate FiO2 10/19/24 15:55 97.7 67 18 114/57 94 Room Air 10/19/24 11:33 64 18 10/19/24 11:21 97.7 71 18 125/59 94 Room Air LABS: Laboratory: Test 10/19/24 15:20 10/19/24 14:35 10/19/24 14:13 10/18/24 06:12 Range/Units Whole Blood Glucose 206 H 70-110 MG/DL White Blood Count 5.7 4.8-10.8 K/uL Red Blood Count 4.51 4.00-5.50 MIL/uL Hemoglobin 13.4 12.0-16.0 g/dL Hematocrit 40.6 36-48 % Mean Corpuscular Volume 90.0 79-99 fL Mean Corpuscular Hemoglobin 29.7 27.0-33.0 pg Mean Corpuscular Hemoglobin Concent 33.0 32.0-36.0 g/dL Red Cell Distribution Width 14.1 11.0-15.5 % Platelet Count 202 130-400 K/uL Mean Platelet Volume 9.6 7.5-10.5 fL Immature Granulocyte % (Auto) 0.2 0-1 % Neutrophils (%) (Auto) 44.0 40.0-77.0 % Lymphocytes (%) (Auto) 45.0 21.0-51.0 % Monocytes (%) (Auto) 7.2 3.0-13.0 % Eosinophils (%) (Auto) 3.4 0.0-8.0 % Basophils (%) (Auto) 0.2 0.0-5.0 % Neutrophils # (Auto) 2.5 1.8-7.7 K/uL Lymphocytes # (Auto) 2.6 1.0-4.8 K/uL Monocytes # (Auto) 0.4 0.1-1.0 K/uL Eosinophils # (Auto) 0.19 0.00-0.70 K/uL Basophils # (Auto) 0.01 0.00-0.20 K/uL Absolute Immature Granulocyte (auto 0.01 0-1 K/uL Nucleated Red Blood Cells 0.0 0.0-0.19 % Sodium Level 138 136-145 mmol/L Potassium Level 3.7 3.5-5.1 mmol/L Chloride Level 104 101-111 mmol/L Carbon Dioxide Level 30 21-32 mmol/L Blood Urea Nitrogen 6 L 7-18 mg/dL Creatinine 0.6 0.5-1.0 mg/dL Glomerular Filtration Rate Calc 105 >90 mL/min Random Glucose 253 H 70-105 mg/dL Total Calcium 8.3 L 8.5-10.1 mg/dL Total Bilirubin 0.2 0.2-1.0 mg/dL Aspartate Amino Transf (AST/SGOT) 18 10-37 U/L Alanine Aminotransferase (ALT/SGPT) 32 12-78 U/L Alkaline Phosphatase 85 50-136 U/L Total Protein 5.5 L 6.0-8.3 g/dL Albumin 2.6 L 3.5-5.0 g/dL Magnesium Level 2.00 1.80-2.40 mg/dL Current Medications Medications (Trade) Dose Ordered Sig/Zach Route PRN Reason Start Time Stop Time Status Last Admin Dose Admin Albuterol Sulfate (Proventil 0.083% 2.5mg/3ml) 2.5 mg Q6H 10/17/24 15:00 10/17/24 15:47 DC Albuterol Sulfate (Proventil 0.083% 2.5mg/3ml) 2.5 mg Q5TIVNV 10/17/24 18:00 11/16/24 14:59 10/19/24 11:33 2.5 MG Aspirin (Aspirin 81mg Ec Tab) 81 mg DAILY PO 10/18/24 09:00 11/17/24 08:59 10/19/24 08:30 81 MG Atorvastatin Calcium (LIPItor 10MG) 40 mg HS PO 10/17/24 21:00 11/16/24 20:59 10/18/24 20:30 40 MG Calcium Carbonate (Tums 500 Mg Chew Tab) 1 tab TID PRN PO INDIGESTION 10/17/24 15:00 11/16/24 14:59 Ceftriaxone Sodium 1 gm/ Sodium Chloride 50 ml @ 100 mls/hr BID IV 10/17/24 09:00 10/17/24 02:26 DC Ceftriaxone Sodium (ROCEphine 1G INJ) 1 gm BID IVPB 10/17/24 09:00 10/27/24 08:59 10/19/24 08:32 1 GM Citalopram Hydrobromide (CeleXA 20MG TAB) 40 mg DAILY PO 10/18/24 09:00 11/17/24 08:59 10/19/24 08:30 40 MG Dextrose (D50w) 50 ml AD PRN IV HYPOGLYCEMIA PROTOCOL 10/17/24 03:00 11/16/24 02:59 Gabapentin (NEURontin 300 MG CAP) 300 mg BID PO 10/17/24 21:00 11/16/24 20:59 10/19/24 08:30 300 MG Glucagon (Glucagon 1mg Kit) 1 mg AD PRN IM HYPOGLYCEMIA PROTOCOL 10/17/24 03:00 11/16/24 02:59 Insulin Glargine (LANtus 100 UNITS/ML 10 ML VIAL) 25 units DAILY SQ 10/18/24 09:00 10/19/24 06:45 DC 10/18/24 09:08 25 UNITS Insulin Glargine (LANtus 100 UNITS/ML 10 ML VIAL) 30 units DAILY SQ 10/19/24 09:00 11/18/24 08:59 10/19/24 08:43 30 UNITS Insulin Human Regular (humuLIN R 100 UNIT/ML 3ML) 5 unit TIDAC SQ 10/18/24 07:30 10/19/24 06:45 DC 10/19/24 06:02 5 UNIT Insulin Human Regular (humuLIN R 100 UNIT/ML 3ML) 7 unit TIDAC SQ 10/19/24 07:30 11/18/24 07:29 10/19/24 12:03 7 UNIT Insulin Human Regular (humuLIN R 100 UNIT/ML 3ML) INSULIN SLIDING SCAL... ACHS SQ 10/17/24 04:30 10/17/24 19:21 DC 10/17/24 16:31 7 UNIT Insulin Human Regular (humuLIN R 100 UNIT/ML 3ML) INSULIN SLIDING SCAL... ACHS SQ 10/17/24 07:30 10/17/24 04:08 DC Insulin Human Regular (humuLIN R 100 UNIT/ML 3ML) INSULIN SLIDING SCAL... ACHS SQ 10/17/24 16:30 10/17/24 19:16 DC 10/17/24 16:35 7 UNIT Insulin Human Regular (humuLIN R 100 UNIT/ML 3ML) INSULIN SLIDING SCAL... ACHS SQ 10/17/24 21:00 10/17/24 21:52 DC Insulin Human Regular (humuLIN R 100 UNIT/ML 3ML) INSULIN SLIDING SCAL... ACHS SQ 10/18/24 07:30 10/17/24 22:49 DC Insulin Human Regular (humuLIN R 100 UNIT/ML 3ML) INSULIN SLIDING SCAL... Q6H6 SQ 10/18/24 00:00 10/17/24 22:49 DC Insulin Human Regular (humuLIN R 100 UNIT/ML 3ML) INSULIN SLIDING SCAL... Q6H6 SQ 10/18/24 00:00 11/16/24 20:59 10/19/24 12:04 6 UNIT Lactulose (Constulose 20gm/ 30ml Udcup) 20 gm BID PRN PO CONSTIPATION 10/18/24 19:00 11/17/24 18:59 Losartan Potassium (CozAAR 50 mg TAB) 50 mg DAILY PO 10/18/24 09:00 11/17/24 08:59 10/19/24 08:31 50 MG Magnesium Sulfate 50 ml @ 0 mls/hr PROTOCOL PRN IV OTHER [SEE ORDER COMMENTS] 10/17/24 03:00 11/16/24 02:59 Magnesium Sulfate 50 ml @ 0 mls/hr PROTOCOL PRN IV Diarrhea 10/17/24 15:00 11/16/24 14:59 Miscellaneous Medication (Albuterol Sulfate (Proventil Hfa)) 2 puff Q6H IH 10/17/24 15:00 10/17/24 14:49 DC Ondansetron HCl (zoFRAN 4MG INJ) 4 mg Q6H PRN IV NAUSEA/VOMITING 10/17/24 02:30 11/16/24 02:29 10/19/24 03:18 4 MG Pantoprazole Sodium (PROTonix 40MG INJ) 40 mg DAILY IVP 10/17/24 09:00 11/16/24 08:59 10/19/24 08:32 40 MG Polyethylene Glycol (MIRalax 3350 17 GM POWD.PACK) 17 gm DAILY PO 10/19/24 09:00 11/18/24 08:59 10/19/24 08:31 17 GM Potassium Chloride 100 ml @ 50 mls/hr AD PRN IV POTASSIUM PROTOCOL 10/17/24 03:00 11/16/24 02:59 Potassium Chloride 100 ml @ 100 mls/hr AD PRN IV POTASSIUM PROTOCOL 10/17/24 22:30 11/16/24 22:29 Potassium Chloride (K-Dur/Klor-Con 20meq) 20 meq AD PRN PO POTASSIUM PROTOCOL 10/17/24 22:30 11/16/24 22:29 10/17/24 23:57 20 MEQ Potassium Chloride (KCl 10% Elixir 20meq/15ml) 20 meq AD PRN PO POTASSIUM PROTOCOL 10/17/24 22:30 11/16/24 22:29 Quetiapine Fumarate (SEROquel 100 mg TAB) 400 mg HS PO 10/17/24 21:00 11/16/24 20:59 10/18/24 20:29 400 MG Sodium Chloride 1,000 ml @ 75 mls/hr [id number] IV 10/17/24 02:30 10/18/24 19:36 DC 10/17/24 23:46 75 MLS/HR Trazodone HCl (DesyREL/OlepTRO) 50 mg HS PO 10/17/24 21:00 11/16/24 20:59 10/18/24 20:29 50 MG DIAGNOSTICS / RADIOLOGY: [ ] ASSESSMENT: Hyperglycemia secondary to uncontrolled diabetesPOA Acute urinary tract infection POA Suspected Diabetic gastroparesis POA Partial small bowel obstruction SBO, POA Acute gastrointestinal dysmotility POA UNINTENTIONAL WEIGHT LOSS POA Hyponatremia POA Morbid obesity POA Hypertension POA Hyperlipidemia POA PLAN: We will admit patient in medical surgical floor We will keep patient nothing by mouth Sliding scale insulin a.c. and HS Gastric emptying study for delayed motility. Endocrinology consult has been placed for additional workup and poorly controlled diabetes mellitus. Zofran4 mg IV q.8h p.r.n. for nausea. Monitor sodium q.12h for electrolyte management. Electrolyte replacement per protocol. Stool studies for ova parasites C diff and occult blood has been ordered. Abdominal x-ray to evaluate for ileus. We will start NS @ 75 ml / hr x1 bag and re evaluate We will start patient on Rocephin 1 g IV b.i.d. for empiric coverage Repeat urine culture and sensitivity. We will start on Protonix 40 mg IV daily for GI prophylaxis Repeat abdominal x-ray in 12-24 hours to assess for progression of SBO. Serial abdominal exams q.4h and monitor for worsening pain, distention and peritoneal signs. We will add prn medication for fever,pain,cough and nausea Reconciled home medication. We will seek gastroenterology consultation Tylenol IV p.r.n. is being administered for patient's pain We will request labs in am Further orders to follow depending on above results Case discussed with attending physician and came up with above treatment and plan of care. ZARA ESCUDERO MD Oct 19, 2024 16:37
[2024-10-19 16:47] LABS: APPEARANCE,URINE CLEAR (CLEAR); BILIRUBIN,URINE NEGATIVE (NEGATIVE); COLOR,URINE LIGHT-YELLOW (YELLOW); GLUCOSE, URINE (UA) 500 mg/dL (NEGATIVE); KETONES,URINE NEGATIVE (NEGATIVE); LEUKOCYTE ESTERASE ,URINE 250 Leu/uL (NEGATIVE); NITRATE,URINE NEGATIVE (NEGATIVE); OCCULT BLOOD,URINE NEGATIVE (NEGATIVE); PROTEIN,URINE NEGATIVE (NEGATIVE); UROBILINOGEN,URINE 0.2 mg/dL (0.2-1.0)
[2024-10-19 16:49] LABS: ADD UA MICROSCOPIC YES
[2024-10-19 16:51] LABS: BACTERIA,URINE RARE /HPF (None Seen); MUCUS,URINE RARE LPF (None Seen); RBC,URINE 0-1 /HPF (0-1); SQUAMOUS EPITHELIAL CELL,UR RARE /HPF (0-2)
[2024-10-20] VITALS (13 sets, daily range): BP systolic 102–131; BP diastolic 55–63; PULSE 61–75; RESP 18–22; TEMP 97.5–98.9; O2SAT 95–98
--- NOTE | 2024-10-20 09:09 | PN ---
GASTROENTEROLOGY PROGRESS NOTE Date of Visit: Oct 20, 2024 Time of Visit: 09:09 Events / Notes: No acute events overnight. She complains of nausea and vomiting. Denies abdominal pain. She has; however, been tolerating diet as per nurse. No diarrhea. Review of Systems: CONSTITUTIONAL: No malaise or change in sensation of wellbeing. ENMT: No rhinorrhea, otorrhea, sinus pain, ear ache. CARDIOVASCULAR: No angina, palpitations, orthopnea or paroxysmal dyspnea. RESPIRATORY: No SOB. GASTROINTESTINAL: No abdominal pain, nausea, vomiting, diarrhea, hematemesis, melena or change in the patient's habitual bowel movements consistency/number. GENITOURINARY: No dysuria, hematuria or change in bladder continence. MUSCULOSKELETAL: No new muscle pain or decrease in muscular strength. No new joint swelling, redness or tenderness. SKIN: No new rash. Physical Exam: GEN: Awake, alert, oriented in person, time and place, and in no acute distress. HEENT: No sinus tenderness. Tympanic membranes were not examined. No rhinorrhea. Oral pharyngeal mucosa is pink, moist and within normal limits. Neck is supple with no cervical lymphadenopathy, thyromegaly or JVD. CHEST: Inspection, palpation and percussion of the chest were unremarkable. Lung auscultation revealed normal breath sounds bilaterally. CARDIAC: PMI is within normal limits. Heart sounds are regular. Normal S1, S2. No gallop or murmur. ABD: Soft, non-tender and not distended. No peritoneal signs on palpation. No organomegaly. Normal bowel sounds. EXT: No cyanosis or clubbing. No edema. SKIN: Intact. No rashes. JOINTS: No evidence of synovitis or acute arthritis. NEURO: Alert and oriented to name, place and person. Cranial nerve examination is unremarkable. No focal motor deficits. Normal speech. Gait is normal. Strength is normal. Vital Signs (last 8hr) Date Time Temp Pulse Resp B/P (MAP) Pulse Ox O2 Delivery O2 Flow Rate FiO2 10/20/24 08:00 97.9 72 20 119/57 93 10/20/24 03:45 99.0 61 22 118/60 95 Room Air Laboratory: [ ] Laboratory: Test 10/20/24 04:59 10/19/24 16:30 10/19/24 14:35 2/16/25 14:13 Range/Units Whole Blood Glucose 202 H 70-110 MG/DL Urine Color LIGHT-YELLOW YELLOW Urine Appearance CLEAR CLEAR Urine pH 5.0 5.0-8.0 Urine Specific [place] 1.004 1.001-1.031 Urine Protein NEGATIVE NEGATIVE mg/dL Urine Glucose (UA) 500 H NEGATIVE mg/dL Urine Ketones NEGATIVE NEGATIVE mg/dL Urine Occult Blood NEGATIVE NEGATIVE Urine Nitrate NEGATIVE NEGATIVE Urine Bilirubin NEGATIVE NEGATIVE mg/dL Urine Urobilinogen 0.2 0.2-1.0 mg/dL Urine Leukocyte Esterase 250 H NEGATIVE [place]/uL Urine RBC 0-1 0-1 /HPF Urine WBC 11-25 H 0-1 /HPF Urine Squamous Epithelial Cells RARE 0-2 /HPF Urine Bacteria RARE None Seen /HPF White Blood Count 5.7 4.8-10.8 K/uL Red Blood Count 4.51 4.00-5.50 MIL/uL Hemoglobin 13.4 12.0-16.0 g/dL Hematocrit 40.6 36-48 % Mean Corpuscular Volume 90.0 79-99 fL Mean Corpuscular Hemoglobin 29.7 27.0-33.0 pg Mean Corpuscular Hemoglobin Concent 33.0 32.0-36.0 g/dL Red Cell Distribution Width 14.1 11.0-15.5 % Platelet Count 202 130-400 K/uL Mean Platelet Volume 9.6 7.5-10.5 fL Immature Granulocyte % (Auto) 0.2 0-1 % Neutrophils (%) (Auto) 44.0 40.0-77.0 % Lymphocytes (%) (Auto) 45.0 21.0-51.0 % Monocytes (%) (Auto) 7.2 3.0-13.0 % Eosinophils (%) (Auto) 3.4 0.0-8.0 % Basophils (%) (Auto) 0.2 0.0-5.0 % Neutrophils # (Auto) 2.5 1.8-7.7 K/uL Lymphocytes # (Auto) 2.6 1.0-4.8 K/uL Monocytes # (Auto) 0.4 0.1-1.0 K/uL Eosinophils # (Auto) 0.19 0.00-0.70 K/uL Basophils # (Auto) 0.01 0.00-0.20 K/uL Absolute Immature Granulocyte (auto 0.01 0-1 K/uL Nucleated Red Blood Cells 0.0 0.0-0.19 % Sodium Level 138 136-145 mmol/L Potassium Level 3.7 3.5-5.1 mmol/L Chloride Level 104 101-111 mmol/L Carbon Dioxide Level 30 21-32 mmol/L Blood Urea Nitrogen 6 L 7-18 mg/dL Creatinine 0.6 0.5-1.0 mg/dL Glomerular Filtration Rate Calc 105 >90 mL/min Random Glucose 253 H 70-105 mg/dL Total Calcium 8.3 L 8.5-10.1 mg/dL Total Bilirubin 0.2 0.2-1.0 mg/dL Aspartate Amino Transf (AST/SGOT) 18 10-37 U/L Alanine Aminotransferase (ALT/SGPT) 32 12-78 U/L Alkaline Phosphatase 85 50-136 U/L Total Protein 5.5 L 6.0-8.3 g/dL Albumin 2.6 L 3.5-5.0 g/dL Current Medications Medications (Trade) Dose Ordered Sig/Zach Route PRN Reason Start Time Stop Time Status Last Admin Dose Admin Albuterol Sulfate (Proventil 0.083% 2.5mg/3ml) 2.5 mg Q6H IH 10/17/24 15:00 10/17/24 15:47 DC Albuterol Sulfate (Proventil 0.083% 2.5mg/3ml) 2.5 mg V2DSPSY IH 10/17/24 18:00 11/16/24 14:59 10/20/24 07:35 2.5 MG Aspirin (Aspirin 81mg Ec Tab) 81 mg DAILY PO 10/18/24 09:00 11/17/24 08:59 10/19/24 08:30 81 MG Atorvastatin Calcium (LIPItor 10MG) 40 mg HS PO 10/17/24 21:00 10/20/24 07:32 DC 10/19/24 19:18 40 MG Atorvastatin Calcium (LIPItor 40MG) 40 mg HS PO 10/20/24 21:00 11/16/24 20:59 Calcium Carbonate (Tums 500 Mg Chew Tab) 1 tab TID PRN PO INDIGESTION 10/17/24 15:00 11/16/24 14:59 Ceftriaxone Sodium 1 gm/ Sodium Chloride 50 ml @ 100 mls/hr BID IV 10/17/24 09:00 10/17/24 02:26 DC Ceftriaxone Sodium (ROCEphine 1G INJ) 1 gm BID IVPB 10/17/24 09:00 10/27/24 08:59 10/19/24 19:19 1 GM Citalopram Hydrobromide (CeleXA 20MG TAB) 40 mg DAILY PO 10/18/24 09:00 11/17/24 08:59 10/19/24 08:30 40 MG Dextrose (D50w) 50 ml AD PRN IV HYPOGLYCEMIA PROTOCOL 10/17/24 03:00 11/16/24 02:59 Gabapentin (NEURontin 300 MG CAP) 300 mg BID PO 10/17/24 21:00 11/16/24 20:59 10/19/24 19:19 300 MG Glucagon (Glucagon 1mg Kit) 1 mg AD PRN IM HYPOGLYCEMIA PROTOCOL 10/17/24 03:00 11/16/24 02:59 Insulin Glargine (LANtus 100 UNITS/ML 10 ML VIAL) 25 units DAILY SQ 10/18/24 09:00 10/19/24 06:45 DC 10/18/24 09:08 25 UNITS Insulin Glargine (LANtus 100 UNITS/ML 10 ML VIAL) 30 units DAILY SQ 10/19/24 09:00 11/18/24 08:59 10/19/24 08:43 30 UNITS Insulin Human Regular (humuLIN R 100 UNIT/ML 3ML) 5 unit TIDAC SQ 10/18/24 07:30 10/19/24 06:45 DC 10/19/24 06:02 5 UNIT Insulin Human Regular (humuLIN R 100 UNIT/ML 3ML) 7 unit TIDAC SQ 10/19/24 07:30 10/20/24 07:30 DC 10/20/24 06:04 7 UNIT Insulin Human Regular (humuLIN R 100 UNIT/ML 3ML) 10 unit TIDAC SQ 10/20/24 11:30 11/19/24 11:29 Insulin Human Regular (humuLIN R 100 UNIT/ML 3ML) INSULIN SLIDING SCAL... ACHS SQ 10/17/24 04:30 10/17/24 19:21 DC 10/17/24 16:31 7 UNIT Insulin Human Regular (humuLIN R 100 UNIT/ML 3ML) INSULIN SLIDING SCAL... ACHS SQ 10/17/24 07:30 10/17/24 04:08 DC Insulin Human Regular (humuLIN R 100 UNIT/ML 3ML) INSULIN SLIDING SCAL... ACHS SQ 10/17/24 16:30 10/17/24 19:16 DC 10/17/24 16:35 7 UNIT Insulin Human Regular (humuLIN R 100 UNIT/ML 3ML) INSULIN SLIDING SCAL... ACHS SQ 10/17/24 21:00 10/17/24 21:52 DC Insulin Human Regular (humuLIN R 100 UNIT/ML 3ML) INSULIN SLIDING SCAL... ACHS SQ 10/18/24 07:30 10/17/24 22:49 DC Insulin Human Regular (humuLIN R 100 UNIT/ML 3ML) INSULIN SLIDING SCAL... ACHS SQ 10/19/24 21:00 11/16/24 20:59 10/20/24 06:06 4 UNIT Insulin Human Regular (humuLIN R 100 UNIT/ML 3ML) INSULIN SLIDING SCAL... Q6H6 SQ 10/18/24 00:00 10/17/24 22:49 DC Insulin Human Regular (humuLIN R 100 UNIT/ML 3ML) INSULIN SLIDING SCAL... Q6H6 SQ 10/18/24 00:00 10/19/24 19:40 DC 10/19/24 16:56 4 UNIT Lactulose (Constulose 20gm/ 30ml Udcup) 20 gm BID PRN PO CONSTIPATION 10/18/24 19:00 11/17/24 18:59 Losartan Potassium (CozAAR 50 mg TAB) 50 mg DAILY PO 10/18/24 09:00 11/17/24 08:59 10/19/24 08:31 50 MG Magnesium Sulfate 50 ml @ 0 mls/hr PROTOCOL PRN IV OTHER [SEE ORDER COMMENTS] 10/17/24 03:00 10/20/24 07:33 DC Magnesium Sulfate 50 ml @ 0 mls/hr PROTOCOL PRN IV Diarrhea 10/17/24 15:00 11/16/24 14:59 Miscellaneous Medication (Albuterol Sulfate (Proventil Hfa)) 2 puff Q6H IH 10/17/24 15:00 10/17/24 14:49 DC Ondansetron HCl (zoFRAN 4MG INJ) 4 mg Q6H PRN IV NAUSEA/VOMITING 10/17/24 02:30 11/16/24 02:29 10/19/24 03:18 4 MG Pantoprazole Sodium (PROTonix 40MG INJ) 40 mg DAILY IVP 10/17/24 09:00 11/16/24 08:59 10/19/24 08:32 40 MG Polyethylene Glycol (MIRalax 3350 17 GM POWD.PACK) 17 gm DAILY PO 10/19/24 09:00 11/18/24 08:59 10/19/24 08:31 17 GM Potassium Chloride 100 ml @ 50 mls/hr AD PRN IV POTASSIUM PROTOCOL 10/17/24 03:00 10/20/24 07:33 DC Potassium Chloride 100 ml @ 100 mls/hr AD PRN IV POTASSIUM PROTOCOL 10/17/24 22:30 11/16/24 22:29 Potassium Chloride (K-Dur/Klor-Con 20meq) 20 meq AD PRN PO POTASSIUM PROTOCOL 10/17/24 22:30 11/16/24 22:29 10/17/24 23:57 20 MEQ Potassium Chloride (KCl 10% Elixir 20meq/15ml) 20 meq AD PRN PO POTASSIUM PROTOCOL 10/17/24 22:30 11/16/24 22:29 Quetiapine Fumarate (SEROquel 100 mg TAB) 400 mg HS PO 10/17/24 21:00 11/16/24 20:59 10/19/24 19:18 400 MG Sodium Chloride 1,000 ml @ 75 mls/hr [id number] IV 10/17/24 02:30 10/18/24 19:36 DC 10/17/24 23:46 75 MLS/HR Trazodone HCl (DesyREL/OlepTRO) 50 mg HS PO 10/17/24 21:00 11/16/24 20:59 10/19/24 19:19 50 MG Diagnostics / Radiology: [COPY/PASTE HERE IF NO REPORTS PLEASE DELETE SECTION] Assessment: N/V Diarrhea Abdominal pain Abnormal imaging revealing small bowel dilation Plan: EGD in am Patient has long-standing hx of diarrhea with negative workup Diarrhea likely related to bile-acid diarrhea Start trial of cholestyramine if diarrhea persists Continue GI prophylaxis Avoid NSAIDs Antireflux measures Monitor H&H and transfuse as needed Call with questions, concerns or change in clinical status Patient to follow-up at clinic post discharge Thank you for this consult BECKER,FADI A [employer] Oct 20, 2024 09:09
[2024-10-20] MEDS: INSULIN humuLIN R 100 UNIT/ML 3ML SQ SCH (12:02)
[2024-10-20 15:14] LABS: BASOPHILS # (AUTO) 0.02 K/uL (0.00-0.20); BASOPHILS % (AUTO) 0.3 % (0.0-5.0); EOSINOPHILS # (AUTO) 0.17 K/uL (0.00-0.70); EOSINOPHILS % (AUTO) 2.8 % (0.0-8.0); HEMATOCRIT 41.2 % (36-48); IMMATURE GRANULOCYTE ABSOLUTE 0.02 K/uL (0-1); LYMPHOCYTES # (AUTO) 2.4 K/uL (1.0-4.8); LYMPHOCYTES % (AUTO) 40.6 % (21.0-51.0); MEAN CORPUSCULAR HEMOGLOBIN 29.7 pg (27.0-33.0); MEAN CORPUSCULAR HGB CONC 32.8 g/dL (32.0-36.0); MEAN CORPUSCULAR VOLUME 90.7 fL (79-99); MONOCYTES # (AUTO) 0.3 K/uL (0.1-1.0); MONOCYTES % (AUTO) 5.3 % (3.0-13.0); NEUTROPHILS % (AUTO) 50.7 % (40.0-77.0); PLATELET COUNT (AUTO) 194 K/uL (130-400); RED BLOOD CELL COUNT(AUTO) 4.54 MIL/uL (4.00-5.50); RED CELL DISTRIBUTION WIDTH 14.2 % (11.0-15.5)
[2024-10-20 15:34] LABS: ALBUMIN 2.5 g/dL (3.5-5.0); BILIRUBIN,TOTAL 0.2 mg/dL (0.2-1.0); CREATININE 0.5 mg/dL (0.5-1.0); POTASSIUM 4.1 mmol/L (3.5-5.1); TOTAL PROTEIN, SERUM 5.2 g/dL (6.0-8.3)
--- NOTE | 2024-10-20 16:47 | PN ---
endocrinology progress note Date of Service: Oct 20, 2024 subjective: glucose runs greater than 200 mg/dl hba1c 10.7%, she has dm-2 for many years. she takes only metformin 1000 mg bid at home. glucose are still high, so insulin adjusted. PAST MEDICAL HISTORY: [ diabetes, hypertension, bipolar disorder and hyperlipidemia] PAST SURGICAL HISTORY: [ Umbilical hernia repair and hysterectomy ] PAST SOCIAL HISTORY: [ Patient lives alone. Patient denies alcohol tobacco and recreational drug use ] FAMILY HISTORY: [ Stroke, hypertension and diabetes ] Coded Allergies: No Known Drug Allergies (Verified Allergy, Severe, 01/05/16) ASSESSMENT: Hyperglycemia secondary to uncontrolled diabetes POA hba1c 10.7% hba1c 10.7%, she has dm-2 for many years. she takes only metformin 1000 mg bid at home. glucose runs greater than 200 mg/dl. Acute urinary tract infection POA Suspected Diabetic gastroparesis POA Hyponatremia POA Morbid obesity POA Hypertension POA Hyperlipidemia POA PLAN: increase lantus to 35 units daily increase regular insulin to 13 units qac before meals continue medium dose ssi monitor glucose qx6 hourly patient will need insulin at discharge. Vitals/Labs Vital Signs Date Time Temp Pulse Resp B/P (MAP) Pulse Ox O2 Delivery O2 Flow Rate FiO2 10/20/24 16:00 97.9 70 20 115/60 92 Room Air 10/20/24 08:30 21 10/19/24 20:00 0 Laboratory Tests 10/20/24 14:53 Medications Current Medications Ondansetron HCl 4 mg ONCE ONCE IVP Last administered on 10/17/24at 00:39; Start 10/17/24 at 00:00; Stop 10/17/24 at 00:01; Status DC Ketorolac Tromethamine 30 mg ONCE ONCE IVP Last administered on 10/17/24at 00:39; Start 10/17/24 at 00:00; Stop 10/17/24 at 00:01; Status DC Ceftriaxone Sodium 1 gm ONCE ONCE IVPB Last administered on 10/17/24at 02:32; Start 10/17/24 at 01:30; Stop 10/17/24 at 01:31; Status DC Ondansetron HCl 4 mg Q6H PRN IV Last administered on 10/19/24at 03:18; Start 10/17/24 at 02:30; Stop 11/16/24 at 02:29 Sodium Chloride 1,000 ml @ 75 mls/hr [id number] IV Last administered on 10/17/24at 23:46; Start 10/17/24 at 02:30; Stop 10/18/24 at 19:36; Status DC Ceftriaxone Sodium 1 gm/ Sodium Chloride 50 ml @ 100 mls/hr BID IV; Start 10/17/24 at 09:00; Stop 10/17/24 at 02:26; Status DC Ceftriaxone Sodium 1 gm BID IVPB Last administered on 10/20/24at 08:27; Start 10/17/24 at 09:00; Stop 10/27/24 at 08:59 Pantoprazole Sodium 40 mg DAILY IVP Last administered on 10/20/24at 08:27; Start 10/17/24 at 09:00; Stop 11/16/24 at 08:59 Insulin Human Regular INSULIN SLIDING SCAL... ACHS SQ; Start 10/17/24 at 07:30; Stop 10/17/24 at 04:08; Status DC Dextrose 50 ml AD PRN IV; Start 10/17/24 at 03:00; Stop 11/16/24 at 02:59 Glucagon 1 mg AD PRN IM; Start 10/17/24 at 03:00; Stop 11/16/24 at 02:59 Magnesium Sulfate 50 ml @ 0 mls/hr PROTOCOL PRN IV; Start 10/17/24 at 03:00; Stop 10/20/24 at 07:33; Status DC Potassium Chloride 100 ml @ 50 mls/hr AD PRN IV; Start 10/17/24 at 03:00; Stop 10/20/24 at 07:33; Status DC Insulin Human Regular INSULIN SLIDING SCAL... ACHS SQ Last administered on 10/17/24at 16:31; Start 10/17/24 at 04:30; Stop 10/17/24 at 19:21; Status DC Ketorolac Tromethamine 15 mg ONCE ONCE IV Last administered on 10/17/24at 04:15; Start 10/17/24 at 04:30; Stop 10/17/24 at 04:32; Status DC Iohexol 35,000 mg STK-MED ONCE IV; Start 10/17/24 at 09:49; Stop 10/17/24 at 09:50; Status DC Insulin Human Regular INSULIN SLIDING SCAL... ACHS SQ Last administered on 10/17/24at 16:35; Start 10/17/24 at 16:30; Stop 10/17/24 at 19:16; Status DC Magnesium Sulfate 50 ml @ 0 mls/hr PROTOCOL PRN IV; Start 10/17/24 at 15:00; Stop 11/16/24 at 14:59 Aspirin 81 mg DAILY PO Last administered on 10/20/24at 08:27; Start 10/18/24 at 09:00; Stop 11/17/24 at 08:59 Atorvastatin Calcium 40 mg HS PO Last administered on 10/19/24at 19:18; Start 10/17/24 at 21:00; Stop 10/20/24 at 07:32; Status DC Gabapentin 300 mg BID PO Last administered on 10/20/24at 08:27; Start 10/17/24 at 21:00; Stop 11/16/24 at 20:59 Losartan Potassium 50 mg DAILY PO Last administered on 10/20/24at 08:27; Start 10/18/24 at 09:00; Stop 11/17/24 at 08:59 Trazodone HCl 50 mg HS PO Last administered on 10/19/24at 19:19; Start 10/17/24 at 21:00; Stop 11/16/24 at 20:59 Miscellaneous Medication 2 puff Q6H IH; Start 10/17/24 at 15:00; Stop 10/17/24 at 14:49; Status DC Calcium Carbonate 1 tab TID PRN PO; Start 10/17/24 at 15:00; Stop 11/16/24 at 14:59 Citalopram Hydrobromide 40 mg DAILY PO Last administered on 10/20/24at 08:27; Start 10/18/24 at 09:00; Stop 11/17/24 at 08:59 Quetiapine Fumarate 400 mg HS PO Last administered on 10/19/24at 19:18; Start 10/17/24 at 21:00; Stop 11/16/24 at 20:59 Albuterol Sulfate 2.5 mg Q6H IH; Start 10/17/24 at 15:00; Stop 10/17/24 at 15:47; Status DC Albuterol Sulfate 2.5 mg [id number] IH Last administered on 10/20/24at 11:30; Start 10/17/24 at 18:00; Stop 11/16/24 at 14:59 Insulin Human Regular INSULIN SLIDING SCAL... ACHS SQ; Start 10/17/24 at 21:00; Stop 10/17/24 at 21:52; Status DC Insulin Human Regular INSULIN SLIDING SCAL... Q6H6 SQ Last administered on 10/19/24at 16:56; Start 10/18/24 at 00:00; Stop 10/19/24 at 19:40; Status DC Potassium Chloride 100 ml @ 100 mls/hr AD PRN IV; Start 10/17/24 at 22:30; Stop 11/16/24 at 22:29 Potassium Chloride 20 meq AD PRN PO; Start 10/17/24 at 22:30; Stop 11/16/24 at 22:29 Potassium Chloride 20 meq AD PRN PO Last administered on 10/17/24at 23:57; Start 10/17/24 at 22:30; Stop 11/16/24 at 22:29 Potassium Chloride 20 meq STK-MED ONCE PO Last administered on 10/17/24at 22:29; Start 10/17/24 at 22:09; Stop 10/17/24 at 22:10; Status DC Insulin Human Regular INSULIN SLIDING SCAL... ACHS SQ; Start 10/18/24 at 07:30; Stop 10/17/24 at 22:49; Status DC Insulin Human Regular INSULIN SLIDING SCAL... Q6H6 SQ; Start 10/18/24 at 00:00; Stop 10/17/24 at 22:49; Status DC Insulin Glargine 25 units DAILY SQ Last administered on 10/18/24at 09:08; Start 10/18/24 at 09:00; Stop 10/19/24 at 06:45; Status DC Insulin Human Regular 5 unit TIDAC SQ Last administered on 10/19/24at 06:02; Start 10/18/24 at 07:30; Stop 10/19/24 at 06:45; Status DC Polyethylene Glycol 17 gm DAILY PO Last administered on 10/20/24at 08:27; Start 10/19/24 at 09:00; Stop 11/18/24 at 08:59 Lactulose 20 gm BID PRN PO; Start 10/18/24 at 19:00; Stop 11/17/24 at 18:59 Insulin Glargine 30 units DAILY SQ Last administered on 10/20/24at 08:28; Start 10/19/24 at 09:00; Stop 11/18/24 at 08:59 Insulin Human Regular 7 unit TIDAC SQ Last administered on 10/20/24at 06:04; Start 10/19/24 at 07:30; Stop 10/20/24 at 07:30; Status DC Insulin Human Regular INSULIN SLIDING SCAL... ACHS SQ Last administered on 10/20/24at 16:34; Start 10/19/24 at 21:00; Stop 11/16/24 at 20:59 Insulin Human Regular 10 unit TIDAC SQ Last administered on 10/20/24at 16:34; Start 10/20/24 at 11:30; Stop 11/19/24 at 11:29 Atorvastatin Calcium 40 mg HS PO; Start 10/20/24 at 21:00; Stop 11/16/24 at 20:59 DEEPTHI REICH MD Oct 20, 2024 16:47
--- NOTE | 2024-10-20 19:58 | PN ---
[facility] PROGRESS NOTE Date of Service: Oct 20, 2024 Time of Service: 19:57 SUBJECTIVE: This is 54 years old female with past medical history of diabetes, hypertension, bipolar disorder and hyperlipidemia who was brought by EMS to the ED for complaints of abdominal pain associated with nausea,vomiting and diarrhea.which started yesterday.Patient also reports she has dark vomitus and her stool is very watery and she started having subjective fever and chills today.Patient also reports she is unable to keep anything down so she decided to come to the ED .Patent reports she was here last 10/13 2024 for complaints of abdominal; painand was found she has UTI and was sent home on Antibiotic. Seen and examined patient in the ER awake,alert and coherent.Patient continue to complain of abdominal pain7/10 pain level.Patient denies sore throat,cough,chest pain,palpitation and shortness of breath. Latest vital signs temperature 98.1, heart rate 76, respiration 22, blood pressure 124/41 saturation 96% on room air. Labs: CBC is normal. Sodium 133, potassium 4.4 chloride 99, glucose 309 total calcium 8.4. There was a CT abdomen and pelvis without contrast done on October 13, 2024 which revealed bilateral adrenal adenoma. Bilateral renal pelvic stones without hydronephrosis. No ascites. While in the ER patient received Rocephin 1 g IV, Toradol 30 mg IV and Zofran 4 mg IV. We will admit patient for further medical management. 10/17/2024 The patient is a poor historian and provides an inconsistent account of symptoms. She initially reports persistent diarrhea for a few weeks but later states she sometimes does not have a bowel movement for up to 6 days before. Also endorses unintentional weight loss and poor oral intake over the past several weeks. On bedside examination the patient states that her abdominal discomfort slightly improved. But stools have early satiety nausea vomiting. On physical examination her blood pressure is 157/82 mmHg. The patient appears ill and dehydrated. And the abdominal examination has mild diffuse tenderness. Her electrolytes revealed a chloride of 100 that is slow and a glucose 2that is increased and HbA1c is 10.7 elevated stool occult blood test is negative and CT abdomen pelvis no acute findings. The patient is closely monitored and endocrinology gastroenterology consult has been placed and a nuclear emptying gastric emptying study has been ordered to evaluate for gastroparesis based on her chronic diabetes mellitus and poor management.Abdominal x-ray revealed mild small bowel dilation. 10/18/24 patient reports improvement in her nausea. She is down for her gastric emptying study today. She does report some constipation and p.r.n. laxatives will be used. We will recheck her labs 10/19/24 patient is seen and examined. Case discussed with RN. She has abdominal pain and nausea today 10/20/24 patient is seen and examined. Case discussed with RN. she is feeling bettertoday/will advance diet REVIEW OF SYSTEMS CONSTITUTIONAL: Complained of fever and chills Denies fevers, chills, or night sweats. No unintentional weight loss reported. NEUROLOGICAL: Denies headache, amaurosis fugax, motor weakness, sensory deficit, vertigo/spinning sensation, gait abnormalities, or tremors. ENT: No hearing loss, otalgia, otorrhea, rhinitis, rhinorrhea, hoarseness, or sore throat. CARDIOVASCULAR: Denies any exertional angina, dyspnea on exertion, orthopnea, paroxysmal nocturnal dyspnea, palpitations, life-threatening arrhythmias, claudication. PULMONARY: Denies any shortness of breath, cough, phlegm/sputum, hemoptysis, pleuritic chest pain. SLEEP: Denies morning headaches, daytime somnolence or napping. Denies difficulty falling asleep, staying asleep, waking from sleep. Denies knowledge of snoring. GASTROINTESTINAL: Complained of abdominal pain, nausea and vomiting and diarrhea Denies any type of dysphagia to either liquids or solids. Denies pyrosis, early satiety, constipation, or changes in stool consistency or caliber. Denies coffee-ground emesis, hematemesis, hematochezia, or melanotic stools. GENITOURINARY: Denies frequency, urgency, nocturia, hematuria or incontinence (Storage/Irritative symptoms.) Low urinary stream, straining to void, urinary intermittency or hesitancy, splitting of the voiding stream, terminal dribbling. ENDOCRINOLOGIC: Denies polyuria, polydipsia, polyphagia or heat/cold intolerances. HEMATOLOGIC: Denies thrombophilia/previous clots, or coagulopathy/bleeding disorders. ONCOLOGIC: Denies personal history of malignancy. DERMATOLOGIC: Denies rashes or pruritus. PSYCHIATRIC: Denies any suicidal or homicidal ideation. Denies hallucinations. PHYSICAL EXAM GENERAL APPEARANCE: The patient is awake, alert, and oriented, in no acute cardiopulmonary distress. NEUROLOGICAL: Cranial nerves II-XII grossly intact. Motor is 5/5 in bilateral upper and lower extremities proximal to distal. No sensory deficits. HEENT: Face is symmetric. Pupils are equal and reactive. Extraocular movements are intact. NECK: Supple. No JVD. No thyromegaly. No submental, submandibular, pre- /postauricular, occipital or supraclavicular lymphadenopathy. CHEST: Normal chest expansion. No Telemetry. LUNGS: Absence of any rales, rhonchi or any wheezing. CARDIOVASCULAR: Regular. S1 and S2 normal. No appreciable rubs, murmurs or gallops. ABDOMEN: Abdominal tenderness around mid abdomen on palpation Soft and nondistended. There is no rebound, voluntary guarding, or rigidity. : Deferred. No Smith. EXTREMITIES: Non-edematous and not cyanotic. No clubbing. Good capillary refill. SKIN: No skin breakdown. Vital Signs (last 8hr) Date Time Temp Pulse Resp B/P (MAP) Pulse Ox O2 Delivery O2 Flow Rate FiO2 10/20/24 16:00 97.9 70 20 115/60 92 Room Air 10/20/24 12:00 98.1 63 20 115/55 95 Room Air LABS: Laboratory: Test 10/20/24 15:32 10/20/24 14:53 10/19/24 16:30 Range/Units Whole Blood Glucose 269 H 70-110 MG/DL White Blood Count 6.0 4.8-10.8 K/uL Red Blood Count 4.54 4.00-5.50 MIL/uL Hemoglobin 13.5 12.0-16.0 g/dL Hematocrit 41.2 36-48 % Mean Corpuscular Volume 90.7 79-99 fL Mean Corpuscular Hemoglobin 29.7 27.0-33.0 pg Mean Corpuscular Hemoglobin Concent 32.8 32.0-36.0 g/dL Red Cell Distribution Width 14.2 11.0-15.5 % Platelet Count 194 130-400 K/uL Mean Platelet Volume 10.0 7.5-10.5 fL Immature Granulocyte % (Auto) 0.3 0-1 % Neutrophils (%) (Auto) 50.7 40.0-77.0 % Lymphocytes (%) (Auto) 40.6 21.0-51.0 % Monocytes (%) (Auto) 5.3 3.0-13.0 % Eosinophils (%) (Auto) 2.8 0.0-8.0 % Basophils (%) (Auto) 0.3 0.0-5.0 % Neutrophils # (Auto) 3.0 1.8-7.7 K/uL Lymphocytes # (Auto) 2.4 1.0-4.8 K/uL Monocytes # (Auto) 0.3 0.1-1.0 K/uL Eosinophils # (Auto) 0.17 0.00-0.70 K/uL Basophils # (Auto) 0.02 0.00-0.20 K/uL Absolute Immature Granulocyte (auto 0.02 0-1 K/uL Nucleated Red Blood Cells 0.0 0.0-0.19 % Sodium Level 139 136-145 mmol/L Potassium Level 4.1 3.5-5.1 mmol/L Chloride Level 106 101-111 mmol/L Carbon Dioxide Level 32 21-32 mmol/L Blood Urea Nitrogen 7 7-18 mg/dL Creatinine 0.5 0.5-1.0 mg/dL Glomerular Filtration Rate Calc 110 >90 mL/min Random Glucose 294 H 70-105 mg/dL Total Calcium 8.0 L 8.5-10.1 mg/dL Total Bilirubin 0.2 0.2-1.0 mg/dL Aspartate Amino Transf (AST/SGOT) 18 10-37 U/L Alanine Aminotransferase (ALT/SGPT) 29 12-78 U/L Alkaline Phosphatase 85 50-136 U/L Total Protein 5.2 L 6.0-8.3 g/dL Albumin 2.5 L 3.5-5.0 g/dL Urine Color LIGHT-YELLOW YELLOW Urine Appearance CLEAR CLEAR Urine pH 5.0 5.0-8.0 Urine Specific [place] 1.004 1.001-1.031 Urine Protein NEGATIVE NEGATIVE mg/dL Urine Glucose (UA) 500 H NEGATIVE mg/dL Urine Ketones NEGATIVE NEGATIVE mg/dL Urine Occult Blood NEGATIVE NEGATIVE Urine Nitrate NEGATIVE NEGATIVE Urine Bilirubin NEGATIVE NEGATIVE mg/dL Urine Urobilinogen 0.2 0.2-1.0 mg/dL Urine Leukocyte Esterase 250 H NEGATIVE Pennie/uL Urine RBC 0-1 0-1 /HPF Urine WBC 11-25 H 0-1 /HPF Urine Squamous Epithelial Cells RARE 0-2 /HPF Urine Bacteria RARE None Seen /HPF Current Medications Medications (Trade) Dose Ordered Sig/Zcah Route PRN Reason Start Time Stop Time Status Last Admin Dose Admin Albuterol Sulfate (Proventil 0.083% 2.5mg/3ml) 2.5 mg Q6H IH 10/17/24 15:00 10/17/24 15:47 DC Albuterol Sulfate (Proventil 0.083% 2.5mg/3ml) 2.5 mg [id number] IH 10/17/24 18:00 11/16/24 14:59 10/20/24 11:30 2.5 MG Aspirin (Aspirin 81mg Ec Tab) 81 mg DAILY PO 10/18/24 09:00 11/17/24 08:59 10/20/24 08:27 81 MG Atorvastatin Calcium (LIPItor 10MG) 40 mg HS PO 10/17/24 21:00 10/20/24 07:32 DC 10/19/24 19:18 40 MG Atorvastatin Calcium (LIPItor 40MG) 40 mg HS PO 10/20/24 21:00 11/16/24 20:59 Calcium Carbonate (Tums 500 Mg Chew Tab) 1 tab TID PRN PO INDIGESTION 10/17/24 15:00 11/16/24 14:59 Ceftriaxone Sodium 1 gm/ Sodium Chloride 50 ml @ 100 mls/hr BID IV 10/17/24 09:00 10/17/24 02:26 DC Ceftriaxone Sodium (ROCEphine 1G INJ) 1 gm BID IVPB 10/17/24 09:00 10/27/24 08:59 10/20/24 08:27 1 GM Citalopram Hydrobromide (CeleXA 20MG TAB) 40 mg DAILY PO 10/18/24 09:00 11/17/24 08:59 10/20/24 08:27 40 MG Dextrose (D50w) 50 ml AD PRN IV HYPOGLYCEMIA PROTOCOL 10/17/24 03:00 11/16/24 02:59 Gabapentin (NEURontin 300 MG CAP) 300 mg BID PO 10/17/24 21:00 11/16/24 20:59 10/20/24 08:27 300 MG Glucagon (Glucagon 1mg Kit) 1 mg AD PRN IM HYPOGLYCEMIA PROTOCOL 10/17/24 03:00 11/16/24 02:59 Insulin Glargine (LANtus 100 UNITS/ML 10 ML VIAL) 25 units DAILY SQ 10/18/24 09:00 10/19/24 06:45 DC 10/18/24 09:08 25 UNITS Insulin Glargine (LANtus 100 UNITS/ML 10 ML VIAL) 30 units DAILY SQ 10/19/24 09:00 11/18/24 08:59 10/20/24 08:28 30 UNITS Insulin Human Regular (humuLIN R 100 UNIT/ML 3ML) 5 unit TIDAC SQ 10/18/24 07:30 10/19/24 06:45 DC 10/19/24 06:02 5 UNIT Insulin Human Regular (humuLIN R 100 UNIT/ML 3ML) 7 unit TIDAC SQ 10/19/24 07:30 10/20/24 07:30 DC 10/20/24 06:04 7 UNIT Insulin Human Regular (humuLIN R 100 UNIT/ML 3ML) 10 unit TIDAC SQ 10/20/24 11:30 11/19/24 11:29 10/20/24 16:34 10 UNIT Insulin Human Regular (humuLIN R 100 UNIT/ML 3ML) INSULIN SLIDING SCAL... ACHS SQ 10/17/24 04:30 10/17/24 19:21 DC 10/17/24 16:31 7 UNIT Insulin Human Regular (humuLIN R 100 UNIT/ML 3ML) INSULIN SLIDING SCAL... ACHS SQ 10/17/24 07:30 10/17/24 04:08 DC Insulin Human Regular (humuLIN R 100 UNIT/ML 3ML) INSULIN SLIDING SCAL... ACHS SQ 10/17/24 16:30 10/17/24 19:16 DC 10/17/24 16:35 7 UNIT Insulin Human Regular (humuLIN R 100 UNIT/ML 3ML) INSULIN SLIDING SCAL... ACHS SQ 10/17/24 21:00 10/17/24 21:52 DC Insulin Human Regular (humuLIN R 100 UNIT/ML 3ML) INSULIN SLIDING SCAL... ACHS SQ 10/18/24 07:30 10/17/24 22:49 DC Insulin Human Regular (humuLIN R 100 UNIT/ML 3ML) INSULIN SLIDING SCAL... ACHS SQ 10/19/24 21:00 11/16/24 20:59 10/20/24 16:34 8 UNIT Insulin Human Regular (humuLIN R 100 UNIT/ML 3ML) INSULIN SLIDING SCAL... Q6H6 SQ 10/18/24 00:00 10/17/24 22:49 DC Insulin Human Regular (humuLIN R 100 UNIT/ML 3ML) INSULIN SLIDING SCAL... Q6H6 SQ 10/18/24 00:00 10/19/24 19:40 DC 10/19/24 16:56 4 UNIT Lactulose (Constulose 20gm/ 30ml Udcup) 20 gm BID PRN PO CONSTIPATION 10/18/24 19:00 11/17/24 18:59 Losartan Potassium (CozAAR 50 mg TAB) 50 mg DAILY PO 10/18/24 09:00 11/17/24 08:59 10/20/24 08:27 50 MG Magnesium Sulfate 50 ml @ 0 mls/hr PROTOCOL PRN IV OTHER [SEE ORDER COMMENTS] 10/17/24 03:00 10/20/24 07:33 DC Magnesium Sulfate 50 ml @ 0 mls/hr PROTOCOL PRN IV Diarrhea 10/17/24 15:00 11/16/24 14:59 Miscellaneous Medication (Albuterol Sulfate (Proventil Hfa)) 2 puff Q6H IH 10/17/24 15:00 10/17/24 14:49 DC Ondansetron HCl (zoFRAN 4MG INJ) 4 mg Q6H PRN IV NAUSEA/VOMITING 10/17/24 02:30 11/16/24 02:29 10/19/24 03:18 4 MG Pantoprazole Sodium (PROTonix 40MG INJ) 40 mg DAILY IVP 10/17/24 09:00 11/16/24 08:59 10/20/24 08:27 40 MG Polyethylene Glycol (MIRalax 3350 17 GM POWD.PACK) 17 gm DAILY PO 10/19/24 09:00 11/18/24 08:59 10/20/24 08:27 17 GM Potassium Chloride 100 ml @ 50 mls/hr AD PRN IV POTASSIUM PROTOCOL 10/17/24 03:00 10/20/24 07:33 DC Potassium Chloride 100 ml @ 100 mls/hr AD PRN IV POTASSIUM PROTOCOL 10/17/24 22:30 11/16/24 22:29 Potassium Chloride (K-Dur/Klor-Con 20meq) 20 meq AD PRN PO POTASSIUM PROTOCOL 10/17/24 22:30 11/16/24 22:29 10/17/24 23:57 20 MEQ Potassium Chloride (KCl 10% Elixir 20meq/15ml) 20 meq AD PRN PO POTASSIUM PROTOCOL 10/17/24 22:30 11/16/24 22:29 Quetiapine Fumarate (SEROquel 100 mg TAB) 400 mg HS PO 10/17/24 21:00 11/16/24 20:59 10/19/24 19:18 400 MG Sodium Chloride 1,000 ml @ 75 mls/hr [id number] IV 10/17/24 02:30 10/18/24 19:36 DC 10/17/24 23:46 75 MLS/HR Trazodone HCl (DesyREL/OlepTRO) 50 mg HS PO 10/17/24 21:00 11/16/24 20:59 10/19/24 19:19 50 MG DIAGNOSTICS / RADIOLOGY: [ ] ASSESSMENT: Hyperglycemia secondary to uncontrolled diabetesPOA Acute urinary tract infection POA Suspected Diabetic gastroparesis POA Partial small bowel obstruction SBO, POA Acute gastrointestinal dysmotility POA UNINTENTIONAL WEIGHT LOSS POA Hyponatremia POA Morbid obesity POA Hypertension POA Hyperlipidemia POA PLAN: We will admit patient in medical surgical floor We will keep patient nothing by mouth Sliding scale insulin a.c. and HS Gastric emptying study for delayed motility. Endocrinology consult has been placed for additional workup and poorly controlled diabetes mellitus. Zofran4 mg IV q.8h p.r.n. for nausea. Monitor sodium q.12h for electrolyte management. Electrolyte replacement per protocol. Stool studies for ova parasites C diff and occult blood has been ordered. Abdominal x-ray to evaluate for ileus. We will start NS @ 75 ml / hr x1 bag and re evaluate We will start patient on Rocephin 1 g IV b.i.d. for empiric coverage Repeat urine culture and sensitivity. We will start on Protonix 40 mg IV daily for GI prophylaxis Repeat abdominal x-ray in 12-24 hours to assess for progression of SBO. Serial abdominal exams q.4h and monitor for worsening pain, distention and peritoneal signs. We will add prn medication for fever,pain,cough and nausea Reconciled home medication. We will seek gastroenterology consultation Tylenol IV p.r.n. is being administered for patient's pain We will request labs in am Further orders to follow depending on above results Case discussed with attending physician and came up with above treatment and plan of care. ZARA ESCUDERO MD Oct 20, 2024 19:58
[2024-10-20] MEDS: atorVAStatin 40 MG TABLET PO SCH (20:36)
[2024-10-21] VITALS (22 sets, daily range): BP systolic 92–128; BP diastolic 47–69; PULSE 55–82; RESP 15–20; TEMP 97.3–97.9; O2SAT 96–100
[2024-10-21] MEDS: INSULIN humuLIN R 100 UNIT/ML 3ML SQ SCH (07:26)
[2024-10-21] MEDS: INSULIN GLARgine 100 UNITS/ML 10 ML VIAL SQ SCH (09:00)
[2024-10-21] MEDS ORDERED: proPOFol 10 MG/ML 20ML VIAL IV ONE (10:19)
[2024-10-21 11:26] LABS: BASOPHILS # (AUTO) 0.01 K/uL (0.00-0.20); BASOPHILS % (AUTO) 0.2 % (0.0-5.0); EOSINOPHILS # (AUTO) 0.16 K/uL (0.00-0.70); EOSINOPHILS % (AUTO) 2.9 % (0.0-8.0); HEMATOCRIT 44.4 % (36-48); IMMATURE GRANULOCYTE ABSOLUTE 0.01 K/uL (0-1); LYMPHOCYTES # (AUTO) 2.1 K/uL (1.0-4.8); LYMPHOCYTES % (AUTO) 37.7 % (21.0-51.0); MEAN CORPUSCULAR HEMOGLOBIN 29.5 pg (27.0-33.0); MEAN CORPUSCULAR HGB CONC 32.2 g/dL (32.0-36.0); MEAN CORPUSCULAR VOLUME 91.7 fL (79-99); MONOCYTES # (AUTO) 0.3 K/uL (0.1-1.0); MONOCYTES % (AUTO) 5.4 % (3.0-13.0); NEUTROPHILS % (AUTO) 53.6 % (40.0-77.0); PLATELET COUNT (AUTO) 177 K/uL (130-400); RED BLOOD CELL COUNT(AUTO) 4.84 MIL/uL (4.00-5.50); RED CELL DISTRIBUTION WIDTH 13.8 % (11.0-15.5); WHITE BLOOD COUNT (AUTO) 5.6 K/uL (4.8-10.8)
[2024-10-21 11:46] LABS: ALBUMIN 2.6 g/dL (3.5-5.0); BILIRUBIN,TOTAL 0.4 mg/dL (0.2-1.0); CREATININE 0.4 mg/dL (0.5-1.0); TOTAL PROTEIN, SERUM 5.8 g/dL (6.0-8.3)
[2024-10-21] MEDS ORDERED: INSU3INS3 SQ (15:59)
[2024-10-21] MEDS ORDERED: AMOX-426 PO (15:59)
--- NOTE | 2024-10-21 16:15 | DS ---
Discharge Summary Hospital Course Summary: This patient is a 54-year-old female with a history of diabetes mellitus, hypertension, hyperlipidemia, obesity and bipolar disorder who presented with abdominal pain, nausea vomiting and alternating constipation and diarrhea for several weeks. Initial laboratory workup revealed HbA1c of 10.7, glucose fluct uating [id number] and 3 not7 and mild hyponatremia with sodium of 1. Abdominal x-ray revealed mild small bowel dilation suggestive of early partial SBO versus ileus. EGD finding revealed a small hiatal hernia, moderate gastritis which was biopsied, mucosal changes suggestive of early Ernst's esophagus await pathology results. The GI workup for the symptoms revealed a negative gastroparesis on gastric emptying study. Bile acid diarrhea suspected due to persistent loose stools. Treatment provided during hospital course: Adjusted insulin regimen [id number] units daily plus regular [id number] units before meals. Continued medium dose sliding scale insulin SSI for correction. Blood glucose level improved to under 200 mg/deciliter prior to discharge. Small-bowel obstruction and gastroparesis manage: NPO initially transitioned to clear liquid diet and advanced diabetic friendly soft diet. IV fluids at NS75 mL/hour to maintain hydration was given. Serial abdominal x-rays were done no worsening of obstruction, symptoms improved with conservative management. Gastroenterology consulted recommended EGD and gastric emptying study for long-term management. UTI management: Rocephin 1 g was given for her urinary tract infection and was transitioned to A ugmentin b.i.d. into 7 days. Electrolyte and fluid replaced: Monitored sodium q.12h and replaced as needed. Maintain hydration with IV fluids. Gastritis, hiatal hernia and bile acid diarrhea treatment: Protonix 40 mg p.o. daily for gastritis and reflux prophylaxis. Avoid NSAIDs and aspirin. Trial of cholestyramine plan for bile acid diarrhea. Housing Relocation(s): Dilia Jenkins MD, Syed A MD Primary care physician : Chuck Hicks MD Admitting : Elias Olson MD Attending : Garrick Menjivar MD Procedure(s): PATIENT: CHANELL FAIR MR#: [id number] : 1970 SEX: F AGE: 54 LOCATION: [facility] ORDER [id number] STATUS: ADM IN REPORT#: [id number] SERVICE 0837 REASON: diarrhea ORDERING PHYSICIAN: FADI BECKER BILLBOARD INSTALLER PROCEDURE: ABD PELWWO - CT ABDOMEN/PELVIS W/WO CONTRAS CT ABDOMEN/PELVIS W/WO CONTRAS HISTORY: Diarrhea COMPARISON: 10/13/2024 TECHNIQUE: Multiple sequential axial images of the abdomen and pelvis were obtained from the dome of the diaphragm through symphysis pubis. Patient was given 100 cc of Omnipaque through intravenous route. Oral contrast was not given. FINDINGS: No pleural effusion is seen bilaterally. There is no evidence of parenchymal disease or pulmonary nodule of the visualized lower lungs. Degenerative changes of the thoracolumbar spine are present. The heart is not enlarged. Liver measured 22 cm. Spleen measured 12 cm. Postcholecystectomy changes are seen. The liver, spleen, adrenal glands and pancreas are unremarkable. There is no evidence of hydronephrosis bilaterally. No evidence of renal stone is seen. Fecal material is seen in the colon. There are normal size retroperitoneal and mesenteric lymph nodes. No ascites is seen. Atherosclerotic changes are present. Pelvic sidewalls are symmetric bilaterally. Bladder is poorly distended. IMPRESSION: 1. No acute findings.PATIENT: CHANELL FAIR MR#: [id number] : 1970 SEX: F AGE: 54 LOCATION: [facility] ORDER 1423 STATUS: ADM IN [facility] REPORT#: [id number] SERVICE 1408 REASON: Gastroparesis ORDERING PHYSICIAN: GRAY ROJAS MD PROCEDURE: ABD 1VW - ABD 1VW ABD 1VW HISTORY: Gastroparesis COMPARISON: None FINDINGS: A frontal projection of the abdomen was obtained. Mild small bowel dilatation is seen. Fecal material is seen in the colon. Degenerative changes of the thoracolumbar spine are noted. IMPRESSION: 1. Mild small bowel dilatation.PATIENT: CHANELL FAIR MR#: [id number] : 1970 SEX: F AGE: 54 LOCATION: [facility] ORDER [id number] STATUS: ADM IN REPORT#: [id number] SERVICE 2248 REASON: Small-bowel obstruction ORDERING PHYSICIAN: GRAY ROJAS MD PROCEDURE: ABD 1VW - ABD 1VW Exam Type: ABD 1VW Clinical Information: Small-bowel obstruction Comparison: None Findings: Abdomen demonstrates no evidence of pathologic calcification or soft tissue mass. There are no radiopacities to suggest calculous disease. The intestinal gas pattern is within normal limits without evidence of dilatation to suggest obstruction or adynamic ileus. The bony structures are unremarkable. IMPRESSION: Normal abdomen. DICTATED BY: JESSI HUTCHINSON MD DATE: 10/18/24852 ELECTRONICALLY SIGNED BY: JESSI HUTCHINSON MD DATE: 10/18/24855 PATIENT: CHANELL FAIR MR#: [id number] : 1970 SEX: F AGE: 54 LOCATION: [facility] ORDER 1423 STATUS: ADM IN REPORT#: [id number] SERVICE 1408 REASON: Diabetic gastroparesis ORDERING PHYSICIAN: GRAY ROJAS MD PROCEDURE: GASTEMP - NM GASTRIC EMPTYING STUDY NM GASTRIC EMPTYING STUDY HISTORY: Diabetic gastroparesis TECHNIQUE: 1.5 mCi of technetium 99 sulfur colloid was administered with scrambled egg.Sequential images were obtained and the gastric emptying calculated. FINDINGS: There is physiologic radiotracer activity in the stomach. Radiotracer activity is also seen in the small bowel. The linear fit T1/2 is 72 minutes. (Normal T1/2 is 90 min or less). IMPRESSION: No evidence of gastroparesis. Assessment/Plan: ASSESSMENT: Hyperglycemia secondary to uncontrolled diabetesPOA Acute urinary tract infection POA Suspected Diabetic gastroparesis POA Partial small bowel obstruction SBO, POA Acute gastrointestinal dysmotility POA UNINTENTIONAL WEIGHT LOSS POA Hyponatremia POA Morbid obesity POA Hypertension POA Bile acid diarrhea, POA Hyperlipidemia POA Diaphragmatic hernia without obstruction or gangrene, POA Gastritis, unspecified, without bleeding, POA Discharge Instructions: ADMISSION DATE : 10/17/2024 DISCHARGE DATE : 10/21/2024 DISPOSITION : Home CONDITION : Stable BROOM MACHINE OPERATOR(S) : Dilia Jenkins MD, Syed A MD Primary care physician : Chuck Hicks MD Admitting : Elias Olson MD Attending : Garrick Menjivar MD FOLLOW UP APPOINTMENT(s): PRIMARY CARE PROVIDER APPOINTMENT WITHIN 3-5 DAYS POST DISCHARGE. GASTROENTEROLOGY FOLLOW-UP APPOINTMENT IN1 WEEK TO DISCUSS EGD BIOPSY RESULTS AND LONG-TERM CARE MANAGEMENT. ENDOCRINOLOGY FOLLOW-UP WITHIN 2 WEEKS FOR DIABETES MANAGEMENT IMAGING(S) : Reports attached to summary. MICROBIOLOGY : Reports attached to summary. ACTIVITY : AD LEONARDO HOME MEDICATION : Continued TEACHING : Reinforced the importance of medication compliance and follow-up appointments. Home Medications: Active Scripts Cephalexin Monohydrate (Keflex) 500 Mg Cap, 1 CAP PO BID for 10 Days, #20 CAP 0 Refills Prov:SANGEETA GUILLAUME MD 10/13/24 Permethrin (Permethrin) 5 % Cream..g., 1 APPL TP ONCE for 1 Day, #60 GM 0 Refills massage into skin from head to soles of feet one time, leave on for 8-14 hours then remove by thorough washing Prov:NIDIA GONZALES [facility] 08/14/24 Nitrofurantoin Monohyd/M-Cryst (Macrobid 100 mg Capsule) 100 Mg Capsule, 1 CAP PO BID for 5 Days, #10 CAP 0 Refills Prov:NIDIA GONZALES BILLBOARD INSTALLER 08/14/24 Diclofenac Sodium (Voltaren Arthritis Pain) 1 % Gel..gram., 20 GM TP BID for 10 Days, #1 TUBE Prov:SANGEETA GUILLAUME MD 07/29/24 Cefpodoxime Proxetil (Cefpodoxime Proxetil) 100 Mg Tablet, 1 TAB PO BID for 7 Days, #14 TAB 0 Refills Prov:MARIA G NOLAN DO 06/10/24 Meloxicam (Meloxicam) 15 Mg Tablet, 15 MG PO DAILY PRN for PAIN for 10 Days, #10 TAB Prov:MARIA G NOLAN DO 06/10/24 Reported Medications Triamterene/Hydrochlorothiazid (Triamterene-Hctz 37.5-25 mg Cp) 37.5 Mg-25 Mg Capsule, 1 CAP PO DAILY for 30 Days, #30 CAP 0 Refills 10/17/24 Escitalopram Oxalate (Escitalopram Oxalate) 20 Mg Tablet, 1 TAB PO DAILY for 30 Days, #30 TAB 0 Refills 10/17/24 Glimepiride (Glimepiride) 4 Mg Tablet, 1 TAB PO DAILY for 30 Days, #30 TAB 0 Refills 10/17/24 Metformin HCl (Metformin HCl ER) 750 Mg Tab.er.24h, 1 TAB PO DAILY for 30 Days, #30 TAB 0 Refills 10/17/24 Atorvastatin Calcium (Atorvastatin Calcium) 10 Mg Tablet, 1 TAB PO HS for 30 Days, #30 TAB 0 Refills 10/17/24 Pioglitazone HCl (Pioglitazone HCl) 45 Mg Tablet, 1 TAB PO DAILY for 30 Days, #30 TAB 0 Refills 10/17/24 Quetiapine Fumarate (Quetiapine Fumarate) 400 Mg Tablet, 1 TAB PO HS for 30 Days, #30 TAB 0 Refills 10/17/24 Trazodone HCl (Trazodone HCl) 50 Mg Tablet, 1 TAB PO HS for 30 Days, #30 TAB 0 Refills 10/17/24 Calcium Carb/Magnesium Hydrox (Rolaids Chewable Tablet) 1 Each Tab.chew, 1 TAB PO TID PRN for INDIGESTION, TAB.CHEW 01/05/16 Naproxen (Naproxen) 375 Mg Tablet, 375 MG PO BID 01/05/16 Albuterol Sulfate (Proventil Hfa) 6.7 Gm Hfa.aer.ad, 2 PUFF IH Q6H 01/05/16 Quetiapine Fumarate (Quetiapine Fumarate) 300 Mg Tablet, 300 MG PO HS 01/05/16 Glipizide (Glipizide) 5 Mg Tablet, 5 MG PO ACBKFST 01/05/16 Cetirizine HCl (Cetirizine HCl) 10 Mg Tablet, 10 MG PO DAILY 01/05/16 Atorvastatin Calcium (Atorvastatin Calcium) 40 Mg Tablet, 40 MG PO DAILY 01/05/16 Metformin HCl (Metformin HCl) 500 Mg Tablet, 500 MG PO BIDMEALS 01/05/16 Bupropion HCl (Bupropion Xl) 150 Mg Tab.er.24h, 150 MG PO DAILY 01/05/16 Ibuprofen (Ibuprofen) 600 Mg Tablet, 600 MG PO Q6H PRN for PAIN 01/05/16 Fenofibrate Nanocrystallized (Fenofibrate) 145 Mg Tablet, 145 MG PO DAILY, TAB 01/05/16 Gabapentin (Gabapentin) 300 Mg Capsule, 300 MG PO BID 01/05/16 Aspirin (Aspirin EC) 81 Mg Tablet.dr, 81 MG PO DAILY 01/05/16 Losartan Potassium (Losartan Potassium) 50 Mg Tablet, 50 MG PO DAILY 01/05/16 New Medications: Amoxicillin/Potassium Clav (Augmentin 500-125 Tablet) 500 Mg-125 Mg Tablet 1 TAB PO BID PRN for Abdominal infection for 7 Days, #14 TAB 0 Refills Cholestyramine (Cholestyramine Resin) 5 Gm Powder 4 GM PO BID for Bile acid diarrhea for 30 Days, #240 GM 1 Refill Insulin Glargine,Hum.rec.anlog (Lantus Solostar) 100 Unit/Ml (3 Ml) Insuln.pen 30 UNIT SQ HS PRN for Hyperglycemia for 30 Days, #30 ML 2 Refills Continued Medications: Albuterol Sulfate (Proventil Hfa) 6.7 Gm Hfa.aer.ad 2 PUFF IH Q6H Aspirin (Aspirin EC) 81 Mg Tablet.dr 81 MG PO DAILY Atorvastatin Calcium (Atorvastatin Calcium) 40 Mg Tablet 40 MG PO DAILY Bupropion HCl (Bupropion Xl) 150 Mg Tab.er.24h 150 MG PO DAILY Calcium Carb/Magnesium Hydrox (Rolaids Chewable Tablet) 1 Each Tab.chew 1 TAB PO TID PRN for INDIGESTION, TAB.CHEW Cetirizine HCl (Cetirizine HCl) 10 Mg Tablet 10 MG PO DAILY Diclofenac Sodium (Voltaren Arthritis Pain) 1 % Gel..gram. 20 GM TP BID for 10 Days, #1 TUBE Escitalopram Oxalate (Escitalopram Oxalate) 20 Mg Tablet 1 TAB PO DAILY for 30 Days, #30 TAB 0 Refills Fenofibrate Nanocrystallized (Fenofibrate) 145 Mg Tablet 145 MG PO DAILY, TAB Gabapentin (Gabapentin) 300 Mg Capsule 300 MG PO BID Glimepiride (Glimepiride) 4 Mg Tablet 1 TAB PO DAILY for 30 Days, #30 TAB 0 Refills Glipizide (Glipizide) 5 Mg Tablet 5 MG PO ACBKFST Ibuprofen (Ibuprofen) 600 Mg Tablet 600 MG PO Q6H PRN for PAIN Losartan Potassium (Losartan Potassium) 50 Mg Tablet 50 MG PO DAILY Meloxicam (Meloxicam) 15 Mg Tablet 15 MG PO DAILY PRN for PAIN for 10 Days, #10 TAB Metformin HCl (Metformin HCl) 500 Mg Tablet 500 MG PO BIDMEALS Metformin HCl (Metformin HCl ER) 750 Mg Tab.er.24h 1 TAB PO DAILY for 30 Days, #30 TAB 0 Refills Permethrin (Permethrin) 5 % Cream..g. 1 APPL TP ONCE for 1 Day, #60 GM 0 Refills massage into skin from head to soles of feet one time, leave on for 8-14 hours then remove by thorough washing Pioglitazone HCl (Pioglitazone HCl) 45 Mg Tablet 1 TAB PO DAILY for 30 Days, #30 TAB 0 Refills Quetiapine Fumarate (Quetiapine Fumarate) 400 Mg Tablet 1 TAB PO HS for 30 Days, #30 TAB 0 Refills Trazodone HCl (Trazodone HCl) 50 Mg Tablet 1 TAB PO HS for 30 Days, #30 TAB 0 Refills Triamterene/Hydrochlorothiazid (Triamterene-Hctz 37.5-25 mg Cp) 37.5 Mg-25 Mg Capsule 1 CAP PO DAILY for 30 Days, #30 CAP 0 Refills Time spent arranging discharge: 31-60 minutes ATTESTATION BY PHYSICIAN I have seen and examined the patient. I reviewed the documentation, medical decision making, and treatment plan as noted by the resident above. I agree with the findings and plan of care. Garrick Menjivar MD, RAGHAVA R MD Oct 21, 2024 16:15
[2024-10-21] MEDS ORDERED: CHOL5POW PO (16:17)
--- NOTE | 2024-10-21 20:15 | NUR ---
DISCHARGE NOTE Patient discharged to home. All personal belongings in patient possession. ID bands removed. IV discontinued and dressing in place. Discharge teaching performed in person with written discharge instructions provided to patient. Patient sent down via wheelchair by Charge NurseTory. Complaint Investigations Officer to provide [employer] voucher for transport to patient verified address.
--- NOTE | 2024-10-21 20:47 | PN ---
endocrinology progress note Date of Service: Oct 21, 2024 subjective: glucose runs less than 200 mg/dl hba1c 10.7%, she has dm-2 for many years. she takes only metformin 1000 mg bid at home. glucose are improving. PAST MEDICAL HISTORY: [ diabetes, hypertension, bipolar disorder and hyperlipidemia] PAST SURGICAL HISTORY: [ Umbilical hernia repair and hysterectomy ] PAST SOCIAL HISTORY: [ Patient lives alone. Patient denies alcohol tobacco and recreational drug use ] FAMILY HISTORY: [ Stroke, hypertension and diabetes ] Coded Allergies: No Known Drug Allergies (Verified Allergy, Severe, 01/05/16) ASSESSMENT: Hyperglycemia secondary to uncontrolled diabetes POA hba1c 10.7% hba1c 10.7%, she has dm-2 for many years. she takes only metformin 1000 mg bid at home. glucose runs less than 200 mg/dl. Acute urinary tract infection POA Suspected Diabetic gastroparesis POA Hyponatremia POA Morbid obesity POA Hypertension POA Hyperlipidemia POA PLAN: continue lantus 35 units daily continue regular insulin 13 units qac before meals continue medium dose ssi monitor glucose qx6 hourly patient will need insulin at discharge. Vitals/Labs Vital Signs Date Time Temp Pulse Resp B/P (MAP) Pulse Ox O2 Delivery O2 Flow Rate FiO2 10/21/24 19:43 82 18 N/A Room Air 21 10/21/24 16:00 97.9 119/61 98 10/21/24 11:00 2.0 Laboratory Tests 10/21/24 11:18 Medications Current Medications Ondansetron HCl 4 mg ONCE ONCE IVP Last administered on 10/17/24at 00:39; Start 10/17/24 at 00:00; Stop 10/17/24 at 00:01; Status DC Ketorolac Tromethamine 30 mg ONCE ONCE IVP Last administered on 10/17/24at 00:39; Start 10/17/24 at 00:00; Stop 10/17/24 at 00:01; Status DC Ceftriaxone Sodium 1 gm ONCE ONCE IVPB Last administered on 10/17/24at 02:32; Start 10/17/24 at 01:30; Stop 10/17/24 at 01:31; Status DC Ondansetron HCl 4 mg Q6H PRN IV Last administered on 10/19/24at 03:18; Start 10/17/24 at 02:30; Stop 10/21/24 at 20:42; Status DC Sodium Chloride 1,000 ml @ 75 mls/hr [id number] IV Last administered on 10/17/24at 23:46; Start 10/17/24 at 02:30; Stop 10/18/24 at 19:36; Status DC Ceftriaxone Sodium 1 gm/ Sodium Chloride 50 ml @ 100 mls/hr BID IV; Start 10/17/24 at 09:00; Stop 10/17/24 at 02:26; Status DC Ceftriaxone Sodium 1 gm BID IVPB Last administered on 10/20/24at 20:36; Start 10/17/24 at 09:00; Stop 10/21/24 at 20:42; Status DC Pantoprazole Sodium 40 mg DAILY IVP Last administered on 10/20/24at 08:27; Start 10/17/24 at 09:00; Stop 10/21/24 at 20:42; Status DC Insulin Human Regular INSULIN SLIDING SCAL... ACHS SQ; Start 10/17/24 at 07:30; Stop 10/17/24 at 04:08; Status DC Dextrose 50 ml AD PRN IV; Start 10/17/24 at 03:00; Stop 10/21/24 at 20:42; Status DC Glucagon 1 mg AD PRN IM; Start 10/17/24 at 03:00; Stop 10/21/24 at 20:42; Status DC Magnesium Sulfate 50 ml @ 0 mls/hr PROTOCOL PRN IV; Start 10/17/24 at 03:00; Stop 10/20/24 at 07:33; Status DC Potassium Chloride 100 ml @ 50 mls/hr AD PRN IV; Start 10/17/24 at 03:00; Stop 10/20/24 at 07:33; Status DC Insulin Human Regular INSULIN SLIDING SCAL... ACHS SQ Last administered on 10/17/24at 16:31; Start 10/17/24 at 04:30; Stop 10/17/24 at 19:21; Status DC Ketorolac Tromethamine 15 mg ONCE ONCE IV Last administered on 10/17/24at 04:15; Start 10/17/24 at 04:30; Stop 10/17/24 at 04:32; Status DC Iohexol 35,000 mg STK-MED ONCE IV; Start 10/17/24 at 09:49; Stop 10/17/24 at 09:50; Status DC Insulin Human Regular INSULIN SLIDING SCAL... ACHS SQ Last administered on 10/17/24at 16:35; Start 10/17/24 at 16:30; Stop 10/17/24 at 19:16; Status DC Magnesium Sulfate 50 ml @ 0 mls/hr PROTOCOL PRN IV; Start 10/17/24 at 15:00; Stop 10/21/24 at 20:42; Status DC Aspirin 81 mg DAILY PO Last administered on 10/20/24at 08:27; Start 10/18/24 at 09:00; Stop 10/21/24 at 20:42; Status DC Atorvastatin Calcium 40 mg HS PO Last administered on 10/19/24at 19:18; Start 10/17/24 at 21:00; Stop 10/20/24 at 07:32; Status DC Gabapentin 300 mg BID PO Last administered on 10/20/24at 20:36; Start 10/17/24 at 21:00; Stop 10/21/24 at 20:42; Status DC Losartan Potassium 50 mg DAILY PO Last administered on 10/20/24at 08:27; Start 10/18/24 at 09:00; Stop 10/21/24 at 20:42; Status DC Trazodone HCl 50 mg HS PO Last administered on 10/20/24at 20:36; Start 10/17/24 at 21:00; Stop 10/21/24 at 20:42; Status DC Miscellaneous Medication 2 puff Q6H IH; Start 10/17/24 at 15:00; Stop 10/17/24 at 14:49; Status DC Calcium Carbonate 1 tab TID PRN PO; Start 10/17/24 at 15:00; Stop 10/21/24 at 20:42; Status DC Citalopram Hydrobromide 40 mg DAILY PO Last administered on 10/20/24at 08:27; Start 10/18/24 at 09:00; Stop 10/21/24 at 20:42; Status DC Quetiapine Fumarate 400 mg HS PO Last administered on 10/20/24at 20:36; Start 10/17/24 at 21:00; Stop 10/21/24 at 20:42; Status DC Albuterol Sulfate 2.5 mg Q6H IH; Start 10/17/24 at 15:00; Stop 10/17/24 at 15:47; Status DC Albuterol Sulfate 2.5 mg [id number] IH Last administered on 10/21/24at 19:41; Start 10/17/24 at 18:00; Stop 10/21/24 at 20:42; Status DC Insulin Human Regular INSULIN SLIDING SCAL... ACHS SQ; Start 10/17/24 at 21:00; Stop 10/17/24 at 21:52; Status DC Insulin Human Regular INSULIN SLIDING SCAL... Q6H6 SQ Last administered on 10/19/24at 16:56; Start 10/18/24 at 00:00; Stop 10/19/24 at 19:40; Status DC Potassium Chloride 100 ml @ 100 mls/hr AD PRN IV; Start 10/17/24 at 22:30; Stop 10/21/24 at 20:42; Status DC Potassium Chloride 20 meq AD PRN PO; Start 10/17/24 at 22:30; Stop 10/21/24 at 20:42; Status DC Potassium Chloride 20 meq AD PRN PO Last administered on 10/17/24at 23:57; Start 10/17/24 at 22:30; Stop 10/21/24 at 20:42; Status DC Potassium Chloride 20 meq STK-MED ONCE PO Last administered on 10/17/24at 22:29; Start 10/17/24 at 22:09; Stop 10/17/24 at 22:10; Status DC Insulin Human Regular INSULIN SLIDING SCAL... ACHS SQ; Start 10/18/24 at 07:30; Stop 10/17/24 at 22:49; Status DC Insulin Human Regular INSULIN SLIDING SCAL... Q6H6 SQ; Start 10/18/24 at 00:00; Stop 10/17/24 at 22:49; Status DC Insulin Glargine 25 units DAILY SQ Last administered on 10/18/24at 09:08; Start 10/18/24 at 09:00; Stop 10/19/24 at 06:45; Status DC Insulin Human Regular 5 unit TIDAC SQ Last administered on 10/19/24at 06:02; Start 10/18/24 at 07:30; Stop 10/19/24 at 06:45; Status DC Polyethylene Glycol 17 gm DAILY PO Last administered on 10/20/24at 08:27; Start 10/19/24 at 09:00; Stop 10/21/24 at 20:42; Status DC Lactulose 20 gm BID PRN PO; Start 10/18/24 at 19:00; Stop 10/21/24 at 20:42; Status DC Insulin Glargine 30 units DAILY SQ Last administered on 10/20/24at 08:28; Start 10/19/24 at 09:00; Stop 10/21/24 at 06:45; Status DC Insulin Human Regular 7 unit TIDAC SQ Last administered on 10/20/24at 06:04; Start 10/19/24 at 07:30; Stop 10/20/24 at 07:30; Status DC Insulin Human Regular INSULIN SLIDING SCAL... ACHS SQ Last administered on 10/21/24at 17:12; Start 10/19/24 at 21:00; Stop 10/21/24 at 20:42; Status DC Insulin Human Regular 10 unit TIDAC SQ Last administered on 10/20/24at 16:34; Start 10/20/24 at 11:30; Stop 10/20/24 at 20:46; Status DC Atorvastatin Calcium 40 mg HS PO Last administered on 10/20/24at 20:36; Start 10/20/24 at 21:00; Stop 10/21/24 at 20:42; Status DC Insulin Human Regular 13 unit TIDAC SQ Last administered on 10/21/24at 17:16; Start 10/21/24 at 07:30; Stop 10/21/24 at 20:42; Status DC Insulin Glargine 40 units DAILY SQ; Start 10/21/24 at 09:00; Stop 10/21/24 at 20:42; Status DC Propofol 200 mg STK-MED ONCE IV; Start 10/21/24 at 10:19; Stop 10/21/24 at 10:19; Status DC DEEPTHI REICH MD Oct 21, 2024 20:47
== END 2024-10-21 20:25 | disposition home or self-care (01) | DRG 247 ==
LOC: EDH 23:33 → EDHIP 23:34 → UNDOADMIN 10-17 01:09 → EDHIP 10-17 01:09 → 3CH 10-17 04:30 → EDHIP 10-17 04:30
PROVIDERS: ADMIT Internal Medicine; ATTEND Internal Medicine
PROC: 0DB68ZX Excision of Stomach, Via Natural or Artificial Opening Endoscopic, Diagnostic (ICD-10-PCS; principal; 2024-10-20)
DX: K56.690 Other partial intestinal obstruction (principal); E11.43 Type 2 diabetes mellitus with diabetic autonomic (poly)neuropathy; E87.1 Hypo-osmolality and hyponatremia; K31.84 Gastroparesis; Z68.43 Body mass index [BMI] 50.0-59.9, adult; Z20.822 Contact with and (suspected) exposure to COVID-19; N39.0 Urinary tract infection, site not specified; E11.65 Type 2 diabetes mellitus with hyperglycemia; I10 Essential (primary) hypertension; E66.01 Morbid (severe) obesity due to excess calories; E78.00 Pure hypercholesterolemia, unspecified; K59.00 Constipation, unspecified; E86.0 Dehydration; F31.9 Bipolar disorder, unspecified; G47.00 Insomnia, unspecified; K30 Functional dyspepsia; N20.0 Calculus of kidney; K44.9 Diaphragmatic hernia without obstruction or gangrene; K29.70 Gastritis, unspecified, without bleeding; Z90.710 Acquired absence of both cervix and uterus; Z71.3 Dietary counseling and surveillance; Z83.3 Family history of diabetes mellitus; Z82.49 Family history of ischemic heart disease and other diseases of the circulatory system; Z79.84 Long term (current) use of oral hypoglycemic drugs; Z82.3 Family history of stroke
CPT/HCPCS: 36415; 43239; 74018; 74178; 78264; 80048; 80053; 80061; 80076; 81001; 82270; 82948; 83036; 83735; 84443; 85025; 87040; 87086; 94640; 94664; 99285; A4606; A9541; G0378; J0696; J1815; J1885; J2405; J2470; J2704; J7030; Q9967; A4215; A4221; A4222; A4223; A4620; A4663; J3490

== ENCOUNTER 2025-03-25 14:23 | Emergency (ER) | payer MEDICAID ==
[~2025-03-25] VITALS: Ht 160 cm; Wt 128.8 kg
[~2025-03-25 14:23] MED LIST changes: +AMOX-426 PO; -CEFP100T9 PO; -CEPH500B PO; +CHOL5POW PO; +ESCI20TA38 PO; +GLIM4TAB36 PO; +INSU3INS3 SQ; +METF750T46 PO; -NITR100C4 PO; +PIOG45TA64 PO; +QUET400T13 PO; +TRAZ-185 PO; +TRIA1CAP88 PO
--- NOTE | 2025-03-25 14:27 | ERN ---
ED Note History of Present Illness Stated Complaint: ABDOMINAL PAIN Chief Complaint: Abdominal Pain Time Seen by MD: 14:24 Dictation: PATIENT IS A 55-YEAR-OLD DIABETIC FEMALE HERE TODAY WITH COMPLAINTS OF PERIUMBILICAL PAIN WITH NAUSEA ONSET FOR THE LAST 3-4 DAYS GETTING WORSE. SHE DENIES VOMITING, NO DIARRHEA NO FEVER NO CHILLS NO CHEST PAIN NO BACK PAIN. STATES SHE CALLED HER PRIMARY CARE DOCTOR WHO TOLD HER IT WAS HER PANCREAS AND GO TO THE HOSPITAL. Allergies: Coded Allergies: No Known Drug Allergies (Verified Allergy, Severe, 01/05/16) Home Meds Active Scripts Phenazopyridine HCl (Pyridium) 200 Mg Tab, 200 MG PO TIDPC for 3 Days, #9 TAB TAKE WITH FOOD TO PREVENT STOMACH UPSET. Prov:TIFFANIE VELASCO NP 03/25/25 Amoxicillin/Potassium Clav (Amox Tr-K Clv 875-125 mg Tab) 875 Mg-125 Mg Tablet, 1 EACH PO BID for 5 Days, #10 TAB 0 Refills Prov:TIFFANIE VELASCO NP 03/25/25 Cholestyramine (Cholestyramine Resin) 5 Gm Powder, 4 GM PO BID for Bile acid diarrhea for 30 Days, #240 GM 1 Refill Prov:GRAY ROJAS MD 10/21/24 Amoxicillin/Potassium Clav (Augmentin 500-125 Tablet) 500 Mg-125 Mg Tablet, 1 TAB PO BID PRN for Abdominal infection for 7 Days, #14 TAB 0 Refills Prov:GRAY ROJAS MD 10/21/24 Insulin Glargine,Hum.rec.anlog (Lantus Solostar) 100 Unit/Ml (3 Ml) Insuln.pen, 30 UNIT SQ HS PRN for Hyperglycemia for 30 Days, #30 ML 2 Refills Prov:GRAY ROJSA MD 10/21/24 Permethrin (Permethrin) 5 % Cream..g., 1 APPL TP ONCE for 1 Day, #60 GM 0 Refills massage into skin from head to soles of feet one time, leave on for 8-14 hours then remove by thorough washing Prov:NIDIA GONZALES 08/14/24 Diclofenac Sodium (Voltaren Arthritis Pain) 1 % Gel..gram., 20 GM TP BID for 10 Days, #1 TUBE Prov:SANGEETA GUILLAUME MD 07/29/24 Meloxicam (Meloxicam) 15 Mg Tablet, 15 MG PO DAILY PRN for PAIN for 10 Days, #10 TAB Prov:MARIA G NOLAN DO 06/10/24 Reported Medications Triamterene/Hydrochlorothiazid (Triamterene-Hctz 37.5-25 mg Cp) 37.5 Mg-25 Mg C apsule, 1 CAP PO DAILY for 30 Days, #30 CAP 0 Refills 10/17/24 Escitalopram Oxalate (Escitalopram Oxalate) 20 Mg Tablet, 1 TAB PO DAILY for 30 Days, #30 TAB 0 Refills 10/17/24 Glimepiride (Glimepiride) 4 Mg Tablet, 1 TAB PO DAILY for 30 Days, #30 TAB 0 Refills 10/17/24 Metformin HCl (Metformin HCl ER) 750 Mg Tab.er.24h, 1 TAB PO DAILY for 30 Days, #30 TAB 0 Refills 10/17/24 Pioglitazone HCl (Pioglitazone HCl) 45 Mg Tablet, 1 TAB PO DAILY for 30 Days, #30 TAB 0 Refills 10/17/24 Quetiapine Fumarate (Quetiapine Fumarate) 400 Mg Tablet, 1 TAB PO HS for 30 Days, #30 TAB 0 Refills 10/17/24 Trazodone HCl (Trazodone HCl) 50 Mg Tablet, 1 TAB PO HS for 30 Days, #30 TAB 0 Refills 10/17/24 Calcium Carb/Magnesium Hydrox (Rolaids Chewable Tablet) 1 Each Tab.chew, 1 TAB PO TID PRN for INDIGESTION, TAB.CHEW 01/05/16 Naproxen (Naproxen) 375 Mg Tablet, 375 MG PO BID 01/05/16 Albuterol Sulfate (Proventil Hfa) 6.7 Gm Hfa.aer.ad, 2 PUFF IH Q6H 01/05/16 Quetiapine Fumarate (Quetiapine Fumarate) 300 Mg Tablet, 300 MG PO HS 01/05/16 Glipizide (Glipizide) 5 Mg Tablet, 5 MG PO ACBKFST 01/05/16 Cetirizine HCl (Cetirizine HCl) 10 Mg Tablet, 10 MG PO DAILY 01/05/16 Atorvastatin Calcium (Atorvastatin Calcium) 40 Mg Tablet, 40 MG PO DAILY 01/05/16 Metformin HCl (Metformin HCl) 500 Mg Tablet, 500 MG PO BIDMEALS 01/05/16 Bupropion HCl (Bupropion Xl) 150 Mg Tab.er.24h, 150 MG PO DAILY 01/05/16 Ibuprofen (Ibuprofen) 600 Mg Tablet, 600 MG PO Q6H PRN for PAIN 01/05/16 Fenofibrate Nanocrystallized (Fenofibrate) 145 Mg Tablet, 145 MG PO DAILY, TAB 01/05/16 Gabapentin (Gabapentin) 300 Mg Capsule, 300 MG PO BID 01/05/16 Aspirin (Aspirin EC) 81 Mg Tablet.dr, 81 MG PO DAILY 01/05/16 Losartan Potassium (Losartan Potassium) 50 Mg Tablet, 50 MG PO DAILY 01/05/16 Past Medical History Past Medical History: Bipolar, Diabetes-Type II, High Cholesterol, Hypertension Additional Past Medical Hx: INSOMNIA Surgical History: Other Surgical History Other: HERNIA REPAIR Family History: Negative Social History: Smokers History: Not Applicable RN Note Reviewed/Agreed w/PFSH: Yes Review of System Dictation CONSTITUTIONAL: NEGATIVE EXCEPT FOR HPI HEAD/FACE: NEGATIVE EXCEPT FOR HPI EENT: NEGATIVE EXCEPT FOR HPI RESPIRATORY: NEGATIVE EXCEPT FOR HPI GASTROINTESTINAL/ABDOMINAL: NEGATIVE EXCEPT FOR HPI PERIUMBILICAL PAIN WITH N AUSEA GENITOURINARY: NEGATIVE EXCEPT FOR HPI MUSCULOSKELETAL: NEGATIVE EXCEPT FOR HPI INTEGUMENTARY: NEGATIVE EXCEPT FOR HPI NEUROLOGICAL/PSYCH: NEGATIVE EXCEPT FOR HPI HEMATOLOGIC/LYMPHATIC: NEGATIVE EXCEPT FOR HPI ALL SYSTEMS NEGATIVE, EXCEPT NOTED ABOVE. 13 POINT REVIEW OF SYSTEMS ASSESSED AND ALL NEGATIVE EXCEPT FOR ABOVE. Initial Vital Sign VS Vital Signs Date Time Temp Pulse Resp B/P (MAP) Pulse Ox O2 Delivery O2 Flow Rate FiO2 03/25/25 14:23 98.4 88 18 109/60 96 0 03/25/25 16:33 Room Air* 21 Physical Exam Dictation VITAL SIGNS REVIEWED GENERAL APPEARANCE: ALERT, ORIENTED X 3, MILD ACUTE DISTRESS, WELL DEVELOPED, NOURISHED. MORBID OBESITY HEAD AND FACE: NON-TRAUMATIC. EYES: PERRL, PINK CONJUNCTIVAS, EYELID NO TRAUMA, ANTERIOR CHAMBER WITH ARCUS SENILIS. EARS: PINNAS INTACT AND NO SIGNS OF TRAUMA OR ERYTHEMA EAR CANALS CLEAR AND NO DISCHARGE TM NO ERYTHEMA NOSE: NO DISCHARGE, NO BLEEDING. OROPHARYNX: MOUTH NORMAL, TONGUE PINK, PHARYNX CLEAR,NO ERYTHEMA, TONSILS NO EXUDATES, NO ABSCESSES NOTED, MUCOUS MEMBRANE MOIST NECK: SUPPLE, NON-TENDER, NO THYROMEGALY, NO MASSES, NO JVD, NO BRUITS BREAST:DEFERRED CHEST:NO TENDERNESS, NO CREPITUS, NO PARADOXICAL MOVEMENT, NO RETRACTIONS LUNGS:CLEAR, WELL-VENTILATED, SYMMETRIC, NO RALES, NO WHEEZING, NO RHONCHI, NO STRIDOR, GOOD BREATH SOUNDS BILATERALLY HEART: REGULAR RATE, REGULAR RHYTHM, NO MURMUR, NO GALLOPS VASCULAR: NO PERIPHERAL EDEMA, ABDOMEN: SOFT, POSITIVE BOWEL SOUNDS, NONDISTENDED, NO GUARDING, MILD PERIUMBILICAL PAIN TENDERNESS WITH PALPATION. RECTAL: DEFERRED GENITAL: DEFERRED NEUROLOGICAL: NORMAL SPEECH, MOTOR FUNCTION INTACT, SENSORY FUNCTION INTACT MUSCULOSKELETAL: NECK NONTENDER, FULL RANGE OF MOTION, BACK NONTENDER, FULL RANGE OF MOTION, EXTREMITIES: NONTENDER, FULL RANGE OF MOTION SKIN: COLOR PINK, DRY, NO TURGOR, NO RASH, NO LACERATIONS, NO ABRASIONS, NO CONTUSIONS. LYMPHATIC: DEFERRED Results (Laboratory/Radiology) Laboratory/Radiology Laboratory Tests Test 03/25/25 15:00 03/25/25 15:35 White Blood Count 8.9 K/uL (4.8-10.8) Red Blood Count 4.84 MIL/uL (4.00-5.50) Hemoglobin 14.8 g/dL (12.0-16.0) Hematocrit 43.7 % (36-48) Mean Corpuscular Volume 90.3 fL (79-99) Mean Corpuscular Hemoglobin 30.6 pg (27.0-33.0) Mean Corpuscular Hemoglobin Concent 33.9 g/dL (32.0-36.0) Red Cell Distribution Width 14.2 % (11.0-15.5) Platelet Count 269 K/uL (130-400) Mean Platelet Volume 10.2 fL (7.5-10.5) Immature Granulocyte % (Auto) 0.3 % (0-1) Neutrophils (%) (Auto) 56.5 % (40.0-77.0) Lymphocytes (%) (Auto) 34.8 % (21.0-51.0) Monocytes (%) (Auto) 5.4 % (3.0-13.0) Eosinophils (%) (Auto) 2.5 % (0.0-8.0) Basophils (%) (Auto) 0.5 % (0.0-5.0) Neutrophils # (Auto) 5.0 K/uL (1.8-7.7) Lymphocytes # (Auto) 3.1 K/uL (1.0-4.8) Monocytes # (Auto) 0.5 K/uL (0.1-1.0) Eosinophils # (Auto) 0.22 K/uL (0.00-0.70) Basophils # (Auto) 0.04 K/uL (0.00-0.20) Absolute Immature Granulocyte (auto 0.03 K/uL (0-1) Nucleated Red Blood Cells 0.0 % (0.0-0.19) Sodium Level 141 mmol/L (136-145) Potassium Level 4.0 mmol/L (3.5-5.1) Chloride Level 105 mmol/L (101-111) Carbon Dioxide Level 32 mmol/L (21-32) Blood Urea Nitrogen 16 mg/dL (7-18) Creatinine 0.7 mg/dL (0.5-1.0) Glomerular Filtration Rate Calc 101 mL/min (>90) Random Glucose 86 mg/dL (70-105) Total Calcium 9.6 mg/dL (8.5-10.1) Troponin I High Sensitivity 5 ng/L (4-50) Lipase 38 U/L (16-77) Urine Color YELLOW (YELLOW) Urine Appearance CLOUDY (CLEAR) H Urine pH 6.5 (5.0-8.0) Urine Specific [place] 1.022 (1.001-1.031) Urine Protein NEGATIVE mg/dL (NEGATIVE) Urine Glucose (UA) NEGATIVE mg/dL (NEGATIVE) Urine Ketones NEGATIVE mg/dL (NEGATIVE) Urine Occult Blood NEGATIVE (NEGATIVE) Urine Nitrate NEGATIVE (NEGATIVE) Urine Bilirubin NEGATIVE mg/dL (NEGATIVE) Urine Urobilinogen 2.0 mg/dL (0.2-1.0) H Urine Leukocyte Esterase 75 [place]/uL (NEGATIVE) H Urine RBC 2-5 /HPF (0-1) H Urine WBC 11-25 /HPF (0-1) H Urine Squamous Epithelial Cells FEW /HPF (0-2) Urine Calcium Oxalate Crystals RARE /LPF (None Seen) Urine Bacteria None /HPF (None Seen) GALLBLADDER AND BILE DUCTS: Cholecystectomy. No biliary ductal dilatation is evident. PANCREAS: Unremarkable. SPLEEN: Unremarkable. ADRENAL GLANDS: Stable bilateral indeterminate adrenal nodules, measuring 2.4 x 1.4 cm on the left and 1.4 x 1.0 cm on the right. KIDNEYS, URETERS, AND BLADDER: The kidneys appear within normal limits. There is no hydronephrosis or hydroureter. No urinary calculi are seen. STOMACH AND BOWEL: Unremarkable appearance of the stomach and bowel. No evidence of bowel obstruction. No evidence suggesting enteritis or colitis. APPENDIX: Normal appendix. PERITONEUM: No free fluid. No free air. LYMPH NODES: No lymphadenopathy is evident. REPRODUCTIVE: Hysterectomy. VASCULATURE: No evidence of abdominal aortic aneurysm. BONES: No aggressive appearing osseous lesion. No acute osseous pathology evident. IMPRESSION: No acute intra-abdominal or pelvic abnormality. Stable bilateral indeterminate adrenal nodules. /[facility] Labs Reviewed?: Yes EKG: (+) NSR EKG Comment: EKG NORMAL SINUS RHYTHM/HEART RATE 90/AXIS NORMAL/NO ECTOPY ED Course ED Course Orders Procedure Category Date Status Time Cbc With Differential LAB 03/25/25 Complete 14:24 Troponin I High LAB 03/25/25 Complete Sensitivity 14:24 Urinalysis Profile LAB 03/25/25 Complete 14:24 Ct Abdomen/Pelvis CT 03/25/25 Resulted W/Contrast 14:24 12 Lead Ekg Tracing- EKG 03/25/25 Complete Technical 14:24 0.9%Nacl 1000ml (Ns PHA 03/25/25 Complete 1000ml) 14:30 Ketorolac PHA 03/25/25 Complete Tromethamine 15mg/Ml 14:30 Lipase LAB 03/25/25 Complete 14:24 Basic Metabolic Panel LAB 03/25/25 Complete 14:24 Culture Urine TRAN 03/25/25 In Process 16:31 Iohexol (Omnipaque) PHA 03/25/25 Complete 17:19 Current Medications Medications (Trade) Dose Ordered Sig/Zach Route PRN Reason Start Time Stop Time Status Last Admin Dose Admin Iohexol (Omnipaque) 35,000 mg STK-MED ONCE IV 03/25/25 17:19 03/25/25 17:19 DC Ketorolac Tromethamine (toRADol) 15 mg ONCE ONCE IV 03/25/25 14:30 03/25/25 14:31 DC 03/25/25 15:06 Sodium Chloride 1,000 ml @ 0 mls/hr ONCE ONCE IV 03/25/25 14:30 03/25/25 14:31 DC 03/25/25 15:06 Vital Signs Date Time Temp Pulse Resp B/P (MAP) Pulse Ox O2 Delivery O2 Flow Rate FiO2 03/25/25 16:33 97.2 75 16 118/70 97 Room Air* 0 21 03/25/25 14:23 98.4 88 18 109/60 96 0 1820/PATIENT DISCHARGED HOME AFTER CT NEGATIVE PATIENT HAS SMALL CYSTITIS AND WE WILL BE TREATED WITH ANTIBIOTICS TOLD TO SEE HER PRIMARY CARE DOCTOR. Medical Decision Making MDM MDM: DIFFERENTIAL DIAGNOSIS: ACS/AMI/APPENDICITIS/DIVERTICULITIS/PANCREATITIS/HERNIA WITH INCARCERATION/STRANGULATION/UTI RATIONALE: TESTS CONSIDERED AND ORDERED SECONDARY TO SHARED DECISION MAKING INCLUDE: IMAGING/LABS PREVIOUS OUTSIDE RECORDS REVIEWED: OLD ER VISITS. RISK OF COMPLICATION AND/OR MORBIDITY OR MORTALITY OF PATIENT MANAGEMENT: NONE MEDICATIONS-PER MEDICATION RECONCILIATION NEED FOR HOSPITALIZATION: PATIENT DOES NOT MEET CRITERIA FOR HOSPITALIZATION. NO NEED FOR EMERGENCY MAJOR/MINOR SURGERY: NO THERE ARE NO SOCIAL CONCERNS WITH THIS PATIENT. PRESCRIPTION DRUG MANAGEMENT AUGMENT PRESCRIPTIONS WILL INCLUDE SYMPTOMATIC CARE PATIENT'S PRIOR EXTERNAL MEDICAL RECORDS FROM OTHER ER VISITS WERE REVIEWED BY ME INDICATED. PRIOR TESTING AND RESULTS FROM PREVIOUS VISITS WERE REVIEWED. PRIOR TESTS WERE TAKEN INTO ACCOUNT WITH MEDICAL DECISION MAKING AND RESOURCE UTILIZATION, INDEPENDENT HISTORIAN/HISTORIANS WERE USED TO OBTAIN COMPLETE MEDICAL HISTORY. I INDEPENDENTLY INTERPRETED THE TEST THAT WERE PERFORMED, RESULTS WERE REVIEWED BY ME AND CONSIDERED FINDINGS ON RADIOLOGY IF ORDERED. MEDICAL MANAGEMENT AND EXAMINATION INTERPRETATION DISCUSSIONS WERE HAD BY ME WITH OTHER QUALIFIED HEALTHCARE PROFESSIONALS INDICATED FOR THE PATIENT'S CARE. DX & DISP Disposition: Discharge Departure Impression: Primary Impression: Acute cystitis with hematuria Condition: Stable Scripts Phenazopyridine HCl (Pyridium) 200 Mg Tab 200 MG PO TIDPC for 3 Days, #9 TAB TAKE WITH FOOD TO PREVENT STOMACH UPSET. Prov: TIFFANIE VELASCO DUPLICATING MACHINE SERVICER 03/25/25 Amoxicillin/Potassium Clav (Amox Tr-K Clv 875-125 mg Tab) 875 Mg-125 Mg Tablet 1 EACH PO BID for 5 Days, #10 TAB 0 Refills Prov: TIFFANIE VELASCO DUPLICATING MACHINE SERVICER 03/25/25 Additional Instructions: FOLLOW-UP WITH PRIMARY CARE PROVIDER IN 1 TO 2 DAYS. TAKE MEDICATIONS DIRECTED HERE IN THE EMERGENCY ROOM. OKAY TO CONTINUE HOME MEDICATIONS UNLESS OTHERWISE DISCUSSED DURING YOUR VISIT IN THE EMERGENCY ROOM TODAY. RETURN TO YOUR NEAREST EMERGENCY ROOM IF SYMPTOMS WORSEN OR IF THERE IS NO IMPROVEMENT. CALL 911 IF YOU NEED IMMEDIATE ASSISTANCE. TAKE TYLENOL OR MOTRIN [id number] NEEDED AND IF NO CONTRAINDICATIONS ARE PRESENT. INCREASE ORAL HYDRATION. A WOUND CULTURE OR URINE CULTURE WAS ORDERED HERE IN THE EMERGENCY ROOM DEPARTMENT PLEASE FOLLOW-UP WITH PRIMARY CARE PROVIDER AND ADVISE THEM TO GET REPEAT PORTS FROM OUR FACILITY. IF YOU HAD ANY JENNIE WRAP/SPLINTS THAT WERE APPLIED HERE, PLEASE DO NOT REMOVE THEM UNTIL YOU SEE YOUR PRIMARY CARE OR SPECIALTY. TAKE ANTIBIOTICS DIRECTED UNTIL GONE. INCREASE YOUR WATER INTAKE. REMEMBER THE PYRIDIUM WILL TURN YOUR URINE ORANGE RED. SEE YOUR PRIMARY CARE DOCTOR FOR FOLLOW UP Referrals: JAKE CASON MD (PCP) Time of Disposition: 18:22 I have reviewed the case, and I agree with, Diagnosis and Plan TIFFANIE VELASCO NP Mar 25, 2025 14:27 MARIA G NOLAN DO Mar 25, 2025 18:34
--- NOTE | 2025-03-25 14:30 | EKG ---
[facility] Test Date: 2025-03-25 Test Time: 14:26:54 Pat Name: CHANELL FAIR Department: ED Room: Gender: F Rib Cutter: 08 : 1970 Requested By: TIFFANIE VELASCO Order Number: [id number] Reading MD: Nicolas Kennedy Measurements Intervals [place] Rate: 90 P: 51 NE: 154 QRS: 21 QRSD: 87 T: 58 QT: 359 QTc: 439 Interpretive Statements Sinus rhythm Compared to ECG 08/14/2024 01:56:50 ST (T wave) deviation no longer present Myocardial infarct finding no longer present Electronically Signed On 03-25-2025 19:01:06 CDT by Nicolas Kennedy Please click the below link to view image of tracing.
[2025-03-25 15:05] LABS: IMMATURE GRANULOCYTE ABSOLUTE 0.03 K/uL (0-1); NUCLEATED RED BLOOD CELLS 0.0 % (0.0-0.19); PLATELET COUNT (AUTO) 269 K/uL (130-400); RED BLOOD CELL COUNT(AUTO) 4.84 MIL/uL (4.00-5.50); RED CELL DISTRIBUTION WIDTH 14.2 % (11.0-15.5); WHITE BLOOD COUNT (AUTO) 8.9 K/uL (4.8-10.8)
[2025-03-25] MEDS: 0.9%NACL 1000ML 1,000 ML IV ONE (15:06)
[2025-03-25 15:13] LABS: CREATININE 0.7 mg/dL (0.5-1.0); GLOMERULAR FILTR. RATE CALC 101.0 mL/min (>90); GLUCOSE,RANDOM 86.0 mg/dL (70-105); SODIUM SERUM 141.0 mmol/L (136-145); UREA NITROGEN, BLOOD 16.0 mg/dL (7-18)
[2025-03-25 16:29] LABS: APPEARANCE,URINE CLOUDY (CLEAR); GLUCOSE, URINE (UA) NEGATIVE (NEGATIVE); LEUKOCYTE ESTERASE ,URINE 75 Leu/uL (NEGATIVE); NITRATE,URINE NEGATIVE (NEGATIVE); OCCULT BLOOD,URINE NEGATIVE (NEGATIVE)
[2025-03-25 16:31] LABS: ADD UA MICROSCOPIC YES
[2025-03-25 16:34] LABS: CALCIUM OXALATE CRYSTALS,UR RARE /LPF (None Seen); SQUAMOUS EPITHELIAL CELL,UR FEW /HPF (0-2)
[2025-03-25] MEDS ORDERED: IOHEXOL 350 MG/ML 100ML INFUS..BTL IV ONE (17:19)
--- NOTE | 2025-03-25 18:14 | HMCIMG ---
EXAM: CT Abdomen and Pelvis with IV contrast CLINICAL HISTORY: PERIUMBILICAL AND LEFT UPPER QUADRANT PAIN TENDERNESS 3-4 DAYS. TECHNIQUE: Axial computed tomography images of the abdomen and pelvis with intravenous contrast. CONTRAST: with intravenous contrast. COMPARISON: 10/13/2024. FINDINGS: LUNG BASES: The lung bases appear clear. No pleural effusions are seen. LIVER: Unremarkable. GALLBLADDER AND BILE DUCTS: Cholecystectomy. No biliary ductal dilatation is evident. PANCREAS: Unremarkable. SPLEEN: Unremarkable. ADRENAL GLANDS: Stable bilateral indeterminate adrenal nodules, measuring 2.4 x 1.4 cm on the left and 1.4 x 1.0 cm on the right. KIDNEYS, URETERS, AND BLADDER: The kidneys appear within normal limits. There is no hydronephrosis or hydroureter. No urinary calculi are seen. STOMACH AND BOWEL: Unremarkable appearance of the stomach and bowel. No evidence of bowel obstruction. No evidence suggesting enteritis or colitis. APPENDIX: Normal appendix. PERITONEUM: No free fluid. No free air. LYMPH NODES: No lymphadenopathy is evident. REPRODUCTIVE: Hysterectomy. VASCULATURE: No evidence of abdominal aortic aneurysm. BONES: No aggressive appearing osseous lesion. No acute osseous pathology evident. IMPRESSION: No acute intra-abdominal or pelvic abnormality. Stable bilateral indeterminate adrenal nodules. /[place]
[2025-03-25] MEDS ORDERED: PHEN-847 PO (18:22)
[2025-03-25] MEDS ORDERED: AMOX1TAB16 PO (18:22)
[2025-03-25 18:39] VITALS: BP 124/61; PULSE 84; RESP 18; TEMP 98.2; O2SAT 97
== END 2025-03-25 18:45 | disposition home or self-care (01) ==
LOC: EDH 14:23
DX: N30.01 Acute cystitis with hematuria (principal); E11.9 Type 2 diabetes mellitus without complications; E78.00 Pure hypercholesterolemia, unspecified; I10 Essential (primary) hypertension; F17.200 Nicotine dependence, unspecified, uncomplicated; Z79.1 Long term (current) use of non-steroidal anti-inflammatories (NSAID); Z79.82 Long term (current) use of aspirin; Z79.84 Long term (current) use of oral hypoglycemic drugs; Z79.899 Other long term (current) drug therapy; Z98.890 Other specified postprocedural states
CPT/HCPCS: 99285; 74177; 96374; 96361; 84484; 80048; 83690; 85025; 87086; 81001; 36415; 93005; J1885; J7030; Q9967

== ENCOUNTER 2025-08-26 21:24 | Emergency (ER) | payer MEDICAID ==
[~2025-08-26] VITALS: Ht 157.5 cm; Wt 133.8 kg
[~2025-08-26 21:24] MED LIST changes: +AMOX1TAB16 PO; +IBUP-1492 PO; -IBUP-2070 PO; +PERM60CR21 TP; -PERM60CR4 TP; +PHEN-847 PO
[2025-08-26 22:07] LABS: IMMATURE GRANULOCYTE ABSOLUTE 0.02 K/uL (0-1); NUCLEATED RED BLOOD CELLS 0.0 % (0.0-0.19); PLATELET COUNT (AUTO) 211 K/uL (130-400); RED BLOOD CELL COUNT(AUTO) 4.83 MIL/uL (4.00-5.50); RED CELL DISTRIBUTION WIDTH 13.4 % (11.0-15.5); WHITE BLOOD COUNT (AUTO) 8.6 K/uL (4.8-10.8)
[2025-08-26 22:14] LABS: CREATININE 0.6 mg/dL (0.5-1.0); GLOMERULAR FILTR. RATE CALC 105.0 mL/min (>90); GLUCOSE,RANDOM 121.0 mg/dL (70-105); SODIUM SERUM 136.0 mmol/L (136-145); UREA NITROGEN, BLOOD 22.0 mg/dL (7-18)
--- NOTE | 2025-08-26 22:31 | HMCIMG ---
EXAM: CR Chest, 1 View. CLINICAL HISTORY: cp COMPARISON: CR dated February 25, 2016. FINDINGS: LUNGS: The lungs show no infiltrate or other acute finding. PLEURAL SPACES: No pleural effusion or pneumothorax. MEDIASTINUM: Cardiac size and mediastinal contours within normal limits. BONES: No acute osseous abnormality. IMPRESSION: No acute cardiopulmonary pathology is evident. No significant interval change. /[place]
[2025-08-26 22:43] LABS: ADD UA MICROSCOPIC YES; APPEARANCE,URINE CLOUDY (CLEAR); GLUCOSE, URINE (UA) NEGATIVE (NEGATIVE); LEUKOCYTE ESTERASE ,URINE 75 Leu/uL (NEGATIVE); NITRATE,URINE NEGATIVE (NEGATIVE); OCCULT BLOOD,URINE NEGATIVE (NEGATIVE)
[2025-08-26 22:46] LABS: SQUAMOUS EPITHELIAL CELL,UR RARE /HPF (0-2)
[2025-08-26] MEDS ORDERED: NITROGLYCERIN 0.4 MG SL TAB SL PRN (23:00)
--- NOTE | 2025-08-26 23:01 | EKG ---
[facility] Test Date: 2025-08-26 Test Time: 22:52:23 Pat Name: CHANELL FAIR Department: ED Room: Gender: F Vocational Instructor: [id number] : 1970 Requested By: DAVID VALLE Order Number: [id number] Reading MD: Esteban Marsh Measurements Intervals [place] Rate: 96 P: 50 CO: 166 QRS: 11 QRSD: 86 T: 55 QT: 340 QTc: 430 Interpretive Statements Sinus rhythm Compared to ECG 03/25/2025 14:26:54 No significant changes Electronically Signed On 08-27-2025 10:11:24 KITCHEN AND COUNTER WORKER by Esteban Marsh Please click the below link to view image of tracing.
--- NOTE | 2025-08-26 23:07 | ERN ---
ED Note History of Present Illness Stated Complaint: CHEST PAIN, SOB Chief Complaint: Chest Pain Time Seen by MD: 21:25 Time Seen by Midlevel: 21:28 Dictation: 55-year-old female with a history of hypertension, cholesterol, depression, anxiety coming in with complaints of left-sided rib pain right shoulder pain and generalized chest pain onset just prior to arrival. Denies any diaphoresis, nausea or vomiting or shortness a breath. Allergies: Coded Allergies: No Known Drug Allergies (Verified Allergy, Severe, 01/05/16) Home Meds Active Scripts Phenazopyridine HCl (Pyridium) 200 Mg Tab, 200 MG PO TIDPC for 3 Days, #9 TAB TAKE WITH FOOD TO PREVENT STOMACH UPSET. Prov:TIFFANIE VELASCOP 03/25/25 Amoxicillin/Potassium Clav (Amox Tr-K Clv 875-125 mg Tab) 875 Mg-125 Mg Tablet, 1 EACH PO BID for 5 Days, #10 TAB 0 Refills Prov:TIFFANIE VELASCOP 03/25/25 Cholestyramine (Cholestyramine Resin) 5 Gm Powder, 4 GM PO BID for Bile acid diarrhea for 30 Days, #240 GM 1 Refill Prov:GRAY ROJAS MD 10/21/24 Amoxicillin/Potassium Clav (Augmentin 500-125 Tablet) 500 Mg-125 Mg Tablet, 1 TAB PO BID PRN for Abdominal infection for 7 Days, #14 TAB 0 Refills Prov:GRAY ROJAS MD 10/21/24 Insulin Glargine,Hum.rec.anlog (Lantus Solostar) 100 Unit/Ml (3 Ml) Insuln.pen, 30 UNIT SQ HS PRN for Hyperglycemia for 30 Days, #30 ML 2 Refills Prov:GRAY ROJAS MD 10/21/24 Permethrin (Permethrin) 5 % Cream..g., 1 APPL TP ONCE for 1 Day, #60 GM 0 Refills massage into skin from head to soles of feet one time, leave on for 8-14 hours then remove by thorough washing Prov:NIDIA GONZALES [facility] 08/14/24 Diclofenac Sodium (Voltaren Arthritis Pain) 1 % Gel..gram., 20 GM TP BID for 10 Days, #1 TUBE Prov:SANGEETA GUILLAUME MD 07/29/24 Meloxicam (Meloxicam) 15 Mg Tablet, 15 MG PO DAILY PRN for PAIN for 10 Days, #10 TAB Prov:MARIA G NOLAN DO 06/10/24 Reported Medications Triamterene/Hydrochlorothiazid (Triamterene-Hctz 37.5-25 mg Cp) 37.5 Mg-25 Mg C apsule, 1 CAP PO DAILY for 30 Days, #30 CAP 0 Refills 10/17/24 Escitalopram Oxalate (Escitalopram Oxalate) 20 Mg Tablet, 1 TAB PO DAILY for 30 Days, #30 TAB 0 Refills 10/17/24 Glimepiride (Glimepiride) 4 Mg Tablet, 1 TAB PO DAILY for 30 Days, #30 TAB 0 Refills 10/17/24 Metformin HCl (Metformin HCl ER) 750 Mg Tab.er.24h, 1 TAB PO DAILY for 30 Days, #30 TAB 0 Refills 10/17/24 Pioglitazone HCl (Pioglitazone HCl) 45 Mg Tablet, 1 TAB PO DAILY for 30 Days, #30 TAB 0 Refills 10/17/24 Quetiapine Fumarate (Quetiapine Fumarate) 400 Mg Tablet, 1 TAB PO HS for 30 Days, #30 TAB 0 Refills 10/17/24 Trazodone HCl (Trazodone HCl) 50 Mg Tablet, 1 TAB PO HS for 30 Days, #30 TAB 0 Refills 10/17/24 Calcium Carb/Magnesium Hydrox (Rolaids Chewable Tablet) 1 Each Tab.chew, 1 TAB PO TID PRN for INDIGESTION, TAB.CHEW 01/05/16 Naproxen (Naproxen) 375 Mg Tablet, 375 MG PO BID 01/05/16 Albuterol Sulfate (Proventil Hfa) 6.7 Gm Hfa.aer.ad, 2 PUFF IH Q6H 01/05/16 Quetiapine Fumarate (Quetiapine Fumarate) 300 Mg Tablet, 300 MG PO HS 01/05/16 Glipizide (Glipizide) 5 Mg Tablet, 5 MG PO ACBKFST 01/05/16 Cetirizine HCl (Cetirizine HCl) 10 Mg Tablet, 10 MG PO DAILY 01/05/16 Atorvastatin Calcium (Atorvastatin Calcium) 40 Mg Tablet, 40 MG PO DAILY 01/05/16 Metformin HCl (Metformin HCl) 500 Mg Tablet, 500 MG PO BIDMEALS 01/05/16 Bupropion HCl (Bupropion Xl) 150 Mg Tab.er.24h, 150 MG PO DAILY 01/05/16 Ibuprofen (Ibuprofen) 600 Mg Tablet, 600 MG PO Q6H PRN for PAIN 01/05/16 Fenofibrate Nanocrystallized (Fenofibrate) 145 Mg Tablet, 145 MG PO DAILY, TAB 01/05/16 Gabapentin (Gabapentin) 300 Mg Capsule, 300 MG PO BID 01/05/16 Aspirin (Aspirin EC) 81 Mg Tablet.dr, 81 MG PO DAILY 01/05/16 Losartan Potassium (Losartan Potassium) 50 Mg Tablet, 50 MG PO DAILY 01/05/16 Past Medical History Past Medical History: Bipolar, Diabetes-Type II, Gallstones, High Cholesterol, Hypertension Additional Past Medical Hx: INSOMNIA Surgical History: Other Surgical History Other: HERNIA REPAIR Family History: Negative Social History: Smokers History: Not Applicable Review of System Dictation Constitutional: Negative for fever,chills, and weight loss Eyes: Negative for injury, pain,redness, and discharge ENT: Negative for injury,pain or swelling Cardiovascular: Complaining of chest pain with the palpitations or edema Respiratory: Negative for shortness of breath, cough, and wheezing, Abdomen/GI: Negative for abdominal pain, nausea, vomiting, diarrhea, and constipation Back: Negative for injury and pain : Negative for injury, bleeding and discharge MS/Extremity: Negative for injury and deformity Skin: Negative for rash, and discoloration Neuro: Negative for headache, weakness, numbness, tingling, and seizure Psych: Negative for suicide ideation, homicidal ideation, and hallucinations Review of Systems: was completed Initial Vital Sign VS Vital Signs Date Time Temp Pulse Resp B/P (MAP) Pulse Ox O2 Delivery O2 Flow Rate FiO2 08/26/25 21:27 98.1 104 18 166/80 99 Room Air 0 08/26/25 23:34 21 Physical Exam Dictation General: awake, alert, NAD Head/Face: Normocephalic, atraumatic Eyes: PERRL, EOMI, vision at baseline ENT: oral cavity clear, TMs clear, no signs of infection Neck: Trachea midline, supple, no nuchal rigidity Cardiovascular: RRR, normal S1/S2, No MRGs, no JVD Respiratory: CTAB, no respiratory distress, No rales or wheezes Abdomen: Soft, non-tender, non-distended, normal bowel sounds, no guarding or rebound. Skin: Warm, dry, normal turgor, no rash MS/Extremity: Pulses equal, no cyanosis, neurovascular intact, FROM Neuro: COAx4, GCS 15, strength 5/5, CN 2-12 intact, normal cerebellar exam, normal gait, Psych: Normal behavior, mood, and affect normal Results (Laboratory/Radiology) Laboratory/Radiology Laboratory Tests Test 08/26/25 21:55 08/26/25 22:10 White Blood Count 8.6 K/uL (4.8-10.8) Red Blood Count 4.83 MIL/uL (4.00-5.50) Hemoglobin 14.2 g/dL (12.0-16.0) Hematocrit 44.2 % (36-48) Mean Corpuscular Volume 91.5 fL (79-99) Mean Corpuscular Hemoglobin 29.4 pg (27.0-33.0) Mean Corpuscular Hemoglobin Concent 32.1 g/dL (32.0-36.0) Red Cell Distribution Width 13.4 % (11.0-15.5) Platelet Count 211 K/uL (130-400) Mean Platelet Volume 10.0 fL (7.5-10.5) Immature Granulocyte % (Auto) 0.2 % (0-1) Neutrophils (%) (Auto) 71.3 % (40.0-77.0) Lymphocytes (%) (Auto) 21.4 % (21.0-51.0) Monocytes (%) (Auto) 4.5 % (3.0-13.0) Eosinophils (%) (Auto) 2.4 % (0.0-8.0) Basophils (%) (Auto) 0.2 % (0.0-5.0) Neutrophils # (Auto) 6.1 K/uL (1.8-7.7) Lymphocytes # (Auto) 1.9 K/uL (1.0-4.8) Monocytes # (Auto) 0.4 K/uL (0.1-1.0) Eosinophils # (Auto) 0.21 K/uL (0.00-0.70) Basophils # (Auto) 0.02 K/uL (0.00-0.20) Absolute Immature Granulocyte (auto 0.02 K/uL (0-1) Nucleated Red Blood Cells 0.0 % (0.0-0.19) Sodium Level 136 mmol/L (136-145) Potassium Level 3.7 mmol/L (3.5-5.1) Chloride Level 104 mmol/L (101-111) Carbon Dioxide Level 25 mmol/L (21-32) Blood Urea Nitrogen 22 mg/dL (7-18) H Creatinine 0.6 mg/dL (0.5-1.0) Glomerular Filtration Rate Calc 105 mL/min (>90) Random Glucose 121 mg/dL (70-105) H Total Calcium 8.5 mg/dL (8.5-10.1) Troponin I High Sensitivity 4 ng/L (4-50) B-Type Natriuretic Peptide 7 pg/mL (0-100) Lipase 95 U/L (16-77) H Urine Color LIGHT-YELLOW (YELLOW) Urine Appearance CLOUDY (CLEAR) H Urine pH 6.0 (5.0-8.0) Urine Specific [place] 1.015 (1.001-1.031) Urine Protein NEGATIVE mg/dL (NEGATIVE) Urine Glucose (UA) NEGATIVE mg/dL (NEGATIVE) Urine Ketones NEGATIVE mg/dL (NEGATIVE) Urine Occult Blood NEGATIVE (NEGATIVE) Urine Nitrate NEGATIVE (NEGATIVE) Urine Bilirubin NEGATIVE mg/dL (NEGATIVE) Urine Urobilinogen 0.2 mg/dL (0.2-1.0) Urine Leukocyte Esterase 75 [place]/uL (NEGATIVE) H Urine RBC 0-1 /HPF (0-1) Urine WBC 11-25 /HPF (0-1) H Urine Squamous Epithelial Cells RARE /HPF (0-2) Urine Bacteria MANY /HPF (None Seen) Labs Reviewed?: Yes EKG Comment: EKGs did not at 10:52 p.m.. Sinus rhythm at a rate of 96. No STEMI interpreted by ER MD. X-RAY Comment: [place] [address] [place] [id number] IMAGING REPORT Signed PATIENT: CHANELL FAIR MR#: [id number] : 1970 SEX: F AGE: 55 LOCATION: [facility] ORDER 35 STATUS: REG ER REPORT#: [id number] SERVICE 34 REASON: cp ORDERING PHYSICIAN: DAVID VALLE CNP PROCEDURE: CXR1VW - CHEST 1VW EXAM: CR Chest, 1 View. CLINICAL HISTORY: cp COMPARISON: CR dated February 25, 2016. FINDINGS: LUNGS: The lungs show no infiltrate or other acute finding. PLEURAL SPACES: No pleural effusion or pneumothorax. MEDIASTINUM: Cardiac size and mediastinal contours within normal limits. BONES: No acute osseous abnormality. IMPRESSION: No acute cardiopulmonary pathology is evident. No significant interval change. /[place] DICTATED BY: FRANSISCO TINEO Jr., MD DATE: 08/26/252329 ELECTRONICALLY SIGNED BY: FRANSISCO TINEO Jr., MD DATE: 08/26/252329 ED Course ED Course Orders Procedure Category Date Status Time Cbc With Differential LAB 08/26/25 Complete 21:35 Basic Metabolic Panel LAB 08/26/25 Complete 21:35 Troponin I High LAB 08/26/25 Complete Sensitivity 21:35 Chest 1vw RAD 08/26/25 Resulted 21:35 Lipase LAB 08/26/25 Complete 21:35 Urinalysis Profile LAB 08/26/25 Complete 21:35 B-Type Natriuretic LAB 08/26/25 Complete Peptide 21:35 Culture Urine TRAN 08/26/25 In Process 22:43 12 Lead Ekg Tracing- EKG 08/26/25 Complete Technical 22:44 Acetaminophen 500mg PHA 08/26/25 Complete Tab (Tylenol 500mg T 23:00 Nitroglycerin 0.4mg PHA 08/26/25 In Process Sl Tab (Nitrostat) 23:00 Ketorolac PHA 08/26/25 Complete Tromethamine 15mg/Ml 23:00 Current Medications Medications (Trade) Dose Ordered Sig/Zach Route PRN Reason Start Time Stop Time Status Last Admin Dose Admin Acetaminophen (TYLenol 500MG TAB) 1,000 mg ONCE ONCE PO 08/26/25 23:00 08/26/25 23:01 DC 08/26/25 23:16 Ketorolac Tromethamine (toRADol) 15 mg ONCE ONCE IV 08/26/25 23:00 08/26/25 23:01 DC 08/26/25 23:16 Nitroglycerin (Nitrostat) 0.4 mg AD PRN SL CHEST PAIN 08/26/25:00 09/25/25 22:59 Vital Signs Date Time Temp Pulse Resp B/P (MAP) Pulse Ox O2 Delivery O2 Flow Rate FiO2 08/26/25 23:34 98.6 96 18 150/72 97 Room Air* 0 21 08/26/25 21:27 98.1 104 18 166/80 99 Room Air 0 HEART Score Response (Comments) Value History: Low suspicion (0) 0 EKG: Normal 0 Age: 45-65yrs (+1) 1 Risk Factors: 3+ risk factors (+2) 2 Initial Troponin: Normal limit (0) 0 Total 3 Medical Decision Making MDM MDM: 65-year-old female with a past medical history of hypertension, bipolar disorder, anxiety and depression presents with a left rib pain and right shoulder pain associated with the intermittent chest discomfort. She denies trauma, shortness a breath, fever, cough, recent illness, leg swelling, syncope or exertional worsening. No history of PE or DVT. Tenderness noted over left ribs and shoulder region, no deformity no crepitus. Lungs clear heart sounds normal no murmurs. Normal neuro exam. No skin rash or ecchymosis. EKGs shows normal sinus rhythm no acute ischemic changes. Chest x-ray shows no acute finding. Cardiac enzymes normal. Given normal workup, negative EKGs, negative troponin and no chest rate abnormalities presentation was consistent with a musculoskeletal chest wall pain likely due to strain. Score is three. Low risk. Patient will be discharged to follow up outpatient with PCP. Educated on red flag symptoms of when to return back to the emergency room like worsening symptoms, nausea, vomiting, severe chest pain. Patient verbalized understanding, answered all questions. Differential diagnosis: And STEMI, STEMI, dehydration, costochondritis, anxiety Rationale: Tests considered and ordered secondary to shared decision making include: Previous outside records reviewed: Old ER visits. Risk of complication and/or morbidity or mortality of patient management: None Medications-Per medication reconciliation Need for hospitalization: Patient does not meet criteria for hospitalization. Need for emergency major/minor surgery: No There are no social concerns with this patient. Prescription drug management Prescriptions will include symptomatic care Patient's prior external medical records from other ER visits were reviewed by me as indicated. Prior testing and results from previous visits were reviewed. Prior tests were taken into account with medical decision making and resource utilization, independent historian/historians were used to obtain complete medical history. I independently interpreted the test that were performed, results were reviewed by me and considered findings on radiology if ordered. Medical management and examination interpretation discussions were had by me with other qualified healthcare professionals as indicated for the patient's care. DX & DISP Disposition: Discharge Departure Impression: Primary Impression: Chest wall pain Condition: Stable Additional Instructions: Return to the hospital if you develop any severe chest pain, nausea, vomiting, fevers. Otherwise follow up with your primary care doctor in 1-2 days. Referrals: JAKE CASON MD (PCP) Time of Disposition: 23:47 I have reviewed the case, and I agree with, Diagnosis and Plan DAVID VALLE [facility] Aug 26, 2025 23:07
[2025-08-26 23:34] VITALS: BP 150/72; PULSE 96; RESP 18; TEMP 98.6; O2SAT 97
== END 2025-08-26 23:52 | disposition home or self-care (01) ==
LOC: EDH 21:24
DX: R07.89 Other chest pain (principal); R07.81 Pleurodynia; M25.511 Pain in right shoulder; E11.9 Type 2 diabetes mellitus without complications; F31.9 Bipolar disorder, unspecified; E78.00 Pure hypercholesterolemia, unspecified; I10 Essential (primary) hypertension; F41.9 Anxiety disorder, unspecified; F17.200 Nicotine dependence, unspecified, uncomplicated; Z79.1 Long term (current) use of non-steroidal anti-inflammatories (NSAID); Z79.82 Long term (current) use of aspirin; Z79.84 Long term (current) use of oral hypoglycemic drugs; Z79.899 Other long term (current) drug therapy; Z98.890 Other specified postprocedural states
CPT/HCPCS: 99285; 96374; 71045; 84484; 80048; 83880; 83690; 85025; 87086; 87186; 81001; 36415; 93005; J1885